=== PATIENT | female | born 1985 | race Two or more races ===

== ENCOUNTER 2024-04-18 19:08 | Inpatient (IN) | payer MEDICAID ==
[~2024-04-18] VITALS: Ht 175.3 cm; Wt 120.7 kg
[~2024-04-18 19:08] MED LIST: PRED5PAK2
[2024-04-18 20:00] LABS: Basophils # (auto) 0 10 ^3/uL (0-0.2); Basophils % (auto) 0.6 % (0.0-2.0); Eosinophils # (auto) 0.1 10 ^3/uL (0-0.8); Eosinophils % (auto) 2.1 % (0.0-7.0); Hematocrit 34.6 % (36.0-46.0); Hemoglobin 11.4 g/dL (12.2-16.2); Lymphocytes # (auto) 1.8 10 ^3/uL (0.4-5.4); Lymphocytes % (auto) 25.5 % (10.0-50.0); Mean Corpuscular Hemoglobin 30.2 pg (28.0-32.0); Mean Corpuscular Hgb Conc. 32.8 g/dL (32.0-36.0); Monocytes # (auto) 0.8 10 ^3/uL (0-1.3); Monocytes % (auto) 11.6 % (0.0-12.0); Neutrophils # (auto) 4.3 10 ^3/uL (1.6-8.6); Neutrophils % (auto) 60.2 % (37.0-80.0); Platelet Count (auto) 265 10^3/uL (140-450); Red Blood Cells 3.76 10^6/uL (4.0-5.20); Red Cell Distribution Width 13.8 % (11.8-14.3); White Blood Cell 7.1 10^3/uL (4.4-10.8)
[2024-04-18 20:09] LABS: Potassium 3.6 mmol/L (3.5-5.1); Sodium 142 mmol/L (136-145)
[2024-04-18 20:10] LABS: Anion Gap 7 (5-15); Carbon Dioxide 27 mmol/L (20-31)
[2024-04-18 20:11] LABS: Calcium 10.1 mg/dL (8.7-10.4)
[2024-04-18 20:14] LABS: Chloride 108 mmol/L (98-107)
[2024-04-18 20:15] LABS: BUN/Creatinine Ratio 16.5 (10.0-20.0); Blood Urea Nitrogen 15 mg/dL (9-23); Glucose 78 mg/dL (74-106)
[2024-04-18 20:19] LABS: INR 1.03 (0.9-1.15); Prothrombin Time 10.9 sec (9.3-11.8)
--- NOTE | 2024-04-18 20:28 | DVH ---
EXAM: CT LOWER EXTREMITY NON JOINT RIGH INDICATION: PAIN EXAM DATE: 04/18/2024 07:54 PM COMPARISON: None TECHNIQUE: Multiple axial CT images of the right distal lower extremity were obtained using bone [employer] rithm. Axial and coronal reformatting was done. Bone and soft tissue windows were reviewed. Radiation Dose Information: CT Dose: CTDI volume is 7.75 mGy. Dose-length product is 411.29 mGy*cm Findings: There is no evidence of an acute fracture, dislocation, blastic, or lytic lesions. No radiopaque foreign bodies. No joint effusion. Superficial soft tissue ulceration along the distal malin. No evidence of osseous o r muscular involvement. Impression: 1. No acute osseous abnormality. 2. Superficial soft tissue ulceration along the distal malin. 3. No evidence of osseous or muscular involvement.
--- NOTE | 2024-04-18 21:25 | ED.PDOC ---
Musculoskeletal HPI Comments This patient is a pleasant but morbidly obese 38-year-old female who arrives to the ED today via EMS due to a right lower extremity bleeding concern that occurred approximately 1 hour prior to arrival. Patient states she has had a right lower extremity leg wound for the past six years that has never healed. Patient states she has had fluid management in the past, but is currently on her own. Patient states that she saw something on her leg and rubbed it which caused significant bleeding. Patient contacted EMS and they brought her to our facility. Patient arrives with continued mild bleeding and a blood saturated leg dressing. Chief Complaint: Lower Extremity Time Seen by MD: 19:14 Primary Care Provider: ALEXA King Notes: Nurses Notes, Dump Motor Operator Notes Allergies: Coded Allergies: NO KNOWN ALLERGIES (Unverified , 09/30/10) Home Meds Reported Medications Prednisone (Sterapred 12 Day) 5 Mg Matheus 09/30/10 Information Source: Patient, Emergency Med Personnel Mode of Arrival: EMS Location: Right Extremity Location: Leg Timing: Minutes Prehospital treatment: None Severity: Moderate Able to Move Extremity: Yes Bear Weight: Fully Pain: Mild Hand Dominance: Right Mechanism: Spontaneous Circumstances: Spontaneous Onset of Symptoms: Spontaneous DVT Risk Factors: NONE Past Medical History PAST MEDICAL HISTORY: Denies Past Medical History (Other): Patient has a multiyear history of right lower extremity nonhealing wound. Surgical History: Denies all surgeries SURG TECH History: No Pertinent SURG TECH History Family History Family History: Reviewed,noncontributory to illness, No family hx of Cancer, No family hx of DM, No family hx of Heart liza, No family hx of HTN, No family hx ofKidney liza, No family hx of Liver liza, No family hx of Lung liza, No family hx of Stroke Social History Smoker: Non-Smoker Alcohol: Denies ETOH Use Drugs: Denies Drug Use Lives In: Home Constitutional: denies: chills, diaphoresis, fatigue, fever, malaise, sweats, weakness, others EENTM: denies: blurred vision, double vision, ear bleeding, ear discharge, ear drainage, ear pain, ear ringing, eye pain, eye redness, hearing loss, mouth pain, mouth swelling, nasal discharge, nose bleeding, nose congestion, nose pain, photophobia, tearing, throat pain, throat swelling, voice changes, others Respiratory: denies: cough, hemoptysis, orthopnea, SOB at rest, shortness of breath, SOB with excertion, stridor, wheezing, others Cardiovascular: denies: chest pain, dizzy spells, diaphoresis, Dyspnea on exertion, edema, irregular heart beat, left arm pain, lightheadedness, palpitations, PND, syncope, others Gastrointestinal: denies: abdomen distended, abdominal pain, blood streaked bowels, constipated, diarrhea, dysphagia, difficulty swallowing, hematemesis, melena, nausea, poor appetite, poor fluid intake, rectal bleeding, rectal pain, vomiting, others Genitourinary: denies: abnormal vagina bleeding, burning, dyspareunia, dysuria, flank pain, frequency, hematuria, incontinence, pain, , vagina discharge, urgency, others Neurological: denies: dizziness, fainting, headache, left sided numbness, left sided weakness, numbness, paresthesia, pre-existing deficit, right sided numbness, right sided weakness, seizure, speech problems, tingling, tremors, weakness, others Musculoskeletal: denies: back pain, gout, joint pain, joint swelling, muscle pain, muscle stiffness, neck pain, others Integumetry: reports: wounds (Bleeding right lower extremity wound); denies: bruises, change in color, change in hair/nails, dryness, laceration, lesions, lumps, rash, others Allergic/Immunocompromised: denies: Difficulty Healing, Frequent Infections, Hives, Itching, others Hematologic/Lymphatic: denies: anemia, blood clots, easy bleeding, easy bruising, swollen glands, others Psychiatric: denies: anxiety, bipolar disorder, depression, hopeless, panic disorder, schizophrenia, sleepless, suicidal, others Physical Exam General Appearance: Mild Distress (Moderate distress due to anxiety related to the patient's bleeding wound.), Obese HEENT: Normal ENT Inspection, Pharynx Normal, TMs Normal Neck: Full Range of Motion, Non-Tender, Normal, Normal Inspection Respiratory: Chest Non-Tender, Lungs Clear, No Accessory Muscle Use, No Respiratory Distress, Normal Breath Sounds Cardiovascular: No Edema, No JVD, No Murmur, No Gallop, Normal Peripheral Pulses, Regular Rate/Rhythm Breast Exam: Deferred Gastrointestinal: No Organomegaly, Non Tender, No Pulsatile Mass, Normal Bowel Sounds, Soft Genitalia: Deferred Pelvic: Deferred Rectal: Deferred Extremities: No calf tenderness, Normal capillary refill, Normal range of motion, No pedal edema Neurologic: Alert, results engineer II-XII nml as Tested, No Motor Deficits, Normal Affect, Normal Mood, No Sensory Deficits Cerebellar Function: Normal Reflexes: Normal Skin: Wounds (Patient has a large polyp sized eschar and blood weeping wound to the right lower malin. Localized erythema without edema. No lymphangitis.) Lymphatic: No Adenopathy Was a procedure done? Was a procedure done?: No Differential Diagnosis EXT Differential Diagnosis: Other (Sepsis, osteomyelitis, nonhealing wound) X-Ray, Labs, Meds, VS Vital Signs Date Time Temp Pulse Resp B/P (MAP) Pulse Ox O2 Delivery O2 Flow Rate FiO2 04/18/24 19:18 98.3 77 18 146/86 (106) 99 Lab Test 04/18/24 19:47 Range/Units White Blood Count 7.1 4.4-10.8 10^3/uL Red Blood Count 3.76 L 4.0-5.20 10^6/uL Hemoglobin 11.4 L 12.2-16.2 g/dL Hematocrit 34.6 L 36.0-46.0 % Mean Corpuscular Volume 92.0 80.0-100.0 fL Mean Corpuscular Hemoglobin 30.2 28.0-32.0 pg Mean Corpuscular Hemoglobin Concent 32.8 32.0-36.0 g/dL Red Cell Distribution Width 13.8 11.8-14.3 % Platelet Count 265 140-450 10^3/uL Mean Platelet Volume 8.3 6.9-10.8 fL Neutrophils (%) (Auto) 60.2 37.0-80.0 % Lymphocytes (%) (Auto) 25.5 10.0-50.0 % Monocytes (%) (Auto) 11.6 0.0-12.0 % Eosinophils (%) (Auto) 2.1 0.0-7.0 % Basophils (%) (Auto) 0.6 0.0-2.0 % Neutrophils # (Auto) 4.3 1.6-8.6 10 ^3/uL Lymphocytes # (Auto) 1.8 0.4-5.4 10 ^3/uL Monocytes # (Auto) 0.8 0-1.3 10 ^3/uL Eosinophils # (Auto) 0.1 0-0.8 10 ^3/uL Basophils # (Auto) 0 0-0.2 10 ^3/uL Nucleated Red Blood Cells 0.0 % Prothrombin Time 10.9 9.3-11.8 sec Prothrombin Time INR 1.03 0.9-1.15 Sodium Level 142 136-145 mmol/L Potassium Level 3.6 3.5-5.1 mmol/L Chloride Level 108 H 98-107 mmol/L Carbon Dioxide Level 27 20-31 mmol/L Anion Gap 7 5-15 Blood Urea Nitrogen 15 9-23 mg/dL Creatinine 0.91 0.550-1.02 mg/dL Glomerular Filtration Rate Calc 84 >90 mL/min BUN/Creatinine Ratio 16.5 10.0-20.0 Serum Glucose 78 74-106 mg/dL Lactic Acid Level 0.9 0.4-2.0 mmol/L Calcium Level 10.1 8.7-10.4 mg/dL X-Ray, Labs, Meds, VS Comment All studies performed in the ED today were evaluated by me personally. Serum laboratories were unremarkable for any acute systemic process. CT of the right lower extremity was unremarkable for any osteomyelitis formation. This wound is not healing and now has bleeding concerns. Patient will be admitted for possible surgical evaluation and wound care assessment. Time of 1ST Reevaluation: 21:24 Reevaluation 1ST: Improved Consultation: PCP Patient Education/Counseling: Diagnosis, Treatment Family Education/Counseling: Diagnosis, Treatment Departure 1 Departure Time of Disposition: 21:25 Impression: Primary Impression: Open leg wound Disposition: ADMITTED INPATIENT Condition: Stable Discharged With: Self Critical Care Note Critical Care Time?: No Stability Stability form required: No Heart Score Heart Score: Heart Score Response (Comments) Value History N/A 0 EKG N/A 0 Age N/A 0 Risk Factors N/A 0 Troponin N/A 0 Total 0 JOSEFINA WASHINGTON PAC Apr 18, 2024 21:25
[2024-04-18] MEDS ORDERED: VANCOMYCIN PER PHARMACY 0 MG IV SCH (22:15)
[2024-04-18] MEDS ORDERED: MORPHINE SULFATE INJ 2 MG/ml SYRG IV PRN (23:15)
[2024-04-18] MEDS ORDERED: NITROGLYCERIN 0.4 MG SL TAB SL PRN (23:15)
--- NOTE | 2024-04-18 23:23 | DVHHP2 ---
History of Present Illness Reason for Visit: Open leg wound History of Present Illness The patient is a 38-year-old female with past medical history of lupus and chronic nonhealing wound presented to [facility] ED for evaluation of right lower extremity open wound. Patient reports she has had a right lower extremity leg wound for the past 5 years that has never healed, has home health nurse following treatment. Patient was seen and evaluated in the ED, laboratory data shows WBC 7.1, hemoglobin 11.4, hematocrit 34.6, platelets 265, sodium 142, potassium 3.6, BUN 15, creatinine 0.91, GFR 84, glucose 78, calcium 10.1, blood pressure 146/86, heart rate 77, temperature 98.3 F, O2 saturation 99% on room air. CT of the right lower extremity revealing superficial soft tissue ulceration along the distal malin, no acute osseous abnormality. Patient was started on IV antibiotic regimen vancomycin, please see medication orders section in the computer. On my assessment, patient denies chest pain, no headache, no dizziness, no diaphoresis, no shortness of breath, no nausea, no vomiting, no fever, no chills. Patient was admitted for further evaluation and medical management. Past Medical History Lupus, Chronic wound, Past Surgical History Denies all surgeries Family History Reviewed, noncontributory to the management of this case. Past Social History The patient lives at home, denies smoking, alcohol or illicit drugs abuse. Review of Systems Constitutional: Yes: Weakness; No: Fever, Chills, Sweats, Malaise, Other Eyes: No: Pain, Vision change, Conjunctivae inflammation, Eyelid inflammation, Other, Redness ENT: No: Ear pain, Ear discharge, Nose pain, Nose discharge, Nose congestion, Mouth pain, Mouth swelling, Throat pain, Throat swelling, Other Respiratory: No: Cough, Dry, Shortness of breath, SOB with excertion, Wheezing, Hemoptysis, Pleuritic Pain, Sputum, Wheezing, Other Cardiovascular: No: Chest Pain, Palpitations, Orthopnea, Paroxysmal Noc. Dyspnea, Edema, Lt Headedness, Other Gastrointestinal: No: Nausea, Vomiting, Abdominal Pain, Diarrhea, Constipation, Melena, Hematochezia, Other Genitourinary: No Dysuria, No Frequency, No Incontinence, No Hematuria, No Retention, No Other Musculoskeletal: other (Wound right lower extremity wound.); No: neck pain, shoulder pain, arm pain, back pain, hand pain, leg pain, foot pain Skin: No: Rash, Lesions, Jaundice, Bruising, Other Neurological: No: Weakness, Numbness, Incoordination, Change in speech, Confusion, Seizures, Other Allergies: Coded Allergies: NO KNOWN ALLERGIES (Unverified , 09/30/10) Medications Current Medications Medications Dose Ordered Sig/Jose Route Start Time Stop Time Status Last Admin Dose Admin Vancomycin HCl 0 ml @ 0 mls/hr UD IV 04/18/24 22:15 UNV Vancomycin HCl 250 ml @ 250 mls/hr Q1H IV 04/18/24 22:30 04/19/24 00:29 Exam Vital Signs Vital Signs Date Time Temp Pulse Resp B/P (MAP) Pulse Ox O2 Delivery O2 Flow Rate FiO2 04/18/24 21:52 97.9 70 16 122/65 (84) 100 97.9 General Appearance: Alert, Oriented X3, Cooperative, No acute distress HEENT: Atraumatic, PERRLA, EOMI, Mucous membr. moist/pink Respiratory: Clear to auscultation, Normal air movement Cardiovascular: Regular rate, Normal S1, Normal S2, No murmurs Abdominal: Normal bowel sounds, Soft, No tenderness, No hepatospenomegaly, No masses Extremities: No clubbing, No cyanosis, No edema, Normal pulses, Other (Right lower extremity stent dizziness) Skin: No rashes, No breakdown, No significant lesion Neuro: Normal speech, Normal tone, Sensation intact, Cranial nerves 3-12 NL, Reflexes 2+, Other (Generalized weakness) Psych/Mental Status: Mental status NL, Mood NL Labs/Xrays Labs Test 04/18/24 19:47 Range/Units White Blood Count 7.1 4.4-10.8 10^3/uL Red Blood Count 3.76 L 4.0-5.20 10^6/uL Hemoglobin 11.4 L 12.2-16.2 g/dL Hematocrit 34.6 L 36.0-46.0 % Mean Corpuscular Volume 92.0 80.0-100.0 fL Mean Corpuscular Hemoglobin 30.2 28.0-32.0 pg Mean Corpuscular Hemoglobin Concent 32.8 32.0-36.0 g/dL Red Cell Distribution Width 13.8 11.8-14.3 % Platelet Count 265 140-450 10^3/uL Mean Platelet Volume 8.3 6.9-10.8 fL Neutrophils (%) (Auto) 60.2 37.0-80.0 % Lymphocytes (%) (Auto) 25.5 10.0-50.0 % Monocytes (%) (Auto) 11.6 0.0-12.0 % Eosinophils (%) (Auto) 2.1 0.0-7.0 % Basophils (%) (Auto) 0.6 0.0-2.0 % Neutrophils # (Auto) 4.3 1.6-8.6 10 ^3/uL Lymphocytes # (Auto) 1.8 0.4-5.4 10 ^3/uL Monocytes # (Auto) 0.8 0-1.3 10 ^3/uL Eosinophils # (Auto) 0.1 0-0.8 10 ^3/uL Basophils # (Auto) 0 0-0.2 10 ^3/uL Nucleated Red Blood Cells 0.0 % Prothrombin Time 10.9 9.3-11.8 sec Prothrombin Time INR 1.03 0.9-1.15 Sodium Level 142 136-145 mmol/L Potassium Level 3.6 3.5-5.1 mmol/L Chloride Level 108 H 98-107 mmol/L Carbon Dioxide Level 27 20-31 mmol/L Anion Gap 7 5-15 Blood Urea Nitrogen 15 9-23 mg/dL Creatinine 0.91 0.550-1.02 mg/dL Glomerular Filtration Rate Calc 84 >90 mL/min BUN/Creatinine Ratio 16.5 10.0-20.0 Serum Glucose 78 74-106 mg/dL Lactic Acid Level 0.9 0.4-2.0 mmol/L Calcium Level 10.1 8.7-10.4 mg/dL PATIENT: YESI ARNOLDNUSRATCCT: [id number] UNIT: [id number] : 1985 LOC: ER ROOM / BED: / AGE / SEX: 38 / F ADM STATUS: REG ER SERVICE 24 ORDERING PHYSICIAN: JOSEFINA WASHINGTON PAC PROCEDURE(s): RLEX - LOWER EXTREMITY NON JOINT RIGH REASON: PAIN ORDER NUMBER(s): [id number], ACCESSION NUMBER(s): [id number] EXAM: CT LOWER EXTREMITY NON JOINT RIGH INDICATION: PAIN EXAM DATE: 04/18/2024 07:54 PM COMPARISON: None TECHNIQUE: Multiple axial CT images of the right distal lower extremity were obtained using bone algorithm. Axial and coronal reformatting was done. Bone and soft tissue windows were reviewed. Radiation Dose Information: CT Dose: CTDI volume is 7.75 mGy. Dose-length product is 411.29 mGy*cm Findings: There is no evidence of an acute fracture, dislocation, blastic, or lytic lesions. No radiopaque foreign bodies. No joint effusion. Superficial soft tissue ulceration along the distal malin. No evidence of osseous or muscular involvement. Impression: 1. No acute osseous abnormality. 2. Superficial soft tissue ulceration along the distal malin. 3. No evidence of osseous or muscular involvement. Assessment/Plan Assessment/Plan Open leg wound Generalized weakness History of systemic lupus erythematosus Plan 1. Admit to [facility] 2. Breathing treatment 3. Pain control management 4. IV antibiotic management 5. Management of fluids and electrolytes 6. Consultation for hospitalist/wound care 7. Diagnostic test right lower extremity CT 8. DVT prophylaxis-on Lovenox 9. Repeat labs CBC, CMP in a.m. 10. Continue with current medical management 11. Treatment plan discussed with patient and RN. Patient verbalized understanding. Plan discussed with: Patient, Other (RN) Problem List: (1) Open leg wound (2) Generalized weakness (3) History of systemic lupus erythematosus Date of Service: Apr 18, 2024 Billing Provider: BC SEGUNDO DNP Common Visit Codes: [id number] INP/OBS CARE (HIGH) BC SEGUNDO DNP Apr 18, 2024 23:23
[2024-04-19] VITALS (7 sets, daily range): BP systolic 116–160; BP diastolic 6–90; PULSE 18–112; RESP 18–20; TEMP 97.6–98.4; O2SAT 90–100
[2024-04-19] MEDS: VANCOMYCIN 1GM/250ML KIT 250 ML IV ONE (00:16)
[2024-04-19] MEDS: VANCOMYCIN 1GM/250ML KIT 250 ML IV SCH (00:51)
[2024-04-19] MEDS: ONDANSETRON HCL 4 MG/2 ML VIAL IV PRN (01:08)
[2024-04-19] MEDS: MORPHINE SULFATE INJ 2 MG/ml SYRG IV PRN (01:09)
[2024-04-19] MEDS: HYDROcodone-ACET 5/325MG TAB PO PRN (04:35)
[2024-04-19] MEDS: SODIUM CHLOR 0.9% PF (SALINE LOCK) 10ML VIAL/SYR IV SCH (06:00)
[2024-04-19] MEDS: MULTIPLE VITAMIN TAB PO SCH (08:39)
[2024-04-19] MEDS: ZINC SULFATE 220mg CAP or TAB PO SCH (08:39)
[2024-04-19] MEDS: ASCORBIC ACID 500 MG TAB PO SCH (08:40)
[2024-04-19] MEDS: ENOXAPARIN SOD 40 MG/0.4 ML SYRINGE SC SCH (08:41)
[2024-04-19] MEDS ORDERED: CLOPIDOGREL BISULFATE 75 MG TAB PO SCH (10:00)
[2024-04-19 10:40] LABS: Basophils # (auto) 0 10 ^3/uL (0-0.2); Basophils % (auto) 0.2 % (0.0-2.0); Eosinophils # (auto) 0.2 10 ^3/uL (0-0.8); Eosinophils % (auto) 2.8 % (0.0-7.0); Hematocrit 32.3 % (36.0-46.0); Hemoglobin 10.6 g/dL (12.2-16.2); Lymphocytes # (auto) 1.6 10 ^3/uL (0.4-5.4); Lymphocytes % (auto) 27.4 % (10.0-50.0); Mean Corpuscular Hgb Conc. 32.7 g/dL (32.0-36.0); Mean Corpuscular Volume 91.8 fL (80.0-100.0); Monocytes # (auto) 0.7 10 ^3/uL (0-1.3); Monocytes % (auto) 12.5 % (0.0-12.0); Neutrophils # (auto) 3.2 10 ^3/uL (1.6-8.6); Neutrophils % (auto) 57.1 % (37.0-80.0); Nucleated Red Blood Cells % 0.4 %; Platelet Count (auto) 225 10^3/uL (140-450); Red Blood Cells 3.51 10^6/uL (4.0-5.20); Red Cell Distribution Width 13.7 % (11.8-14.3); White Blood Cell 5.7 10^3/uL (4.4-10.8)
[2024-04-19 11:14] LABS: Alanine Aminotransferase 14 U/L (7-40); Albumin 3.6 g/dL (3.2-4.8); Alkaline Phosphatase 73 U/L (46-116); Anion Gap 6 (5-15); Aspartate Aminotransferase 16 U/L (13-40); BUN/Creatinine Ratio 15.7 (10.0-20.0); Bilirubin, Total 0.2 mg/dL (0.2-1.0); Blood Urea Nitrogen 14 mg/dL (9-23); Calcium 9.7 mg/dL (8.7-10.4); Carbon Dioxide 27 mmol/L (20-31); Chloride 110 mmol/L (98-107); Glucose 92 mg/dL (74-106); Potassium 3.8 mmol/L (3.5-5.1); Sodium 143 mmol/L (136-145); Total Protein 6.9 g/dL (5.7-8.2)
[2024-04-19 12:41] LABS: Erythrocyte Sedimentation Rate 54 mm/hr (0-20)
--- NOTE | 2024-04-19 13:11 | DVHPN2 ---
Subjective 38-year-old lady with chronic right leg ulcerations. She was under the care of Wound Care team at [facility] but apparently she stopped three years ago. She has lupus. She said she saw a reproductive surgeon three months ago. Reviewed: Care Plan, H&P, Labs, Medications, Previous Orders, Radiology Changes from previous H/P or p: No Changes Objective Vitals Vital Signs Date Time Temp Pulse Resp B/P (MAP) Pulse Ox O2 Delivery O2 Flow Rate FiO2 04/19/24 10:16 61 18 116/68 04/19/24 09:00 97.6 96 97.6 04/19/24 08:05 Room Air* 0 21 Intake/Output Intake and Output 04/19/24 07:00 Intake Total 490 ml Balance 490 ml Intake Oral 240 ml IV Total 250 ml General Appearance: Alert, Oriented X3, Cooperative, No acute distress HEENT: Atraumatic Lungs: Clear to auscultation Cardiovascular: Regular rate Extremities: Other (Right mid lower pretibial area large ulcerations very sensitive to touch/tender with surrounding erythema and warmth) Medications Current Medications Medications Dose Ordered Sig/Jose Route Start Time Stop Time Status Last Admin Dose Admin Vancomycin HCl 0 ml @ 0 mls/hr UD IV 04/18/24 22:15 Sodium Chloride 10 ml Q8HR IV 04/19/24 06:00 04/19/24 06:00 10 ML Acetaminophen/ Hydrocodone Bitart 1 tab Q4HP PRN PO 04/18/24 23:15 04/19/24 04:35 1 TAB Ondansetron HCl 4 mg Q4HP PRN IV 04/18/24 23:15 04/19/24 01:08 4 MG Docusate Sodium 100 mg BIDPRN PRN PO 04/18/24 23:15 Enoxaparin Sodium 40 mg DAILY SC 04/19/24 10:00 Acetaminophen 650 mg Q6HP PRN PO 04/18/24 23:15 Morphine Sulfate 2 mg Q4HPRN PRN IV 04/18/24 23:15 04/19/24 10:16 2 MG Nitroglycerin 0.4 mg Q5MINP PRN SL 04/18/24 23:15 Morphine Sulfate 2 mg Q30M PRN IV 04/18/24 23:15 Zinc Sulfate 220 mg DAILY PO 04/19/24 10:00 04/19/24 08:39 220 MG Ascorbic Acid 500 mg BID PO 04/19/24 10:00 04/19/24 08:40 500 MG Multivitamins 1 tab DAILY PO 04/19/24 10:00 04/19/24 08:39 1 TAB Vancomycin HCl 250 ml @ 200 mls/hr Q12H IV 04/19/24 17:00 Laboratory Results Laboratory Tests 04/19/24 10:08 Chemistry Test 04/18/24 19:47 04/19/24 10:08 Calcium Level 10.1 mg/dL (8.7-10.4) 9.7 mg/dL (8.7-10.4) Albumin 3.6 g/dL (3.2-4.8) Total Protein 6.9 g/dL (5.7-8.2) Coagulation Test 04/18/24 19:47 Prothrombin Time 10.9 sec (9.3-11.8) Prothrombin Time INR 1.03 (0.9-1.15) LFT Test 04/19/24 10:08 Alanine Aminotransferase (ALT) 14 U/L (7-40) Alkaline Phosphatase 73 U/L (46-116) Aspartate Amino Transferase (AST) 16 U/L (13-40) Total Bilirubin 0.2 mg/dL (0.2-1.0) Assessment/Plan Assessment/Plan Right lower extremity/mid lower pretibial large ulcer with surrounding cellulitis Lupus Morbid obesity Anemia Medical noncompliance or poor compliance Plan: Check sed rate and CRP. Wound consult. Podiatry consult. Further plan per orders Plan discussed with: Patient My Orders Orders - ERYN JEAN-BAPTISTE MD Procedure Category Date Status Time Urinalysis LAB 04/19/24 Logged 11:48 Complete Blood Count LAB 04/20/24 Verified 06:00 Wound Culture W/ Gs BESS 04/19/24 Logged 12:39 Cleanse Wound With RIO 04/19/24 In Process Wound Clean 12:39 * Dietary Consult CONS 04/19/24 Transmitted 12:39 *Podiatry Consult CONS 04/19/24 Transmitted Musson(Dvmg) 13:04 Rt Low Ext Art Duplex US 04/19/24 Logged 13:05 * Wound Consult CONS 04/19/24 Transmitted Date of Service: Apr 19, 2024 Billing Provider: ERYN JEAN-BAPTISTE MD Common Visit Codes: [id number] INP/OBS CARE(HIGH) ERYN JEAN-BAPTISTE MD Apr 19, 2024 13:11
--- NOTE | 2024-04-19 14:54 | DVH ---
Right Lower Extremity Arterial Duplex Clinical History: arterial Comparison: None Technique: Duplex Doppler evaluation including color Doppler and spectral/pulsed waveform analysis of the lower extremity arteries was performed. Findings: RIGHT: Peak systolic velocities are as follows: BUSINESS ENGLISH INSTRUCTOR 171 cm/s Deep femoral 115 cm/s SFA proximal 180 cm/s SFA mid-portion 181 cm/s SFA distal 136 cm/s Popliteal 54 cm/s Posterior tibial 58 cm/s Dorsalis pedis 58 cm/s The waveforms are triphasic with diastolic flow. IMPRESSION: 1. No hemodynamically significant stenosis based on peak systolic velocity criteria. REFERENCE VALUES, [facility] ([facility]) vascular Imaging Lab Criteria: Peak systolic velocity ranges (in cm/sec) are as follows: <150 cm/s - <20 % stenosis 150-200 cm/s - 20-49% stenosis 200-300 cm/s - 50-75% stenosis >300 cm/s -> 75% stenosis
[2024-04-19] MEDS: VANCOMYCIN 1.25GM/250ML 250 ML IV SCH (17:49)
[2024-04-19] MEDS: DOCUSATE SOD 100 MG CAP PO PRN (21:42)
[2024-04-20 01:00] VITALS: BP 112/51; PULSE 82; RESP 18; TEMP 98.1; O2SAT 97
[2024-04-20 05:00] VITALS: BP 105/52; PULSE 66; RESP 18; TEMP 98.2; O2SAT 96
[2024-04-20 07:49] LABS: Basophils # (auto) 0 10 ^3/uL (0-0.2); Basophils % (auto) 0.3 % (0.0-2.0); Eosinophils # (auto) 0.2 10 ^3/uL (0-0.8); Eosinophils % (auto) 3.5 % (0.0-7.0); Hematocrit 31.6 % (36.0-46.0); Hemoglobin 10.5 g/dL (12.2-16.2); Lymphocytes % (auto) 35.3 % (10.0-50.0); Mean Corpuscular Hemoglobin 30.5 pg (28.0-32.0); Mean Corpuscular Hgb Conc. 33.1 g/dL (32.0-36.0); Mean Corpuscular Volume 92.1 fL (80.0-100.0); Monocytes # (auto) 0.7 10 ^3/uL (0-1.3); Monocytes % (auto) 11.7 % (0.0-12.0); Neutrophils # (auto) 2.8 10 ^3/uL (1.6-8.6); Neutrophils % (auto) 49.2 % (37.0-80.0); Platelet Count (auto) 227 10^3/uL (140-450); Red Blood Cells 3.43 10^6/uL (4.0-5.20); Red Cell Distribution Width 13.6 % (11.8-14.3); White Blood Cell 5.7 10^3/uL (4.4-10.8)
[2024-04-20 09:00] VITALS: BP 120/66; PULSE 68; RESP 16; TEMP 97.8; O2SAT 99
--- NOTE | 2024-04-20 12:13 | DVHPN2 ---
Reviewed: Care Plan, H&P, Labs, Medications, Previous Orders, Radiology Changes from previous H/P or p: No Changes Objective Vitals Vital Signs Date Time Temp Pulse Resp B/P (MAP) Pulse Ox O2 Delivery O2 Flow Rate FiO2 04/20/24 09:00 97.8 68 16 120/66 (84) 99 97.8 04/19/24 20:00 Room Air* 0 21 Intake/Output Intake and Output 04/20/24 07:00 Intake Total 815 ml Balance 815 ml Intake Oral 815 ml General Appearance: Alert, Oriented X3, Cooperative, No acute distress HEENT: Atraumatic Lungs: Clear to auscultation Cardiovascular: Regular rate Extremities: Other (Right mid lower pretibial area large ulcerations very sensitive to touch/tender with surrounding erythema and warmth) Medications Current Medications Medications Dose Ordered Sig/Jose Route Start Time Stop Time Status Last Admin Dose Admin Vancomycin HCl 0 ml @ 0 mls/hr UD IV 04/18/24 22:15 Sodium Chloride 10 ml Q8HR IV 04/19/24 06:00 04/20/24 05:20 10 ML Acetaminophen/ Hydrocodone Bitart 1 tab Q4HP PRN PO 04/18/24 23:15 04/20/24 09:44 1 TAB Ondansetron HCl 4 mg Q4HP PRN IV 04/18/24 23:15 04/19/24 01:08 4 MG Docusate Sodium 100 mg BIDPRN PRN PO 04/18/24 23:15 04/20/24 09:44 100 MG Enoxaparin Sodium 40 mg DAILY SC 04/19/24 10:00 Acetaminophen 650 mg Q6HP PRN PO 04/18/24 23:15 Morphine Sulfate 2 mg Q4HPRN PRN IV 04/18/24 23:15 04/20/24 01:12 2 MG Nitroglycerin 0.4 mg Q5MINP PRN SL 04/18/24 23:15 Morphine Sulfate 2 mg Q30M PRN IV 04/18/24 23:15 Zinc Sulfate 220 mg DAILY PO 04/19/24 10:00 04/20/24 09:43 220 MG Ascorbic Acid 500 mg BID PO 04/19/24 10:00 04/20/24 09:43 500 MG Multivitamins 1 tab DAILY PO 04/19/24 10:00 04/20/24 09:43 1 TAB Vancomycin HCl 250 ml @ 200 mls/hr Q12H IV 04/19/24 17:00 04/20/24 05:09 200 MLS/HR Laboratory Results Laboratory Tests 04/19/24 10:08 04/20/24 06:09 Labs and/or images reviewed: Labs reviewed by me, Image(s) reviewed by me Assessment/Plan Assessment/Plan Right lower extremity/mid lower pretibial large ulcer with surrounding cellulitis: CT negative for any osteomyelitis., wound cultures pending, continue vanco Peripheral arterial disease ruled out Lupus Morbid obesity Anemia Medical noncompliance or poor compliance Plan discussed with: Patient Date of Service: Apr 20, 2024 Billing Provider: SERGIO PICHARDO MD Common Visit Codes: [id number] INP/OBS CARE(HIGH) SERGIO PICHARDO MD Apr 20, 2024 12:13
--- NOTE | 2024-04-20 12:25 | DVHINCON2 ---
Date Seen: Apr 20, 2024 Reason for Consultation Right leg wound History of Present Illness The patient is a 38-year-old female with past medical history of lupus and chronic nonhealing wound presented to [facility] ED for evaluation of right lower extremity open wound. Patient reports she has had a right lower extremity leg wound for the past 5 years that has never healed, has home health nurse following treatment. Patient was seen and evaluated in the ED, laboratory data shows WBC 7.1, hemoglobin 11.4, hematocrit 34.6, platelets 265, sodium 142, potassium 3.6, BUN 15, creatinine 0.91, GFR 84, glucose 78, calcium 10.1, blood pressure 146/86, heart rate 77, temperature 98.3 F, O2 saturation 99% on room air. CT of the right lower extremity revealing superficial soft tissue ulceration along the distal malin, no acute osseous abnormality. Patient was started on IV antibiotic regimen vancomycin, please see medication orders s ection in the computer. On my assessment, patient denies chest pain, no headache, no dizziness, no diaphoresis, no shortness of breath, no nausea, no vomiting, no fever, no chills. Patient was admitted for further evaluation and medical management. Past Medical History See H&P Past Surgical History See H&P Family History: Diabetes mellitus G8 MOTHER Allergies: Coded Allergies: NO KNOWN ALLERGIES (Unverified , 09/30/10) Home Meds Reported Medications Prednisone (Sterapred 12 Day) 5 Mg Matheus 09/30/10 Current Medications Current Medications Medications (Trade) Dose Ordered Sig/Jose Route PRN Reason Start Time Stop Time Status Last Admin Vancomycin HCl 250 ml @ 200 mls/hr Q12H IV 04/19/24 17:00 04/20/24 05:09 Vital Signs Vital Signs Date Time Temp Pulse Resp B/P (MAP) Pulse Ox O2 Delivery O2 Flow Rate FiO2 04/20/24 09:00 97.8 68 16 120/66 (84) 99 97.8 04/19/24 20:00 Room Air* 0 21 Physical Exam DERMATOLOGIC EXAM: - Skin is dry and cool to the touch dry bilaterally. - Nails 1-5 of the bilateral foot are thickened, discolored, dystrophic, and tender to palpate with subungual debris - Hair loss noted to bilateral feet Wound #1: Location: Right anterior leg Measurements: Length 5 cm x width 4 cm x depth 1 cm. Wound margins: Hyperkeratotic. Wound base: Full thickness. General Appearance: Fibrotic Probes to Bone: No Purulent drainage: No Serous drainage: No Erythema: Periwound VASCULAR EXAM: - DP and PT pulses are palpable bilaterally. 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 - Feet are cool to touch compared to lower legs bilaterally. NEUROLOGIC EXAM: - Normal light touch sensation to the superficial peroneal, deep peroneal, blum ral, saphenous, and tibial nerve branches. - Protective sensation is diminished as tested with a 5.07 10g [place]ien bilaterally. MUSCULOSKELETAL EXAM: - No gross deformities - Muscle strength is 5/5 and active motion is pain-free and symmetrical bi laterally - No pain or crepitation with passive range of motion bilaterally to all major pedal joints Labs/Diagnostic Data Labs Test 04/20/24 06:09 04/19/24 10:08 04/18/24 19:47 Range/Units White Blood Count 5.7 4.4-10.8 10^3/uL Red Blood Count 3.43 L 4.0-5.20 10^6/uL Hemoglobin 10.5 L 12.2-16.2 g/dL Hematocrit 31.6 L 36.0-46.0 % Mean Corpuscular Volume 92.1 80.0-100.0 fL Mean Corpuscular Hemoglobin 30.5 28.0-32.0 pg Mean Corpuscular Hemoglobin Concent 33.1 32.0-36.0 g/dL Red Cell Distribution Width 13.6 11.8-14.3 % Platelet Count 227 140-450 10^3/uL Mean Platelet Volume 8.6 6.9-10.8 fL Neutrophils (%) (Auto) 49.2 37.0-80.0 % Lymphocytes (%) (Auto) 35.3 10.0-50.0 % Monocytes (%) (Auto) 11.7 0.0-12.0 % Eosinophils (%) (Auto) 3.5 0.0-7.0 % Basophils (%) (Auto) 0.3 0.0-2.0 % Neutrophils # (Auto) 2.8 1.6-8.6 10 ^3/uL Lymphocytes # (Auto) 2.0 0.4-5.4 10 ^3/uL Monocytes # (Auto) 0.7 0-1.3 10 ^3/uL Eosinophils # (Auto) 0.2 0-0.8 10 ^3/uL Basophils # (Auto) 0 0-0.2 10 ^3/uL Nucleated Red Blood Cells 0.0 % Erythrocyte Sedimentation Rate 54 H 0-20 mm/hr Sodium Level 143 136-145 mmol/L Potassium Level 3.8 3.5-5.1 mmol/L Chloride Level 110 H 98-107 mmol/L Carbon Dioxide Level 27 20-31 mmol/L Anion Gap 6 5-15 Blood Urea Nitrogen 14 9-23 mg/dL Creatinine 0.89 0.550-1.02 mg/dL Glomerular Filtration Rate Calc 86 >90 mL/min BUN/Creatinine Ratio 15.7 10.0-20.0 Serum Glucose 92 74-106 mg/dL Calcium Level 9.7 8.7-10.4 mg/dL Total Bilirubin 0.2 0.2-1.0 mg/dL Aspartate Amino Transferase (AST) 16 13-40 U/L Alanine Aminotransferase (ALT) 14 7-40 U/L Alkaline Phosphatase 73 46-116 U/L C-Reactive Protein High Sensitivity 2.58 H <1.0 mg/dL Total Protein 6.9 5.7-8.2 g/dL Albumin 3.6 3.2-4.8 g/dL Prothrombin Time 10.9 9.3-11.8 sec Prothrombin Time INR 1.03 0.9-1.15 Lactic Acid Level 0.9 0.4-2.0 mmol/L Problems(with codes): (1) Open leg wound (2) Generalized weakness (3) History of systemic lupus erythematosus Plan/Recommendation ASSESSMENT: Patient is a 38 year old who was seen in clinic for DM ulcer care PLAN: - The patients chart was reviewed, clinical findings were discussed with the patient, the etiologies of the conditions were discussed in detail, and a treatment plan was agreed to at this time, with both oral and written instructions provided. - reviewed CT which had no osteomyelitis or deeper infection - recommend that we take her to the OR for debridement - we will plan for surgical debridement tomorrow at noon - patient to be NPO at midnight - we will obtain deep cultures in the OR All questions were answered and concerns addressed to the patient's satisfaction. The patient was given the phone number to the clinic and was told how to make contact with the clinic should any concerns or questions arise. Patient understands that if any questions or concerns arise prior to the next appointment, we should be contacted immediately. FOLLOW-UP: Continue to follow while inpatient Plan discussed with: Patient Date of Service: Apr 20, 2024 Billing Provider: ELBA ESTRADA DPM Common Visit Codes: [id number] INP/OBS CARE (HIGH) ELBA ESTRADA DPM Apr 20, 2024 12:25
[2024-04-20 13:00] VITALS: BP 128/74; PULSE 17; PULSE 72; RESP 17; RESP 72; TEMP 97.9; O2SAT 99
[2024-04-20 17:00] VITALS: BP 128/71; PULSE 74; RESP 16; TEMP 98.5; O2SAT 99
[2024-04-20 21:00] VITALS: BP 114/54; PULSE 70; RESP 16; TEMP 98.1; O2SAT 98
[2024-04-21] VITALS (8 sets, daily range): BP systolic 108–132; BP diastolic 62–72; PULSE 71–92; RESP 16–20; TEMP 97.9–98.5; O2SAT 94–100
[2024-04-21 00:05] LABS: Urine Bacteria None Seen /hpf (None Seen)
[2024-04-21 00:11] LABS: Urine Blood Negative /uL (Negative); Urine Clarity Clear (Clear); Urine Color Light-Yellow (Yellow); Urine Protein, UAD Negative (Negative); Urine Squamous Epithelial Cell FEW /hpf (<5); Urine Urobilinogen Normal (Negative); Urine WBC <1 /hpf (0 - 5); Urine pH 5.5 (5.0-9.0)
[2024-04-21] MEDS: VANCOMYCIN 1GM/250ML KIT 250 ML IV SCH (05:46)
[2024-04-21 07:45] LABS: Basophils # (auto) 0 10 ^3/uL (0-0.2); Basophils % (auto) 0.3 % (0.0-2.0); Eosinophils # (auto) 0.2 10 ^3/uL (0-0.8); Eosinophils % (auto) 3.8 % (0.0-7.0); Hematocrit 34.5 % (36.0-46.0); Hemoglobin 11.4 g/dL (12.2-16.2); Lymphocytes # (auto) 1.5 10 ^3/uL (0.4-5.4); Lymphocytes % (auto) 32.6 % (10.0-50.0); Mean Corpuscular Hemoglobin 30.1 pg (28.0-32.0); Mean Corpuscular Hgb Conc. 33.1 g/dL (32.0-36.0); Mean Corpuscular Volume 91.1 fL (80.0-100.0); Monocytes # (auto) 0.4 10 ^3/uL (0-1.3); Neutrophils # (auto) 2.5 10 ^3/uL (1.6-8.6); Neutrophils % (auto) 54.3 % (37.0-80.0); Nucleated Red Blood Cells % 0.1 %; Platelet Count (auto) 247 10^3/uL (140-450); Red Blood Cells 3.79 10^6/uL (4.0-5.20); Red Cell Distribution Width 13.7 % (11.8-14.3); White Blood Cell 4.6 10^3/uL (4.4-10.8)
--- NOTE | 2024-04-21 09:52 | DVHPN2 ---
Reviewed: Care Plan, H&P, Labs, Medications, Previous Orders, Radiology Changes from previous H/P or p: No Changes Objective Vitals Vital Signs Date Time Temp Pulse Resp B/P (MAP) Pulse Ox O2 Delivery O2 Flow Rate FiO2 04/21/24 08:42 98.0 75 18 123/67 (85) 97 98.0 04/20/24 20:00 Room Air* 0 21 Intake/Output Intake and Output 04/21/24 07:00 Intake Total 1450 ml Output Total 300 ml Balance 1150 ml Intake Oral 1200 ml IV Total 250 ml Output Urine Total 300 ml # Voids 2 General Appearance: Alert, Oriented X3, Cooperative, No acute distress HEENT: Atraumatic Lungs: Clear to auscultation Cardiovascular: Regular rate Extremities: Other (Right mid lower pretibial area large ulcerations very sensitive to touch/tender with surrounding erythema and warmth) Medications Current Medications Medications Dose Ordered Sig/Jose Route Start Time Stop Time Status Last Admin Dose Admin Vancomycin HCl 0 ml @ 0 mls/hr UD IV 04/18/24 22:15 Sodium Chloride 10 ml Q8HR IV 04/19/24 06:00 04/21/24 05:47 10 ML Acetaminophen/ Hydrocodone Bitart 1 tab Q4HP PRN PO 04/18/24 23:15 04/20/24 15:05 1 TAB Ondansetron HCl 4 mg Q4HP PRN IV 04/18/24 23:15 04/19/24 01:08 4 MG Docusate Sodium 100 mg BIDPRN PRN PO 04/18/24 23:15 04/20/24 09:44 100 MG Enoxaparin Sodium 40 mg DAILY SC 04/19/24 10:00 Acetaminophen 650 mg Q6HP PRN PO 04/18/24 23:15 Morphine Sulfate 2 mg Q4HPRN PRN IV 04/18/24 23:15 04/21/24 05:51 2 MG Nitroglycerin 0.4 mg Q5MINP PRN SL 04/18/24 23:15 Morphine Sulfate 2 mg Q30M PRN IV 04/18/24 23:15 Zinc Sulfate 220 mg DAILY PO 04/19/24 10:00 04/20/24 09:43 220 MG Ascorbic Acid 500 mg BID PO 04/19/24 10:00 04/20/24 22:52 500 MG Multivitamins 1 tab DAILY PO 04/19/24 10:00 04/20/24 09:43 1 TAB Vancomycin HCl 250 ml @ 250 mls/hr Q12H IV 04/21/24 05:00 04/21/24 05:46 250 MLS/HR Laboratory Results Laboratory Tests 04/19/24 10:08 04/21/24 06:33 Urinalysis Test 04/20/24 23:55 Urine Color Light-yellow (Yellow) Urine Clarity Clear (Clear) Urine pH 5.5 (5.0-9.0) Urine Specific [place] 1.020 (1.001-1.035) Urine Protein Negative (Negative) Urine Ketones Negative (Negative) Urine Blood Negative /uL (Negative) Urine Nitrite Negative (Negative) Urine Bilirubin Negative (Negative) Urine Urobilinogen Normal mg/dL (Negative) Urine Leukocyte Esterase Negative /uL (Negative) Urine RBC None seen /hpf (0 - 4) Urine WBC <1 /hpf (0 - 5) Urine Squamous Epithelial Cells Few /hpf (<5) Urine Bacteria None seen /hpf (None Seen) Urine Glucose Normal mg/dL (Normal) Microbiology Microbiology Date/Time Source Procedure Growth Status 04/19/24 13:00 Leg Right Gram Stain - Final Resulted 04/19/24 13:00 Wound Culture - Preliminary Streptococcus Group B Resulted Labs and/or images reviewed: Labs reviewed by me, Image(s) reviewed by me Assessment/Plan Assessment/Plan Right lower extremity/mid lower pretibial large ulcer with surrounding cellulitis: CT negative for any osteomyelitis., wound cultures growing group B strep: DC vancomycin start Ancef 2 g IV q.8h; industrial manufacturing technician Dr. Avery is doing debridement today. Peripheral arterial disease ruled out Lupus Morbid obesity Anemia Medical noncompliance or poor compliance Plan discussed with: Patient Date of Service: Apr 21, 2024 Billing Provider: SERGIO PICHARDO MD Common Visit Codes: [id number] INP/OBS CARE(HIGH) SERGIO PICHARDO MD Apr 21, 2024 09:52
[2024-04-21] MEDS ORDERED: LIDOCAINE W/ EPINEPHRINE 2% INJ 20ML VIAL ONE (12:26)
[2024-04-21] MEDS ORDERED: ROPIVACAINE 0.5% (5MG/ML) 20ML AMPULE IJ ONE (12:26)
[2024-04-21] MEDS ORDERED: ceFAZolin 2 GM/D5W100ml 100 ML IV ONE (12:29)
[2024-04-21] MEDS ORDERED: DexAMETHasone SOD PHOS 10MG/1ML VIAL INJ ONE (12:36)
[2024-04-21] MEDS ORDERED: fentaNYL CITRATE 100 MCG/2 ML VL ONE (12:36)
[2024-04-21] MEDS ORDERED: MEPERIDINE HCL (25 MG/ML) 1ML VIAL ONE (12:36)
[2024-04-21] MEDS ORDERED: PROPOFOL 10 MG/ML 20 ML IV ONE (12:36)
[2024-04-21] MEDS ORDERED: MIDAZOLAM HCL 2MG/2ML 2ml VIAL (1mg/ml) ONE (12:36)
[2024-04-21] MEDS: BUPIVACAINE HCL 50 ML ONE (12:56)
[2024-04-21] MEDS: VANCOMYCIN HCL 1000 MG VL ONE (13:08)
--- NOTE | 2024-04-21 13:17 | DVHPN2 ---
Subjective The patient is a 38-year-old female with past medical history of lupus and chronic nonhealing wound presented to [facility] ED for evaluation of right lower extremity open wound. Patient reports she has had a right lower extremity leg wound for the past 5 years that has never healed, has home health nurse following treatment. Patient was seen and evaluated in the ED, laboratory data shows WBC 7.1, hemoglobin 11.4, hematocrit 34.6, platelets 265, sodium 142, potassium 3.6, BUN 15, creatinine 0.91, GFR 84, glucose 78, calcium 10.1, blood pressure 146/86, heart rate 77, temperature 98.3 F, O2 saturation 99% on room air. CT of the right lower extremity revealing superficial soft tissue ulceration along the distal malin, no acute osseous abnormality. Patient was started on IV antibiotic regimen vancomycin, please see medication orders section in the computer. On my assessment, patient denies chest pain, no headache, no dizziness, no diaphoresis, no shortness of breath, no nausea, no vomiting, no fever, no chills. Patient was admitted for further evaluation and medical management. Reviewed: Care Plan, H&P, Labs, Medications, Previous Orders, Radiology Changes from previous H/P or p: No Changes Objective Vitals Vital Signs Date Time Temp Pulse Resp B/P (MAP) Pulse Ox O2 Delivery O2 Flow Rate FiO2 04/21/24 12:36 98.4 78 18 132/62 (85) 100 98.4 04/20/24 20:00 Room Air* 0 21 Intake/Output Intake and Output 04/21/24 07:00 Intake Total 1450 ml Output Total 300 ml Balance 1150 ml Intake Oral 1200 ml IV Total 250 ml Output Urine Total 300 ml # Voids 2 Exam DERMATOLOGIC EXAM: - Skin is dry and cool to the touch dry bilaterally. - Nails 1-5 of the bilateral foot are thickened, discolored, dystrophic, and tender to palpate with subungual debris - Hair loss noted to bilateral feet Wound #1: Location: Right anterior leg Measurements: Length 5 cm x width 4 cm x depth 1 cm. Wound margins: Hyperkeratotic. Wound base: Full thickness. General Appearance: Fibrotic Probes to Bone: No Purulent drainage: No Serous drainage: No Erythema: Periwound VASCULAR EXAM: - DP and PT pulses are palpable bilaterally. 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 - Feet are cool to touch compared to lower legs bilaterally. NEUROLOGIC EXAM: - Normal light touch sensation to the superficial peroneal, deep peroneal, sural, saphenous, and tibial nerve branches. - Protective sensation is diminished as tested with a 5.07 10g [place]ien bilaterally. MUSCULOSKELETAL EXAM: - No gross deformities - Muscle strength is 5/5 and active motion is pain-free and symmetrical bilaterally - No pain or crepitation with passive range of motion bilaterally to all major pedal joints General Appearance: Alert, Oriented X3, Cooperative, No acute distress HEENT: Atraumatic Lungs: Clear to auscultation Cardiovascular: Regular rate Extremities: Other (Right mid lower pretibial area large ulcerations very sensitive to touch/tender with surrounding erythema and warmth) Medications Current Medications Medications Dose Ordered Sig/Jose Route Start Time Stop Time Status Last Admin Dose Admin Sodium Chloride 10 ml Q8HR IV 04/19/24 06:00 04/21/24 05:47 10 ML Acetaminophen/ Hydrocodone Bitart 1 tab Q4HP PRN PO 04/18/24 23:15 04/20/24 15:05 1 TAB Ondansetron HCl 4 mg Q4HP PRN IV 04/18/24 23:15 04/19/24 01:08 4 MG Docusate Sodium 100 mg BIDPRN PRN PO 04/18/24 23:15 04/20/24 09:44 100 MG Enoxaparin Sodium 40 mg DAILY SC 04/19/24 10:00 Acetaminophen 650 mg Q6HP PRN PO 04/18/24 23:15 Morphine Sulfate 2 mg Q4HPRN PRN IV 04/18/24 23:15 04/21/24 05:51 2 MG Nitroglycerin 0.4 mg Q5MINP PRN SL 04/18/24 23:15 Morphine Sulfate 2 mg Q30M PRN IV 04/18/24 23:15 Zinc Sulfate 220 mg DAILY PO 04/19/24 10:00 04/20/24 09:43 220 MG Ascorbic Acid 500 mg BID PO 04/19/24 10:00 04/20/24 22:52 500 MG Multivitamins 1 tab DAILY PO 04/19/24 10:00 04/20/24 09:43 1 TAB Cefazolin Sodium/ Dextrose 50 ml @ 50 mls/hr Q8HR IV 04/21/24 14:00 Laboratory Results Laboratory Tests 04/19/24 10:08 04/21/24 06:33 Urinalysis Test 04/20/24 23:55 Urine Color Light-yellow (Yellow) Urine Clarity Clear (Clear) Urine pH 5.5 (5.0-9.0) Urine Specific [place] 1.020 (1.001-1.035) Urine Protein Negative (Negative) Urine Ketones Negative (Negative) Urine Blood Negative /uL (Negative) Urine Nitrite Negative (Negative) Urine Bilirubin Negative (Negative) Urine Urobilinogen Normal mg/dL (Negative) Urine Leukocyte Esterase Negative /uL (Negative) Urine RBC None seen /hpf (0 - 4) Urine WBC <1 /hpf (0 - 5) Urine Squamous Epithelial Cells Few /hpf (<5) Urine Bacteria None seen /hpf (None Seen) Urine Glucose Normal mg/dL (Normal) Microbiology Microbiology Date/Time Source Procedure Growth Status 04/19/24 13:00 Leg Right Gram Stain - Final Resulted 04/19/24 13:00 Wound Culture - Preliminary Streptococcus Group B Resulted Assessment/Plan Assessment/Plan ASSESSMENT: Patient is a 38 year old who was seen in clinic for right leg ulcer PLAN: - The patients chart was reviewed, clinical findings were discussed with the patient, the etiologies of the conditions were discussed in detail, and a treatment plan was agreed to at this time, with both oral and written instructions provided. - reviewed CT which had no osteomyelitis or deeper infection - recommend that we take her to the OR for debridement - we will plan for surgical debridement today at noon - patient to be NPO since midnight - we will obtain deep cultures in the OR All questions were answered and concerns addressed to the patient's satisfaction. The patient was given the phone number to the clinic and was told how to make contact with the clinic should any concerns or questions arise. Patient understands that if any questions or concerns arise prior to the next appointment, we should be contacted immediately. FOLLOW-UP: Continue to follow while inpatient Plan discussed with: Patient My Orders Orders - ELBA ESTRADA DPM Procedure Category Date Status Time Anaerobic Culture BESS 04/21/24 Logged 13:03 Routine Bacterial BESS 04/21/24 Logged Culture 13:03 Gram Stain BESS 04/21/24 Logged 13:03 Problem List: (1) Open leg wound (2) Generalized weakness (3) History of systemic lupus erythematosus Date of Service: Apr 21, 2024 Billing Provider: ELBA ESTRADA DPM Common Visit Codes: [id number] INP/OBS CARE(MOD) ELBA ESTRADA DPM Apr 21, 2024 13:17
--- NOTE | 2024-04-21 13:24 | DVHOP2 ---
Operative Report - 2 Report Details Date: 04/21/24 Preop Diagnosis: 1. Right leg chronic ulceration 2. Right leg cellulitis 3. Right leg open wound Postop Diagnosis: Same as preop Surgeon: Elba Estrada MD Anesthesiologist: See anesthesia Anesthesia: General Consent: The patient was informed of the risks and benefits of the procedure. These include but are not limited to complications of anesthesia, postoperative infection, incomplete relief of symptoms, recurrence of symptoms, damage to blood vessels, nerves and tendons, deep venous thrombosis, pulmonary embolism a nd possible need for repeat surgery in the future. Complications: None Estimated Blood Loss: Minimal Fluids: See anesthesia Findings: Consistent with the diagnosis Indications for Surgery: Worsening right leg wound Name of Procedure Performed 1. Right leg I&D (78895) Procedure Details Procedure Details: PRE-PROCEDURE INFORMATION: In the pre-op holding area, the extremity to be operated on was clearly marked and the patient verified correct laterality of the marking. The patient was transferred to the OR table and placed in a supine position. A timeout was performed in which identification of the correct patient, procedure, location, and materials was done. The right foot and leg were prepped and draped in normal sterile fashion. DESCRIPTION OF PROCEDURE: Attention was directed to the right leg where area of chronic ulceration. An incision was made over this area and was deepened through blunt dissection. The incision was deepened to the level of abscess fascia and bone. Care was taken to the dissection to avoid any neurovascular and tendinous structures. The incision was deepened to the bone, and the abscess appeared to be purulent fluid consistent with pus. Using a curette, all fibrotic material was then removed After the abscess was drained, the area was irrigated with 3 L normal saline using cysto tubing. Deep cultures were then obtained from the wound. T the wound was then dressed with vancomycin powder and Xeroform. A dry sterile dressing was placed on the surgical extremity. POSTOPERATIVE INFORMATION: The patient tolerated the above noted procedure and anesthesia well and was transferred to the PACU with vital signs stable, and vascular status intact with capillary refill intact to all digits. Patient will return to the floor for continued antibiotics. Cultures were taken. Recommend that we take the patient back on for placement of wound graft. Recommend that she has 6 weeks of IV antibiotics we will graft is taking. Condition Good Disposition Still a Patient ELBA ESTRADA DPM Apr 21, 2024 13:24
[2024-04-21] MEDS: HYDROmorphone HCL 2 MG/ML VL/or syr ONE (13:38)
[2024-04-21] MEDS: KETOROLAC TROMETH 30 MG/ML 1ML VIAL ONE (13:38)
[2024-04-21] MEDS ORDERED: hydrALAZINE HCL 20 MG/ML VL IV PRN (13:45)
[2024-04-21] MEDS ORDERED: ONDANSETRON HCL 4 MG/2 ML VIAL IV ONE (13:45)
[2024-04-21] MEDS ORDERED: KETOROLAC TROMETH 30 MG/ML 1ML VIAL IV ONE (13:45)
[2024-04-21] MEDS ORDERED: MIDAZOLAM HCL 2MG/2ML 2ml VIAL (1mg/ml) IV PRN (13:45)
[2024-04-21] MEDS ORDERED: MORPHINE SULFATE 4 MG/ML SYR/VIAL IV PRN (13:45)
[2024-04-21] MEDS ORDERED: ePHEDrine SULFATE 50 MG/ML AMP IV PRN (13:45)
[2024-04-21] MEDS: HYDROmorphone HCL 2 MG/ML VL/or syr IV ONE ×2 (13:48→14:08)
[2024-04-21] MEDS: ceFAZolin 2 GM/D5W50ml 50 ML IV SCH (13:52)
[2024-04-21] MEDS: HYDROmorphone HCL 2 MG/ML VL/or syr IV PRN (13:58)
[2024-04-21] MEDS: MORPHINE SULFATE INJ 2 MG/ml SYRG IV ONE (14:30)
[2024-04-22 01:00] VITALS: BP 142/73; PULSE 89; RESP 18; TEMP 97.8; O2SAT 98
[2024-04-22 05:00] VITALS: BP 127/64; PULSE 68; RESP 20; TEMP 97.4; O2SAT 97
[2024-04-22 09:00] VITALS: BP 118/69; PULSE 73; RESP 17; TEMP 97.7; O2SAT 97
[2024-04-22] MEDS ORDERED: HYDR-4072 PO (10:01)
[2024-04-22] MEDS ORDERED: AMPI500C9 PO (10:01)
--- NOTE | 2024-04-22 10:04 | DVHPN2 ---
Reviewed: Care Plan, H&P, Labs, Medications, Previous Orders, Radiology Changes from previous H/P or p: No Changes Objective Vitals Vital Signs Date Time Temp Pulse Resp B/P (MAP) Pulse Ox O2 Delivery O2 Flow Rate FiO2 04/22/24 09:00 97.7 73 17 118/69 (85) 97 97.7 04/21/24 20:00 Room Air* 0 21 Intake/Output Intake and Output 04/22/24 07:00 Intake Total 1790 ml Output Total 1200 ml Balance 590 ml Intake Oral 720 ml IV Total 1070 ml Output Urine Total 1200 ml # Voids 2 General Appearance: Alert, Oriented X3, Cooperative, No acute distress HEENT: Atraumatic Lungs: Clear to auscultation Cardiovascular: Regular rate Extremities: Other (Right mid lower pretibial area large ulcerations very sensitive to touch/tender with surrounding erythema and warmth) Medications Current Medications Medications Dose Ordered Sig/Jose Route Start Time Stop Time Status Last Admin Dose Admin Sodium Chloride 10 ml Q8HR IV 04/19/24 06:00 04/22/24 05:47 10 ML Acetaminophen/ Hydrocodone Bitart 1 tab Q4HP PRN PO 04/18/24 23:15 04/20/24 15:05 1 TAB Ondansetron HCl 4 mg Q4HP PRN IV 04/18/24 23:15 04/19/24 01:08 4 MG Docusate Sodium 100 mg BIDPRN PRN PO 04/18/24 23:15 04/20/24 09:44 100 MG Enoxaparin Sodium 40 mg DAILY SC 04/19/24 10:00 Acetaminophen 650 mg Q6HP PRN PO 04/18/24 23:15 Morphine Sulfate 2 mg Q4HPRN PRN IV 04/18/24 23:15 04/22/24 06:44 2 MG Nitroglycerin 0.4 mg Q5MINP PRN SL 04/18/24 23:15 Morphine Sulfate 2 mg Q30M PRN IV 04/18/24 23:15 Zinc Sulfate 220 mg DAILY PO 04/19/24 10:00 04/22/24 09:35 220 MG Ascorbic Acid 500 mg BID PO 04/19/24 10:00 04/22/24 09:35 500 MG Multivitamins 1 tab DAILY PO 04/19/24 10:00 04/22/24 09:36 1 TAB Cefazolin Sodium/ Dextrose 50 ml @ 50 mls/hr Q8HR IV 04/21/24 14:00 04/22/24 05:46 50 MLS/HR Laboratory Results Laboratory Tests 04/19/24 10:08 04/21/24 06:33 Urinalysis Test 04/20/24 23:55 Urine Color Light-yellow (Yellow) Urine Clarity Clear (Clear) Urine pH 5.5 (5.0-9.0) Urine Specific [place] 1.020 (1.001-1.035) Urine Protein Negative (Negative) Urine Ketones Negative (Negative) Urine Blood Negative /uL (Negative) Urine Nitrite Negative (Negative) Urine Bilirubin Negative (Negative) Urine Urobilinogen Normal mg/dL (Negative) Urine Leukocyte Esterase Negative /uL (Negative) Urine RBC None seen /hpf (0 - 4) Urine WBC <1 /hpf (0 - 5) Urine Squamous Epithelial Cells Few /hpf (<5) Urine Bacteria None seen /hpf (None Seen) Urine Glucose Normal mg/dL (Normal) Microbiology Microbiology Date/Time Source Procedure Growth Status 04/19/24 13:00 Leg Right Gram Stain - Final Resulted 04/19/24 13:00 Wound Culture - Preliminary Streptococcus Group B Resulted Labs and/or images reviewed: Labs reviewed by me, Image(s) reviewed by me Assessment/Plan Assessment/Plan Right lower extremity/mid lower pretibial large ulcer with surrounding cellulitis: CT negative for any osteomyelitis., wound cultures growing group B strep: Started on Ancef we will transition to ampicillin status post incision and drainage by Dr. Avery Peripheral arterial disease ruled out Lupus Morbid obesity Anemia Medical noncompliance or poor compliance Plan discussed with: Patient Date of Service: Apr 22, 2024 Billing Provider: SERGIO PICHARDO MD Common Visit Codes: [id number] INP/OBS CARE(HIGH) SERGIO PICHARDO MD Apr 22, 2024 10:04
--- NOTE | 2024-04-22 10:09 | DVHDS2 ---
Discharge Summary Date of Admission Apr 18, 2024 at 23:03 Date of Discharge: Apr 22, 2024 Admitting Diagnosis Chronic Nonhealing right leg wound Wounds: Chronic nonhealing right leg wound Labs/Diagnostic Data: Laboratory Results Test 04/21/24 06:33 04/20/24 23:55 04/20/24 16:06 04/19/24 10:08 White Blood Count 4.6 10^3/uL (4.4-10.8) Red Blood Count 3.79 10^6/uL (4.0-5.20) Hemoglobin 11.4 g/dL (12.2-16.2) Hematocrit 34.5 % (36.0-46.0) Mean Corpuscular Volume 91.1 fL (80.0-100.0) Mean Corpuscular Hemoglobin 30.1 pg (28.0-32.0) Mean Corpuscular Hemoglobin Concent 33.1 g/dL (32.0-36.0) Red Cell Distribution Width 13.7 % (11.8-14.3) Platelet Count 247 10^3/uL (140-450) Mean Platelet Volume 8.3 fL (6.9-10.8) Neutrophils (%) (Auto) 54.3 % (37.0-80.0) Lymphocytes (%) (Auto) 32.6 % (10.0-50.0) Monocytes (%) (Auto) 9.0 % (0.0-12.0) Eosinophils (%) (Auto) 3.8 % (0.0-7.0) Basophils (%) (Auto) 0.3 % (0.0-2.0) Neutrophils # (Auto) 2.5 10 ^3/uL (1.6-8.6) Lymphocytes # (Auto) 1.5 10 ^3/uL (0.4-5.4) Monocytes # (Auto) 0.4 10 ^3/uL (0-1.3) Eosinophils # (Auto) 0.2 10 ^3/uL (0-0.8) Basophils # (Auto) 0 10 ^3/uL (0-0.2) Nucleated Red Blood Cells 0.1 % Creatinine 0.80 mg/dL (0.550-1.02) Glomerular Filtration Rate Calc 98 mL/min (>90) Beta HCG, Quantitative 2.5 mIU/mL (1.5-4.2) Urine Color Light-yellow (Yellow) Urine Clarity Clear (Clear) Urine pH 5.5 (5.0-9.0) Urine Specific [place] 1.020 (1.001-1.035) Urine Protein Negative (Negative) Urine Ketones Negative (Negative) Urine Blood Negative /uL (Negative) Urine Nitrite Negative (Negative) Urine Bilirubin Negative (Negative) Urine Urobilinogen Normal mg/dL (Negative) Urine Leukocyte Esterase Negative /uL (Negative) Urine RBC None seen /hpf (0 - 4) Urine WBC <1 /hpf (0 - 5) Urine Squamous Epithelial Cells Few /hpf (<5) Urine Bacteria None seen /hpf (None Seen) Urine Glucose Normal mg/dL (Normal) Vancomycin Level Trough 16.7 ug/mL (5-10) Erythrocyte Sedimentation Rate 54 mm/hr (0-20) Sodium Level 143 mmol/L (136-145) Potassium Level 3.8 mmol/L (3.5-5.1) Chloride Level 110 mmol/L (98-107) Carbon Dioxide Level 27 mmol/L (20-31) Anion Gap 6 (5-15) Blood Urea Nitrogen 14 mg/dL (9-23) BUN/Creatinine Ratio 15.7 (10.0-20.0) Serum Glucose 92 mg/dL (74-106) Calcium Level 9.7 mg/dL (8.7-10.4) Total Bilirubin 0.2 mg/dL (0.2-1.0) Aspartate Amino Transferase (AST) 16 U/L (13-40) Alanine Aminotransferase (ALT) 14 U/L (7-40) Alkaline Phosphatase 73 U/L (46-116) C-Reactive Protein High Sensitivity 2.58 mg/dL (<1.0) Total Protein 6.9 g/dL (5.7-8.2) Albumin 3.6 g/dL (3.2-4.8) Test 04/18/24 19:47 Prothrombin Time 10.9 sec (9.3-11.8) Prothrombin Time INR 1.03 (0.9-1.15) Lactic Acid Level 0.9 mmol/L (0.4-2.0) Other Laboratory Tests 04/21/24 06:33 04/19/24 10:08 Brief Hx & Hospital Course: 38-year-old female medically noncompliant came in for nonhealing wound right lower extremity. Osteomyelitis ruled out patient had cellulitis treated with the antibiotics wound cultures grew group B started on Ancef transition to ampicillin underwent incision and drainage by podiatric Dr. Avery. Being discharged home on ampicillin and Davy she will follow up with the director of enrollment in 10 days. Home health arranged for wound care Consults/Reason for consult Manager Office Services Dr. Avery Operations or Procedures I and D Condition at Discharge: Fair Final Diagnosis/Problems List Right lower extremity/mid lower pretibial large ulcer with surrounding cellulitis: CT negative for any osteomyelitis., wound cultures growing group B strep: Started on Ancef we will transition to ampicillin status post incision and drainage by Dr. Avery Peripheral arterial disease ruled out Lupus Morbid obesity Anemia Medical noncompliance or poor compliance Discharge Disposition: Home with Health Services Discharge Instruct/Medications Diet: Regular Activity: See Comment Activity comment: Off work for 10 days Follow Up/Referral: Follow up with the primary Dr in one week Follow up with the director of enrollment Dr Avery in 10 days Medications: Ampicillin 500 mg p.o. q.6 hours number 56 Davy Transmitted to the pharmacy 35 (Time taken for discharge summary 35 minutes) Discharge Statement: "Patient was advised to return to the ER or call 911 if any headaches, dizziness, shortness of breath, chest pain, abdominal pain, bleeding, fevers, or worsening of medical condition. Patient was counseled about treatment plan, medications, possible side effects, patientverbalized understanding. All questions were answered to the best of my ability. This discharge took greater then 30 minutes in planning, reviewing documentation, counseling the patient, and discussing with other team members." ASSESSMENT ASSESSMENT Hospital Course Improved Assessment Right lower extremity/mid lower pretibial large ulcer with surrounding cellulitis: CT negative for any osteomyelitis., wound cultures growing group B strep: Started on Ancef we will transition to ampicillin status post incision and drainage by Dr. Avery Peripheral arterial disease ruled out Lupus Morbid obesity Anemia Medical noncompliance or poor compliance Date of Service: Apr 22, 2024 Billing Provider: SERGIO PICHARDO MD Common Visit Codes: 59140-IKH/OBS DISCH DAY >30min SERGIO PICHARDO MD Apr 22, 2024 10:09
[2024-04-22] MEDS: ACETAMINOPHEN 325 MG TAB PO PRN (10:29)
[2024-04-22 13:00] VITALS: BP 124/71; PULSE 78; RESP 18; TEMP 97.7; O2SAT 97
--- NOTE | 2024-04-22 13:29 | DVHPN2 ---
Subjective The patient is a 38-year-old female with past medical history of lupus and chronic nonhealing wound presented to [facility] ED for evaluation of right lower extremity open wound. Patient reports she has had a right lower extremity leg wound for the past 5 years that has never healed, has home health nurse following treatment. Patient was seen and evaluated in the ED, laboratory data shows WBC 7.1, hemoglobin 11.4, hematocrit 34.6, platelets 265, sodium 142, potassium 3.6, BUN 15, creatinine 0.91, GFR 84, glucose 78, calcium 10.1, blood pressure 146/86, heart rate 77, temperature 98.3 F, O2 saturation 99% on room air. CT of the right lower extremity revealing superficial soft tissue ulceration along the distal malin, no acute osseous abnormality. Patient was started on IV antibiotic regimen vancomycin, please see medication orders section in the computer. On my assessment, patient denies chest pain, no headache, no dizziness, no diaphoresis, no shortness of breath, no nausea, no vomiting, no fever, no chills. Patient was admitted for further evaluation and medical management. Reviewed: Care Plan, H&P, Labs, Medications, Previous Orders, Radiology Changes from previous H/P or p: No Changes Objective Vitals Vital Signs Date Time Temp Pulse Resp B/P (MAP) Pulse Ox O2 Delivery O2 Flow Rate FiO2 04/22/24 09:00 97.7 73 17 118/69 (85) 97 97.7 04/21/24 20:00 Room Air* 0 21 Intake/Output Intake and Output 04/22/24 07:00 Intake Total 1790 ml Output Total 1200 ml Balance 590 ml Intake Oral 720 ml IV Total 1070 ml Output Urine Total 1200 ml # Voids 2 Exam DERMATOLOGIC EXAM: - Skin is dry and cool to the touch dry bilaterally. - Nails 1-5 of the bilateral foot are thickened, discolored, dystrophic, and tender to palpate with subungual debris - Hair loss noted to bilateral feet Wound #1: Location: Right anterior leg Measurements: Length 5 cm x width 4 cm x depth 1 cm. Wound margins: Hyperkeratotic. Wound base: Full thickness. General Appearance: Fibrotic Probes to Bone: No Purulent drainage: No Serous drainage: No Erythema: Periwound VASCULAR EXAM: - DP and PT pulses are palpable bilaterally. - CHURN DRILLER is brisk to all digits. - Feet are cool to touch compared to lower legs bilaterally. NEUROLOGIC EXAM: - Normal light touch sensation to the superficial peroneal, deep peroneal, sural, saphenous, and tibial nerve branches. - Protective sensation is diminished as tested with a 5.07 10g Bayard-Tien bilaterally. MUSCULOSKELETAL EXAM: - No gross deformities - Muscle strength is 5/5 and active motion is pain-free and symmetrical bilaterally - No pain or crepitation with passive range of motion bilaterally to all major pedal joints General Appearance: Alert, Oriented X3, Cooperative, No acute distress HEENT: Atraumatic Lungs: Clear to auscultation Cardiovascular: Regular rate Extremities: Other (Right mid lower pretibial area large ulcerations very sensitive to touch/tender with surrounding erythema and warmth) Medications Current Medications Medications Dose Ordered Sig/Jose Route Start Time Stop Time Status Last Admin Dose Admin Sodium Chloride 10 ml Q8HR IV 04/19/24 06:00 04/22/24 05:47 10 ML Acetaminophen/ Hydrocodone Bitart 1 tab Q4HP PRN PO 04/18/24 23:15 04/20/24 15:05 1 TAB Ondansetron HCl 4 mg Q4HP PRN IV 04/18/24 23:15 04/19/24 01:08 4 MG Docusate Sodium 100 mg BIDPRN PRN PO 04/18/24 23:15 04/20/24 09:44 100 MG Enoxaparin Sodium 40 mg DAILY SC 04/19/24 10:00 Acetaminophen 650 mg Q6HP PRN PO 04/18/24 23:15 04/22/24 10:29 650 MG Morphine Sulfate 2 mg Q4HPRN PRN IV 04/18/24 23:15 04/22/24 06:44 2 MG Nitroglycerin 0.4 mg Q5MINP PRN SL 04/18/24 23:15 Morphine Sulfate 2 mg Q30M PRN IV 04/18/24 23:15 Zinc Sulfate 220 mg DAILY PO 04/19/24 10:00 04/22/24 09:35 220 MG Ascorbic Acid 500 mg BID PO 04/19/24 10:00 04/22/24 09:35 500 MG Multivitamins 1 tab DAILY PO 04/19/24 10:00 04/22/24 09:36 1 TAB Cefazolin Sodium/ Dextrose 50 ml @ 50 mls/hr Q8HR IV 04/21/24 14:00 04/22/24 05:46 50 MLS/HR Laboratory Results Laboratory Tests 04/19/24 10:08 04/21/24 06:33 Urinalysis Test 04/20/24 23:55 Urine Color Light-yellow (Yellow) Urine Clarity Clear (Clear) Urine pH 5.5 (5.0-9.0) Urine Specific [place] 1.020 (1.001-1.035) Urine Protein Negative (Negative) Urine Ketones Negative (Negative) Urine Blood Negative /uL (Negative) Urine Nitrite Negative (Negative) Urine Bilirubin Negative (Negative) Urine Urobilinogen Normal mg/dL (Negative) Urine Leukocyte Esterase Negative /uL (Negative) Urine RBC None seen /hpf (0 - 4) Urine WBC <1 /hpf (0 - 5) Urine Squamous Epithelial Cells Few /hpf (<5) Urine Bacteria None seen /hpf (None Seen) Urine Glucose Normal mg/dL (Normal) Microbiology Microbiology Date/Time Source Procedure Growth Status 04/21/24 14:37 Leg Right Gram Stain - Final Resulted 04/21/24 14:37 Leg Right Anaerobic Culture - Preliminary Resulted 04/21/24 14:37 Leg Right Aerobic Culture Pending Resulted Assessment/Plan Assessment/Plan ASSESSMENT: Patient is a 38 year old who was seen in clinic for right leg ulcer, 1 day s/p right leg I&D PLAN: - The patients chart was reviewed, clinical findings were discussed with the patient, the etiologies of the conditions were discussed in detail, and a treatment plan was agreed to at this time, with both oral and written instructions provided. - discussed with the patient that surgery went well - recommend using dermal grafting in the future - patient will be discharged home on antibiotics - patient will follow up with me after discharge All questions were answered and concerns addressed to the patient's satisfaction. The patient was given the phone number to the clinic and was told how to make contact with the clinic should any concerns or questions arise. Patient understands that if any questions or concerns arise prior to the next appointment, we should be contacted immediately. FOLLOW-UP: Continue to follow while inpatient Plan discussed with: Patient My Orders Orders - ELBA ESTRADA DPM Procedure Category Date Status Time Cardiac DIET 04/21/24 Transmitted Diet-2gna,Lofat,Lochol Dinner Problem List: (1) Open leg wound (2) Generalized weakness (3) History of systemic lupus erythematosus Date of Service: Apr 22, 2024 Billing Provider: ELBA ESTRADA DPM Common Visit Codes: 70391-[id number] INP/OBS CARE(MOD) ELBA ESTRADA DPM Apr 22, 2024 13:29
[2024-04-22 14:58] VITALS: TEMP 36.5
[2024-04-22 17:00] VITALS: BP 115/62; PULSE 74; RESP 18; TEMP 97.9; O2SAT 98
== END 2024-04-22 16:47 | disposition home health service (06) | DRG 383 ==
LOC: EDBD 19:08 → ER 19:08 → EDUNIT# 19:08 → OVERFLOW 23:03 → CENTRAL 04-19 01:35
PROVIDERS: ADMIT Family Medicine; ATTEND Family Medicine
PROC: 0Y990ZZ Drainage of Right Lower Extremity, Open Approach (ICD-10-PCS; principal; 2024-04-21 12:40)
DX: L03.115 Cellulitis of right lower limb (principal); E11.622 Type 2 diabetes mellitus with other skin ulcer; L97.919 Non-pressure chronic ulcer of unspecified part of right lower leg with unspecified severity; M32.9 Systemic lupus erythematosus, unspecified; D64.9 Anemia, unspecified; B95.1 Streptococcus, group B, as the cause of diseases classified elsewhere; E66.01 Morbid (severe) obesity due to excess calories; Z91.199 Patient's noncompliance with other medical treatment and regimen due to unspecified reason; Z83.3 Family history of diabetes mellitus; Z68.38 Body mass index [BMI] 38.0-38.9, adult
CPT/HCPCS: 36415; 73700; 80048; 80053; 80202; 81001; 82565; 83605; 84702; 85025; 85610; 85652; 86141; 87070; 87075; 87205; 93926; G0378; J1100; J1885; J2250; J2405; J2704; J3490

== ENCOUNTER 2024-06-21 21:14 | Inpatient (IN) | payer MEDICAID ==
[~2024-06-21] VITALS: Ht 175.3 cm; Wt 115.2 kg
[~2024-06-21 21:14] MED LIST changes: +AMPI500C9 PO; +HYDR-4072 PO
[2024-06-21 22:03] LABS: Basophils # (auto) 0 10 ^3/uL (0-0.2); Basophils % (auto) 0.4 % (0.0-2.0); Eosinophils # (auto) 0.2 10 ^3/uL (0-0.8); Eosinophils % (auto) 2.4 % (0.0-7.0); Hematocrit 36.4 % (36.0-46.0); Hemoglobin 12.4 g/dL (12.2-16.2); Lymphocytes # (auto) 2.1 10 ^3/uL (0.4-5.4); Lymphocytes % (auto) 23.9 % (10.0-50.0); Mean Corpuscular Hemoglobin 29.5 pg (28.0-32.0); Mean Corpuscular Volume 86.7 fL (80.0-100.0); Monocytes # (auto) 0.8 10 ^3/uL (0-1.3); Monocytes % (auto) 9.5 % (0.0-12.0); Neutrophils # (auto) 5.7 10 ^3/uL (1.6-8.6); Neutrophils % (auto) 63.8 % (37.0-80.0); Nucleated Red Blood Cells % 0.1 %; Platelet Count (auto) 234 10^3/uL (140-450); Red Cell Distribution Width 14.6 % (11.8-14.3); White Blood Cell 8.9 10^3/uL (4.4-10.8)
[2024-06-21 22:15] LABS: Alanine Aminotransferase 14 U/L (7-40); Albumin 4.3 g/dL (3.2-4.8); Alkaline Phosphatase 92 U/L (46-116); Anion Gap 6 (5-15); Aspartate Aminotransferase 19 U/L (13-40); BUN/Creatinine Ratio 18.8 (10.0-20.0); Blood Urea Nitrogen 16 mg/dL (9-23); Calcium 9.9 mg/dL (8.7-10.4); Carbon Dioxide 23 mmol/L (20-31); Glucose 106 mg/dL (74-106); Potassium 3.9 mmol/L (3.5-5.1); Sodium 139 mmol/L (136-145)
[2024-06-21 22:16] LABS: Bilirubin, Total 0.3 mg/dL (0.2-1.0); Chloride 110 mmol/L (98-107); Total Protein 8.5 g/dL (5.7-8.2)
--- NOTE | 2024-06-21 22:51 | DVH ---
INDICATION: Right lower extremity CT COMPARISON: CT LOWER EXTREMITY NON JOINT RIGH on DOS: 04/18/24 TECHNIQUE: CT of the right was performed without contrast. Volume transverse images were obtained and reconstructed in multiple planes using bone and soft tissue algorithms. CONTRAST: None Radiation Dose Information: CT Dose: CTDI volume is 7.94 mGy. Dose-length product is 569.1 mGy*cm FINDINGS: The alignment is normal. The joint spaces are normal. There is no fracture, dislocation, or focal osseous lesions. Loss of soft tissues from 9-3 o'clock anteriorly to the right tibia. There is no epidermis or subcut aneous fat. All all soft tissues radiographically have been removed to the muscle layer. IMPRESSION: 1. Loss of epidermis and subcutaneous fat to the muscle mass in the area of wound in the mid tibia an d fibula on the right. 2. No acute fractures 3. If osteomyelitis is of clinical concern recommend MRI. 4. 5. All CT scans at this medical facility are performed using dose modulation techniques as appropriat e to a performed exam including the following: Automated exposure control was utilized; adjustment of the MA and/or KV according to patient size; and use of iterative reconstruction technique.
[2024-06-21 23:22] VITALS: PULSE 109; RESP 20; O2SAT 94
[2024-06-21] MEDS: MORPHINE SULFATE INJ 2 MG/ml SYRG IV ONE (23:50)
[2024-06-21] MEDS: VANCOMYCIN 1GM/250ML KIT 250 ML IV ONE (23:53)
--- NOTE | 2024-06-22 00:25 | ED.PDOC ---
History of Present Illness HPI Comments 38 y/o F presents with c/o right, lower leg wound and pain, today. 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 She reports on managing symptoms through outpatient care and [place] pain medications, with endorsement on running out of the latter, recently, a week ago and being unable to obtain a refill through her pain management office. She also states on being unable to take any medications she was prescribed for an upcoming skin graft procedure, due to being unable to manage and tolerate pain. She denies having any fever, chills, nausea, vomiting, wound discharge, or other associated symptoms or modifiers at this time. Chief Complaint: Wound Check Time Seen by MD: 21:30 Primary Care Provider: ALEXA King Notes: Nurses Notes, Medications, Allergies Allergies: Coded Allergies: NO KNOWN ALLERGIES (Unverified , 09/30/10) Home Meds Active Scripts Hydrocodone-Acetaminophen (Hydrocodone/Acetaminophen 10-325 mg) 1 Tab Tab, 1 TAB PO QID PRN, #30 TAB Prov:SERGIO PICHARDO MD 04/22/24 Ampicillin (Ampicillin) 500 Mg Cap, 1 CAP PO QID, #56 CAP Prov:SERGIO PICHARDO MD 04/22/24 Reported Medications Prednisone (Sterapred 12 Day) 5 Mg Matheus 09/30/10 Information Source: Patient Mode of Arrival: Ambulatory Severity: Moderate Timing: Days Duration: Since onset Prehospital treatment: None Review of Systems: REVIEW OF SYSTEMS: No fever, no chills, HEENT: No neck pain, no blurred vision Cardiac: No chest pain. No palpitations. Lungs: No shortness of breath, GI: No abdominal pain, no vomiting Musculoskeletal: Right leg pain. no joint pain , no back pain Skin: Right lower leg wound. No rash Neuro: No headache, no dizziness, no syncope Vital Signs Vital Signs Date Time Temp Pulse Resp B/P (MAP) Pulse Ox O2 Delivery O2 Flow Rate FiO2 06/22/24 00:20 102 22 122/68 06/21/24 23:22 94 Room Air* 0 21 06/21/24 23:20 99.5 99.5 Physical Exam General: Awake, alert and oriented. No acute distress. Skin: Skin in warm, dry and intact without rashes or lesions. HEENT: The head is normocephalic and atraumatic. Conjunctivae are clear without exudates or hemorrhage. Sclera is non-icteric. Neck: Normal range of motion. No JVD. Cardiac: Regular rate Respiratory: No signs of respiratory distress. No Stridor. Extremities: Extensive ulceration of her right anterior calf, with surround erythema, warmth, and edema. Upper and lower extremities are otherwise atraumatic in appearance without tenderness or deformity. Neurological: The patient is awake, alert and oriented to person, place, and time with normal speech. Speech is clear. There is no facial asymmetry. Psychiatric: Appropriate mood and affect. Good judgement and insight. No visual or auditory hallucinations. No suicidal or homicidal ideation. Past Medical History PAST MEDICAL HISTORY: DM Past Medical History (Other): Lupus, stage IV chronic wound to right lower extremity Surgical History: Denies all surgeries DIRECTOR OF ENROLLMENT History: No Pertinent DIRECTOR OF ENROLLMENT History Family History Family History: Reviewed,noncontributory to illness, No family hx of Cancer, No family hx of DM, No family hx of Heart liza, No family hx of HTN, No family hx ofKidney liza, No family hx of Liver liza, No family hx of Lung liza, No family hx of Stroke Social History Smoker: Non-Smoker Alcohol: Denies ETOH Use Drugs: Denies Drug Use Lives In: Home Was a procedure done? Was a procedure done?: No Differential Dx Considerations may include: Cellulitis, dermatitis, chronic wound, diabetic wound X-Ray, Labs, Meds, VS Vital Signs Date Time Temp Pulse Resp B/P (MAP) Pulse Ox O2 Delivery O2 Flow Rate FiO2 06/22/24 00:20 102 22 122/68 06/21/24 23:50 104 20 122/80 06/21/24 23:22 109 20 94 Room Air* 0 21 06/21/24 23:20 99.5 110 20 122/80 (94) 95 99.5 06/21/24 21:25 99.4 119 18 123/79 (94) 100 Lab Test 06/21/24 21:45 Range/Units White Blood Count 8.9 4.4-10.8 10^3/uL Red Blood Count 4.20 4.0-5.20 10^6/uL Hemoglobin 12.4 12.2-16.2 g/dL Hematocrit 36.4 36.0-46.0 % Mean Corpuscular Volume 86.7 80.0-100.0 fL Mean Corpuscular Hemoglobin 29.5 28.0-32.0 pg Mean Corpuscular Hemoglobin Concent 34.0 32.0-36.0 g/dL Red Cell Distribution Width 14.6 H 11.8-14.3 % Platelet Count 234 140-450 10^3/uL Mean Platelet Volume 8.8 6.9-10.8 fL Neutrophils (%) (Auto) 63.8 37.0-80.0 % Lymphocytes (%) (Auto) 23.9 10.0-50.0 % Monocytes (%) (Auto) 9.5 0.0-12.0 % Eosinophils (%) (Auto) 2.4 0.0-7.0 % Basophils (%) (Auto) 0.4 0.0-2.0 % Neutrophils # (Auto) 5.7 1.6-8.6 10 ^3/uL Lymphocytes # (Auto) 2.1 0.4-5.4 10 ^3/uL Monocytes # (Auto) 0.8 0-1.3 10 ^3/uL Eosinophils # (Auto) 0.2 0-0.8 10 ^3/uL Basophils # (Auto) 0 0-0.2 10 ^3/uL Nucleated Red Blood Cells 0.1 % Sodium Level 139 136-145 mmol/L Potassium Level 3.9 3.5-5.1 mmol/L Chloride Level 110 H 98-107 mmol/L Carbon Dioxide Level 23 20-31 mmol/L Anion Gap 6 5-15 Blood Urea Nitrogen 16 9-23 mg/dL Creatinine 0.85 0.550-1.02 mg/dL Glomerular Filtration Rate Calc 91 >90 mL/min BUN/Creatinine Ratio 18.8 10.0-20.0 Serum Glucose 106 74-106 mg/dL Lactic Acid Level 0.7 0.4-2.0 mmol/L Calcium Level 9.9 8.7-10.4 mg/dL Total Bilirubin 0.3 0.2-1.0 mg/dL Aspartate Amino Transferase (AST) 19 13-40 U/L Alanine Aminotransferase (ALT) 14 7-40 U/L Alkaline Phosphatase 92 46-116 U/L Total Protein 8.5 H 5.7-8.2 g/dL Albumin 4.3 3.2-4.8 g/dL Current Medications Medications (Trade) Dose Ordered Sig/Jose Route Start Time Stop Time Status Last Admin Vancomycin HCl 250 ml @ 250 mls/hr ONCE ONCE IV 06/21/24 23:15 06/22/24 00:14 DC 06/21/24 23:53 Piperacillin Sod/ Tazobactam Sod 100 ml @ 100 mls/hr ONCE ONCE IV 06/21/24 23:15 06/22/24 00:14 DC 06/22/24 01:10 Morphine Sulfate 4 mg ONCE ONCE IV 06/21/24 23:15 06/21/24 23:16 DC 06/21/24 23:50 Time of 1ST Reevaluation: 21:30 Reevaluation 1ST: Unchanged Patient Education/Counseling: Diagnosis, Treatment, Other (Need for admission) Family Education/Counseling: No Family Present Departure 1 Departure Time of Disposition: 00:26 Impression: Primary Impression: Chronic wound Additional Impressions: Cellulitis Intractable pain Disposition: ADMITTED INPATIENT Condition: Stable Comments 38-year-old female with chronic right lower extremity, nonhealing wound for the past 6 years. Patient presents to the emergency department today with uncontrollable pain, she also has run out of her pain medication at home. Patient evaluated and found to have acute cellulitis. Patient has upcoming skin graft procedure for treatment of chronic nonhealing wound scheduled. Antibiotics and pain control initiated in the emergency department. Patient admitted for further treatment, evaluation, monitoring. Extensive evaluation was performed in attempt to identify or rule out: (See differential diagnosis section) The following tests were ordered, and results were reviewed by me: (See diagnostic results section) The following test were independently interpreted by me: N/A I reviewed and agreed with the following test results read by other providers: N/A I reviewed the following notes from the pt's past medical encounters: May 07 encounter for open leg wound Additional information was gathered from interviewing the following independent historians: N/A Discussion of management or test interpretation with external physician/other qualified health care giver: N/A Addressed one or more chronic illnesses with severe exacerbation, progression, or side effects of treatment: Cellulitis, chronic open wound Decision regarding hospitalization or escalation of hospital level of care: Risk and benefits of admission for further treatment of patient's condition was considered. Due to patient's current clinical condition, high risk of decline and poor outcome if discharged and need for further inpatient management and monitoring, patient will be admitted to the hospital. Drug therapy requiring intensive monitoring for toxicity: N/A Parenteral controlled substances: IV morphine Decision regarding elective major surgery with identified patient or procedure risk factors: N/A Decision regarding emergency major surgery: N/A Decision not to resuscitate or to de-escalate care because of poor prognosis: N/A Diagnosis or treatment significantly limited by social determinants of health: N/A Critical Care Note Critical Care Time?: No Stability Stability form required: No Heart Score Heart Score: Heart Score Response (Comments) Value History N/A 0 EKG N/A 0 Age N/A 0 Risk Factors N/A 0 Troponin N/A 0 Total 0 I personally scribed for CARLOS BARNETT MD ([email or web address]) on 06/22/24 at 00:25. Electronically submitted by Akin Sharpe ([email or web address]). CARLOS BARNETT MD Jun 22, 2024 00:25
[2024-06-22] MEDS: PIPERACILLIN-TAZOB 3.375GM 100 ML IV ONE (01:10)
[2024-06-22 08:10] VITALS: PULSE 96; RESP 20; O2SAT 94
[2024-06-22] MEDS ORDERED: ACETAMINOPHEN 325 MG TAB PO PRN (08:45)
[2024-06-22] MEDS ORDERED: ONDANSETRON HCL 4 MG/2 ML VIAL IV PRN (08:45)
[2024-06-22] MEDS ORDERED: VANCOMYCIN PER PHARMACY 0 MG IV SCH (08:45)
[2024-06-22] MEDS ORDERED: DOCUSATE SOD 100 MG CAP PO PRN (08:45)
--- NOTE | 2024-06-22 08:49 | DVHHP2 ---
History of Present Illness Reason for Visit: right leg wound History of Present Illness Precious Mejía is a 48-isqm-uvil-old female with past medical history of Lupus who is taking chronic steroids, comes in with complaints of pain to non- healing wound to her right lower extremity. Patient states the wound began about 6 years ago from a dog bite, it started out small and has increased over the years. She has home health that comes and cleans the wound and changes the dressing. There is yellow sluff covering the entire wound, and she states it is yellow due to the cream home health placed on it. She also states that she is scheduled for a skin graft on the , but she ran out of her pain medicine a few days ago and came in because she can not stand the pain. Rheumatologic: Other (Lupus) Past Surgical History: Other (Wound debridement) Smoke: No ALCOHOL: none Drugs: None Lives: with Family Domestic Violence: Neg Review of Systems Constitutional: No: Fever, Chills, Sweats, Weakness, Malaise, Other Eyes: No: Pain, Vision change, Conjunctivae inflammation, Eyelid inflammation, Other, Redness ENT: No: Ear pain, Ear discharge, Nose pain, Nose discharge, Nose congestion, Mouth pain, Mouth swelling, Throat pain, Throat swelling, Other Respiratory: No: Cough, Dry, Shortness of breath, SOB with excertion, Wheezing, Hemoptysis, Pleuritic Pain, Sputum, Wheezing, Other Cardiovascular: No: Chest Pain, Palpitations, Orthopnea, Paroxysmal Noc. D yspnea, Edema, Lt Headedness, Other Gastrointestinal: No: Nausea, Vomiting, Abdominal Pain, Diarrhea, Constipation, Melena, Hematochezia, Other Genitourinary: No Dysuria, No Frequency, No Incontinence, No Hematuria, No Retention, No Other Musculoskeletal: leg pain (right lower extremity pain); No: other, neck pain, s houlder pain, arm pain, back pain, hand pain, foot pain Skin: Other (right leg wound, pain); No: Rash, Lesions, Jaundice, Bruising Neurological: No: Weakness, Numbness, Incoordination, Change in speech, Confusion, Seizures, Other Allergies: Coded Allergies: NO KNOWN ALLERGIES (Unverified , 09/30/10) Exam Vital Signs Vital Signs Date Time Temp Pulse Resp B/P (MAP) Pulse Ox O2 Delivery O2 Flow Rate FiO2 06/22/24 00:20 102 22 122/68 06/21/24 23:22 94 Room Air* 0 21 06/21/24 23:20 99.5 99.5 General Appearance: Alert, Oriented X3 HEENT: Atraumatic, PERRLA Respiratory: Clear to auscultation, Normal air movement Cardiovascular: Regular rate, Normal S1, Normal S2 Abdominal: Normal bowel sounds, Soft, No tenderness, No hepatospenomegaly Extremities: No clubbing, No cyanosis, No edema, Normal pulses, No tenderness/swelling (Pain and redness to open right lower ectremity wound) Skin: No rashes, No significant lesion (right lower extremity wound) Neuro: Normal gait, Normal speech, Strength at 5/5 X4 ext, Normal tone Psych/Mental Status: Mental status NL, Mood NL Labs/Xrays Labs Test 06/21/24 21:45 Range/Units White Blood Count 8.9 4.4-10.8 10^3/uL Red Blood Count 4.20 4.0-5.20 10^6/uL Hemoglobin 12.4 12.2-16.2 g/dL Hematocrit 36.4 36.0-46.0 % Mean Corpuscular Volume 86.7 80.0-100.0 fL Mean Corpuscular Hemoglobin 29.5 28.0-32.0 pg Mean Corpuscular Hemoglobin Concent 34.0 32.0-36.0 g/dL Red Cell Distribution Width 14.6 H 11.8-14.3 % Platelet Count 234 140-450 10^3/uL Mean Platelet Volume 8.8 6.9-10.8 fL Neutrophils (%) (Auto) 63.8 37.0-80.0 % Lymphocytes (%) (Auto) 23.9 10.0-50.0 % Monocytes (%) (Auto) 9.5 0.0-12.0 % Eosinophils (%) (Auto) 2.4 0.0-7.0 % Basophils (%) (Auto) 0.4 0.0-2.0 % Neutrophils # (Auto) 5.7 1.6-8.6 10 ^3/uL Lymphocytes # (Auto) 2.1 0.4-5.4 10 ^3/uL Monocytes # (Auto) 0.8 0-1.3 10 ^3/uL Eosinophils # (Auto) 0.2 0-0.8 10 ^3/uL Basophils # (Auto) 0 0-0.2 10 ^3/uL Nucleated Red Blood Cells 0.1 % Sodium Level 139 136-145 mmol/L Potassium Level 3.9 3.5-5.1 mmol/L Chloride Level 110 H 98-107 mmol/L Carbon Dioxide Level 23 20-31 mmol/L Anion Gap 6 5-15 Blood Urea Nitrogen 16 9-23 mg/dL Creatinine 0.85 0.550-1.02 mg/dL Glomerular Filtration Rate Calc 91 >90 mL/min BUN/Creatinine Ratio 18.8 10.0-20.0 Serum Glucose 106 74-106 mg/dL Lactic Acid Level 0.7 0.4-2.0 mmol/L Calcium Level 9.9 8.7-10.4 mg/dL Total Bilirubin 0.3 0.2-1.0 mg/dL Aspartate Amino Transferase (AST) 19 13-40 U/L Alanine Aminotransferase (ALT) 14 7-40 U/L Alkaline Phosphatase 92 46-116 U/L Total Protein 8.5 H 5.7-8.2 g/dL Albumin 4.3 3.2-4.8 g/dL INDICATION: Right lower extremity CT FINDINGS: The alignment is normal. The joint spaces are normal. There is no fracture, dislocation, or focal osseous lesions. Loss of soft tissues from 9-3 o'clock anteriorly to the right tibia. There is no epidermis or subcutaneous fat. All all soft tissues radiographically have been removed to the muscle layer. IMPRESSION: 1. Loss of epidermis and subcutaneous fat to the muscle mass in the area of wound in the mid tibia and fibula on the right. 2. No acute fractures 3. If osteomyelitis is of clinical concern recommend MRI. Assessment/Plan Assessment/Plan Assessment: Non-healing ulcer of lower leg, Lupus, Plan: Admit to Med-Surg, Podiatry consult, Wound care consult, Wound culture, IV antibiotic, IV hydration, NPO until seen by surgery, Consider an Infectious disease consult, Consider MRI of wound, Home medications reconciled, Plan discussed with: Patient My Orders Orders - ED TAN DIRECTOR OF BUSINESS SERVICES Procedure Category Date Status Time * Surgical Consult CONS 06/22/24 Transmitted * Wound Consult CONS 06/22/24 Transmitted Wound Culture W/ Gs BESS 06/22/24 Transmitted 08:35 Admit ADMIT 06/22/24 Transmitted 08:35 Code Status CODE 06/22/24 Transmitted 08:35 0.9% Ns 1000 Ml PHA 06/22/24 Transmitted 08:45 Hydrocodone-Acet PHA 06/22/24 Transmitted 5/325mg Tab (Rye 08:45 Ondansetron Hcl PHA 06/22/24 Transmitted (Zofran) 08:45 Docusate Sodium PHA 06/22/24 Transmitted Capsule (Colace 08:45 Complete Blood Count LAB 06/23/24 Verified 04:00 Comprehensive LAB 06/23/24 Verified Metabolic Panel 04:00 Npo (Nothing By DIET 06/22/24 Transmitted Mouth) Diet Breakfast Condition: Serious RIO 06/22/24 Transmitted 08:35 Acetaminophen Tablet PHA 06/22/24 Transmitted (Tylenol Tablet) 08:45 Date of Service: Jun 22, 2024 Billing Provider: ED TAN Common Visit Codes: [id number] INP/OBS CARE (MOD) ED TAN Jun 22, 2024 08:49
[2024-06-22] MEDS: SODIUM CHLORIDE 0.9% 1,000 ML IV ONE (09:50)
[2024-06-22] MEDS: MORPHINE SULFATE INJ 2 MG/ml SYRG IV ONE (09:51)
[2024-06-22] MEDS ORDERED: MYCO500T3 PO (10:12)
[2024-06-22] MEDS ORDERED: PRED10TA PO (10:12)
[2024-06-22 10:41] LABS: Basophils # (auto) 0 10 ^3/uL (0-0.2); Basophils % (auto) 0.3 % (0.0-2.0); Eosinophils # (auto) 0.1 10 ^3/uL (0-0.8); Eosinophils % (auto) 1.2 % (0.0-7.0); Hematocrit 36.1 % (36.0-46.0); Hemoglobin 11.8 g/dL (12.2-16.2); Lymphocytes # (auto) 1.1 10 ^3/uL (0.4-5.4); Lymphocytes % (auto) 14.9 % (10.0-50.0); Mean Corpuscular Hemoglobin 28.6 pg (28.0-32.0); Mean Corpuscular Hgb Conc. 32.6 g/dL (32.0-36.0); Mean Corpuscular Volume 87.9 fL (80.0-100.0); Monocytes # (auto) 0.5 10 ^3/uL (0-1.3); Monocytes % (auto) 6.8 % (0.0-12.0); Neutrophils # (auto) 5.6 10 ^3/uL (1.6-8.6); Neutrophils % (auto) 76.8 % (37.0-80.0); Platelet Count (auto) 211 10^3/uL (140-450); Red Blood Cells 4.11 10^6/uL (4.0-5.20); Red Cell Distribution Width 14.6 % (11.8-14.3); White Blood Cell 7.3 10^3/uL (4.4-10.8)
[2024-06-22] MEDS: HYDROcodone-ACET 5/325MG TAB PO PRN (11:06)
[2024-06-22] MEDS ORDERED: IBUP-1455 PO (11:12)
[2024-06-22] MEDS: VANCOMYCIN 1GM/250ML KIT 250 ML IV SCH (12:14)
[2024-06-22] MEDS: SODIUM CHLORIDE 0.9% 1,000 ML IV SCH (12:29)
--- NOTE | 2024-06-22 13:44 | DVHINCON2 ---
Date Seen: Jun 22, 2024 Reason for Consultation Left leg wound History of Present Illness Precious Mejía is a 85-xnvn-xuiu-old female with past medical history of Lupus who is taking chronic steroids, comes in with complaints of pain to non- healing wound to her right lower extremity. Patient states the wound began about 6 years ago from a dog bite, it started out small and has increased over the years. She has home health that comes and cleans the wound and changes the dressing. There is yellow sluff covering the entire wound, and she states it is yellow due to the cream home health placed on it. She also states that she is scheduled for a skin graft on the , but she ran out of her pain medicine a few days ago and came in because she can not stand the pain. Past Medical History See H&P Past Surgical History See H&P Family History: Diabetes mellitus G8 MOTHER Allergies: Coded Allergies: NO KNOWN ALLERGIES (Unverified , 09/30/10) Home Meds Active Scripts Hydrocodone-Acetaminophen (Hydrocodone/Acetaminophen 10-325 mg) 1 Tab Tab, 1 TAB PO QID PRN, #30 TAB Prov:SERGIO PICHARDO MD 04/22/24 Reported Medications Ibuprofen Micronized (Ibuprofen) 800 Mg Tab, 800 MG PO, TAB 06/22/24 Mycophenolate Mofetil (Mycophenolate Mofetil) 500 Mg Tab, 500 MG PO BID, TAB 06/22/24 Prednisone (Prednisone) 10 Mg Tab, 10 MG PO DAILY, MG 06/22/24 Discontinued Reported Medications Mycophenolate Mofetil (Mycophenolate Mofetil) 500 Mg Tab, 500 MG PO BID, TAB 06/22/24 Prednisone (Sterapred 12 Day) 5 Mg Matheus 09/30/10 Discontinued Scripts Ampicillin (Ampicillin) 500 Mg Cap, 1 CAP PO QID, #56 CAP Prov:SERGIO PICHARDO MD 04/22/24 Current Medications Current Medications Medications (Trade) Dose Ordered Sig/Jose Route PRN Reason Start Time Stop Time Status Last Admin Sodium Chloride 1,000 ml @ 100 mls/hr Q10H IV 06/22/24 08:45 06/22/24 12:29 Acetaminophen/ Hydrocodone Bitart (Century 5/325MG Tab) 1 tab Q4HP PRN PO MODERATE PAIN (4-6 PAIN SCALE) 06/22/24 08:45 06/22/24 11:06 Ondansetron HCl (Zofran) 4 mg Q4HP PRN IV NAUSEA / VOMITING 06/22/24 08:45 Docusate Sodium (Colace Capsule) 100 mg BIDPRN PRN PO FOR CONSTIPATION 06/22/24 08:45 Acetaminophen (Tylenol Tablet) 650 mg Q6HP PRN PO PAIN SCALE 1-3 OR TEMP>100.4 06/22/24 08:45 Vancomycin HCl 0 ml @ 0 mls/hr UD IV 06/22/24 08:45 Piperacillin Sod/ Tazobactam Sod 100 ml @ 25 mls/hr Q8HR IV 06/22/24 14:00 Vancomycin HCl 250 ml @ 200 mls/hr Q8H IV 06/22/24 12:00 06/22/24 12:14 Mycophenolate Mofetil (Cellcept) 1,000 mg BID PO 06/22/24 10:00 UNV Patient Own Medication 10 mg DAILY PO 06/22/24 10:00 UNV Vital Signs Vital Signs Date Time Temp Pulse Resp B/P (MAP) Pulse Ox O2 Delivery O2 Flow Rate FiO2 06/22/24 12:00 98 06/22/24 10:21 20 123/63 06/22/24 10:00 100 06/22/24 08:10 Room Air* 0 21 06/22/24 07:30 99.2 99.2 Physical Exam DERMATOLOGIC EXAM: - Skin is dry and cool to the touch dry bilaterally. - Nails 1-5 of the bilateral foot are thickened, discolored, dystrophic, and tender to palpate with subungual debris - Hair loss noted to bilateral feet Wound #1: Location: Left leg Measurements: Length 6 cm x width 5 cm x depth 1 cm. Wound margins: Hyperkeratotic. Wound base: Full thickness. General Appearance: Healthy and bleeding. Probes to Bone: No Purulent drainage: No Serous drainage: No Erythema: Absent VASCULAR EXAM: - DP and PT pulses are palpable bilaterally. - JOB COACH is brisk to all digits. - Feet are cool to touch compared to lower legs bilaterally. NEUROLOGIC EXAM: - Normal light touch sensation to the superficial peroneal, deep peroneal, sural, saphenous, and tibial nerve branches. - Protective sensation is diminished as tested with a 5.07 10g [place]-Tien bilaterally. MUSCULOSKELETAL EXAM: - No gross deformities - Muscle strength is 5/5 and active motion is pain-free and symmetrical bilaterally - No pain or crepitation with passive range of motion bilaterally to all major pedal joints Labs/Diagnostic Data Labs Test 06/22/24 10:28 06/21/24 21:45 Range/Units White Blood Count 7.3 4.4-10.8 10^3/uL Red Blood Count 4.11 4.0-5.20 10^6/uL Hemoglobin 11.8 L 12.2-16.2 g/dL Hematocrit 36.1 36.0-46.0 % Mean Corpuscular Volume 87.9 80.0-100.0 fL Mean Corpuscular Hemoglobin 28.6 28.0-32.0 pg Mean Corpuscular Hemoglobin Concent 32.6 32.0-36.0 g/dL Red Cell Distribution Width 14.6 H 11.8-14.3 % Platelet Count 211 140-450 10^3/uL Mean Platelet Volume 8.2 6.9-10.8 fL Neutrophils (%) (Auto) 76.8 37.0-80.0 % Lymphocytes (%) (Auto) 14.9 10.0-50.0 % Monocytes (%) (Auto) 6.8 0.0-12.0 % Eosinophils (%) (Auto) 1.2 0.0-7.0 % Basophils (%) (Auto) 0.3 0.0-2.0 % Neutrophils # (Auto) 5.6 1.6-8.6 10 ^3/uL Lymphocytes # (Auto) 1.1 0.4-5.4 10 ^3/uL Monocytes # (Auto) 0.5 0-1.3 10 ^3/uL Eosinophils # (Auto) 0.1 0-0.8 10 ^3/uL Basophils # (Auto) 0 0-0.2 10 ^3/uL Nucleated Red Blood Cells 0.0 % Creatinine 0.85 0.550-1.02 mg/dL Glomerular Filtration Rate Calc 91 >90 mL/min Sodium Level 139 136-145 mmol/L Potassium Level 3.9 3.5-5.1 mmol/L Chloride Level 110 H 98-107 mmol/L Carbon Dioxide Level 23 20-31 mmol/L Anion Gap 6 5-15 Blood Urea Nitrogen 16 9-23 mg/dL BUN/Creatinine Ratio 18.8 10.0-20.0 Serum Glucose 106 74-106 mg/dL Lactic Acid Level 0.7 0.4-2.0 mmol/L Calcium Level 9.9 8.7-10.4 mg/dL Total Bilirubin 0.3 0.2-1.0 mg/dL Aspartate Amino Transferase (AST) 19 13-40 U/L Alanine Aminotransferase (ALT) 14 7-40 U/L Alkaline Phosphatase 92 46-116 U/L Total Protein 8.5 H 5.7-8.2 g/dL Albumin 4.3 3.2-4.8 g/dL Problems(with codes): (1) Open leg wound (2) Generalized weakness (3) History of systemic lupus erythematosus (4) Cellulitis (5) Intractable pain (6) Chronic wound (7) Non-healing ulcer of lower leg Plan/Recommendation ASSESSMENT: Patient is a 38 year old seen on the floor for a worsening ulcer PLAN: - The patients chart was reviewed, clinical findings were discussed with the patient, the etiologies of the conditions were discussed in detail, and a treatment plan was agreed to at this time, with both oral and written instructions provided. - reviewed advanced imaging - discussed plan is to perform an incision and drainage with placement of graft - patient will be NPO at midnight - take him to the OR tomorrow - we will get cultures in the OR - can weightbear as tolerated in postoperative shoe All questions were answered and concerns addressed to the patient's satisfaction. The patient was given the phone number to the clinic and was told how to make contact with the clinic should any concerns or questions arise. Patient understands that if any questions or concerns arise prior to the next appointment, we should be contacted immediately. FOLLOW-UP: Continue to follow while inpatient Plan discussed with: Patient Date of Service: Jun 22, 2024 Billing Provider: ELBA ESTRADA DPM Common Visit Codes: CONSULT ONLY Consultation Codes: [id number] CONSULT <80MIN ELBA ESTRADA DPM Jun 22, 2024 13:44
[2024-06-22] MEDS: PIPERACILLIN-TAZOB 3.375GM 100 ML IV SCH (18:00)
[2024-06-22 21:52] LABS: Urine Bacteria FEW /hpf (None Seen); Urine Blood Negative /uL (Negative); Urine Clarity Clear (Clear); Urine Color Light-Yellow (Yellow); Urine Protein, UAD 2+ (Negative); Urine Squamous Epithelial Cell FEW /hpf (<5); Urine Urobilinogen Normal (Negative); Urine WBC 5 /HPF (0-5)
[2024-06-22] MEDS: MYCOPHENOLATE 500 MG TAB PO SCH (22:00)
[2024-06-23] VITALS (7 sets, daily range): BP systolic 113–136; BP diastolic 60–82; PULSE 73–111; RESP 15–20; TEMP 97.1–98.6; O2SAT 93–99
[2024-06-23 06:45] LABS: Basophils # (auto) 0 10 ^3/uL (0-0.2); Basophils % (auto) 0.2 % (0.0-2.0); Eosinophils # (auto) 0.2 10 ^3/uL (0-0.8); Eosinophils % (auto) 3.7 % (0.0-7.0); Hematocrit 34.3 % (36.0-46.0); Hemoglobin 11.2 g/dL (12.2-16.2); Lymphocytes # (auto) 1.2 10 ^3/uL (0.4-5.4); Lymphocytes % (auto) 24.1 % (10.0-50.0); Mean Corpuscular Hemoglobin 28.5 pg (28.0-32.0); Mean Corpuscular Hgb Conc. 32.6 g/dL (32.0-36.0); Mean Corpuscular Volume 87.5 fL (80.0-100.0); Monocytes # (auto) 0.4 10 ^3/uL (0-1.3); Monocytes % (auto) 7.7 % (0.0-12.0); Neutrophils # (auto) 3.2 10 ^3/uL (1.6-8.6); Neutrophils % (auto) 64.3 % (37.0-80.0); Nucleated Red Blood Cells % 0.2 %; Platelet Count (auto) 193 10^3/uL (140-450); Red Blood Cells 3.92 10^6/uL (4.0-5.20); Red Cell Distribution Width 14.7 % (11.8-14.3)
[2024-06-23 06:51] LABS: Alanine Aminotransferase 15 U/L (7-40); Albumin 3.7 g/dL (3.2-4.8); Alkaline Phosphatase 73 U/L (46-116); Anion Gap 9 (5-15); Aspartate Aminotransferase 19 U/L (13-40); BUN/Creatinine Ratio 18.4 (10.0-20.0); Blood Urea Nitrogen 14 mg/dL (9-23); Calcium 9.6 mg/dL (8.7-10.4); Carbon Dioxide 22 mmol/L (20-31); Potassium 3.8 mmol/L (3.5-5.1); Sodium 139 mmol/L (136-145); Total Protein 7.5 g/dL (5.7-8.2)
[2024-06-23 06:52] LABS: Bilirubin, Total 0.5 mg/dL (0.2-1.0); Chloride 108 mmol/L (98-107); Glucose 110 mg/dL (74-106)
[2024-06-23] MEDS: predniSONE 5 MG TAB PO SCH (10:00)
[2024-06-23] MEDS: BUPIVACAINE HCL 50 ML ONE (10:24)
[2024-06-23] MEDS ORDERED: PROPOFOL 10 MG/ML 20 ML IV ONE (11:02)
[2024-06-23] MEDS ORDERED: fentaNYL CITRATE 100 MCG/2 ML VL ONE ×2 (11:02→11:45)
[2024-06-23] MEDS: ROPIVACAINE 0.5% (5MG/ML) 20ML AMPULE IJ ONE (11:17)
[2024-06-23] MEDS ORDERED: DexAMETHasone SOD PHOS 10MG/1ML VIAL INJ ONE (12:04)
[2024-06-23] MEDS ORDERED: ONDANSETRON HCL 4 MG/2 ML VIAL ONE (12:04)
[2024-06-23] MEDS ORDERED: MEPERIDINE HCL (50 MG/ML) 1 ML VIAL ONE (12:16)
--- NOTE | 2024-06-23 12:28 | DVHPN2 ---
Precious Shelton is a 21-ram[age]gn[age]-old female with past medical history of Lupus who is taking chronic steroids, comes in with complaints of pain to non- healing wound to her right lower extremity. Patient states the wound began about 6 years ago from a dog bite, it started out small and has increased over the years. She has home health that comes and cleans the wound and changes the dressing. There is yellow sluff covering the entire wound, and she states it is yellow due to the cream home health placed on it. She also states that she is scheduled for a skin graft on the , but she ran out of her pain medicine a few days ago and came in because she can not stand the pain. Changes from previous H/P or p: No Changes Eyes: No Pain, No Vision change, No Conjunctivae inflammation, No Eyelid inflammation, No Other, No Redness ENT: No Ear pain, No Ear discharge, No Nose pain, No Nose discharge, No Nose congestion, No Mouth pain, No Mouth swelling, No Throat pain, No Throat swelling, No Other Cardiovascular: No Chest Pain, No Palpitations, No Orthopnea, No Paroxysmal Noc. Dyspnea, No Edema, No Lt Headedness, No Other Respiratory: No Cough, No Dry, No Shortness of breath, No SOB with excertion, No Wheezing, No Hemoptysis, No Pleuritic Pain, No Sputum, No Other Gastrointestinal: No Nausea, No Vomiting, No Abdominal Pain, No Diarrhea, No Constipation, No Melena, No Hematochezia, No Other Genitourinary: No Dysuria, No Frequency, No Incontinence, No Hematuria, No Retention, No Other Musculoskeletal: No other, No neck pain, No shoulder pain, No arm pain, No back pain, No hand pain; leg pain (right lower extremity pain); No foot pain Skin: No Rash, No Lesions, No Jaundice, No Bruising; Other (right leg wound, pain) Objective Vitals Vital Signs Date Time Temp Pulse Resp B/P (MAP) Pulse Ox O2 Delivery O2 Flow Rate FiO2 06/23/24 09:00 97.1 87 18 131/67 (88) 96 97.1 06/22/24 23:51 Room Air* 0 21 Intake/Output Intake and Output 06/23/24 07:00 Intake Total 2175 ml Balance 2175 ml Intake Oral 100 ml IV Total 2075 ml # Voids 2 # Bowel Movements 1 Exam DERMATOLOGIC EXAM: - Skin is dry and cool to the touch dry bilaterally. - Nails 1-5 of the bilateral foot are thickened, discolored, dystrophic, and tender to palpate with subungual debris - Hair loss noted to bilateral feet Wound #1: Location: Left leg Measurements: Length 6 cm x width 5 cm x depth 1 cm. Wound margins: Hyperkeratotic. Wound base: Full thickness. General Appearance: Healthy and bleeding. Probes to Bone: No Purulent drainage: No Serous drainage: No Erythema: Absent VASCULAR EXAM: - DP and PT pulses are palpable bilaterally. - COLLAR CUTTER is brisk to all digits. - Feet are cool to touch compared to lower legs bilaterally. NEUROLOGIC EXAM: - Normal light touch sensation to the superficial peroneal, deep peroneal, sural, saphenous, and tibial nerve branches. - Protective sensation is diminished as tested with a 5.07 10g Normal-Tien bilaterally. MUSCULOSKELETAL EXAM: - No gross deformities - Muscle strength is 5/5 and active motion is pain-free and symmetrical bilaterally - No pain or crepitation with passive range of motion bilaterally to all major pedal joints Medications Current Medications Medications Dose Ordered Sig/Jose Route Start Time Stop Time Status Last Admin Dose Admin Sodium Chloride 1,000 ml @ 100 mls/hr Q10H IV 06/22/24 08:45 06/22/24 12:29 100 MLS/HR Acetaminophen/ Hydrocodone Bitart 1 tab Q4HP PRN PO 06/22/24 08:45 06/23/24 10:06 1 TAB Ondansetron HCl 4 mg Q4HP PRN IV 06/22/24 08:45 Docusate Sodium 100 mg BIDPRN PRN PO 06/22/24 08:45 Acetaminophen 650 mg Q6HP PRN PO 06/22/24 08:45 Vancomycin HCl 0 ml @ 0 mls/hr UD IV 06/22/24 08:45 Piperacillin Sod/ Tazobactam Sod 100 ml @ 25 mls/hr Q8HR IV 06/22/24 14:00 06/23/24 06:41 25 MLS/HR Vancomycin HCl 250 ml @ 200 mls/hr Q8H IV 06/22/24 12:00 06/23/24 04:30 200 MLS/HR Mycophenolate Mofetil 1,000 mg BID PO 06/22/24 22:00 Prednisone 10 mg DAILY PO 06/23/24 10:00 Laboratory Results Laboratory Tests 06/23/24 05:56 Chemistry Test 06/23/24 05:56 Albumin 3.7 g/dL (3.2-4.8) Calcium Level 9.6 mg/dL (8.7-10.4) Total Protein 7.5 g/dL (5.7-8.2) LFT Test 06/23/24 05:56 Alanine Aminotransferase (ALT) 15 U/L (7-40) Alkaline Phosphatase 73 U/L (46-116) Aspartate Amino Transferase (AST) 19 U/L (13-40) Total Bilirubin 0.5 mg/dL (0.2-1.0) Urinalysis Test 06/22/24 21:29 Urine Color Light-yellow (Yellow) Urine Clarity Clear (Clear) Urine pH 8.0 (5.0-9.0) Urine Specific [place] 1.010 (1.001-1.035) Urine Protein 2+ (Negative) H Urine Ketones Negative (Negative) Urine Blood Negative /uL (Negative) Urine Nitrite Negative (Negative) Urine Bilirubin Negative (Negative) Urine Urobilinogen Normal mg/dL (Negative) Urine Leukocyte Esterase Negative /uL (Negative) Urine RBC 3 /hpf (0 - 4) Urine Microscopic WBC 5 /HPF (0-5) Urine Squamous Epithelial Cells Few /hpf (<5) Urine Bacteria Few /hpf (None Seen) H Urine Glucose 1+ mg/dL (Normal) H Microbiology Microbiology Date/Time Source Procedure Growth Status 06/22/24 09:09 Leg Gram Stain - Final Resulted 06/22/24 09:09 Leg Wound Culture - Preliminary Resulted 06/21/24 21:45 Blood Blood Culture - Preliminary NO GROWTH AFTER 24 HOURS OF INCUBATION. Resulted Assessment/Plan Assessment/Plan ASSESSMENT: Patient is a 38 year old seen on the floor for a worsening ulcer PLAN: - The patients chart was reviewed, clinical findings were discussed with the patient, the etiologies of the conditions were discussed in detail, and a treatment plan was agreed to at this time, with both oral and written instructions provided. - reviewed advanced imaging - discussed plan is to perform an incision and drainage with placement of graft - patient NPO since midnight - take him to the OR today - we will get cultures in the OR - can weightbear as tolerated in postoperative shoe - we will keep patient for pain control and dressing changes All questions were answered and concerns addressed to the patient's satisfaction. The patient was given the phone number to the clinic and was told how to make contact with the clinic should any concerns or questions arise. Patient understands that if any questions or concerns arise prior to the next appointment, we should be contacted immediately. FOLLOW-UP: Continue to follow while inpatient Plan discussed with: Patient My Orders Orders - ELBA ESTRADA DPM Procedure Category Date Status Time Obtain Consent For: ORDERS 06/22/24 Transmitted 14:14 Problem List: (1) Cellulitis (2) Intractable pain (3) Chronic wound (4) Generalized weakness (5) Non-healing ulcer of lower leg (6) History of systemic lupus erythematosus (7) Open leg wound Date of Service: Jun 23, 2024 Billing Provider: ELBA ESTRADA DPM Common Visit Codes: [id number] INP/OBS CARE(HIGH) ELBA ESTRADA DPM Jun 23, 2024 12:28
--- NOTE | 2024-06-23 13:07 | DVHOP2 ---
Operative Report - 2 Report Details Date: 06/23/24 Preop Diagnosis: 1. Right leg nonhealing ulcer 2. Right leg cellulitis 3. Right leg open wound Postop Diagnosis: Same as preop Surgeon: Elba Estrada MD Anesthesiologist: See anesthesia Anesthesia: General Consent: The patient was informed of the risks and benefits of the procedure. These include but are not limited to complications of anesthesia, postoperative infection, incomplete relief of symptoms, recurrence of symptoms, damage to blood vessels, nerves and tendons, deep venous thrombosis, pulmonary embolism an d possible need for repeat surgery in the future. Complications: None Estimated Blood Loss: Minimal Fluids: See anesthesia Findings: Consistent with diagnosis Indications for Surgery: Worsening right leg wound Name of Procedure Performed 1. Right leg wound bed preparation for graft (05970) 2. Right leg application of graft (33697) Procedure Details Procedure Details: PRE-PROCEDURE INFORMATION: In the pre-op holding area, the extremity to be operated on was clearly marked and the patient verified correct laterality of the marking. The patient was transferred to the OR table and placed in a supine position. A timeout was performed in which identification of the correct patient, procedure, location, and materials was done. The right foot and leg were prepped and draped in normal sterile fashion. DESCRIPTION OF PROCEDURE: Attention was directed to the right anterior leg where the wound was noted.. An incision was made over this area and was deepened through blunt dissection. Using a rongeur and curette, the wound bed was then prepped for application of graft. All of the fibrotic and necrotic material was removed at that point. Cultures were taken of the wound. After the wound was prepped for graft, the area was irrigated with 3 L normal saline using cysto tubing. The dermal graft 10 x 12 cm Integra graft was then applied to the right leg. The graft was then adhered to the wound with a staple gun. The wound was then dressed with Xeroform, 4x4s, ABD, Webril, Pako bandage. POSTOPERATIVE INFORMATION: The patient tolerated the above noted procedure and anesthesia well and was transferred to the PACU with vital signs stable, and vascular status intact with capillary refill intact to all digits. Patient will return to the floor and continue IV antibiotics. Patient will need dressing changes every other day to evaluate the graft. Patient will need IV antibiotics to help with the cellulitis around the wound. We will perform dressing changes on to evaluate the graft. Condition Good Disposition Still a Patient ELBA ESTRADA DPM Jun 23, 2024 13:07
[2024-06-23] MEDS ORDERED: MEPERIDINE HCL (25 MG/ML) 1ML VIAL IV PRN (13:15)
[2024-06-23] MEDS ORDERED: ACETAMINOPHEN IV 1000 MG/100ML (10MG/ML) IV PRN (13:15)
[2024-06-23] MEDS: ONDANSETRON HCL 4 MG/2 ML VIAL IV ONE (13:15)
[2024-06-23] MEDS: HYDROmorphone HCL 2 MG/ML VL/or syr IV PRN (13:31)
--- NOTE | 2024-06-23 16:20 | DVHPNRES ---
Progress Note Date Seen: Jun 23, 2024 Resident Creating Document: JOSE EDUARDO AGUSTIN RESIDENT Has the PT tested + for MRSA If YES, has PT been informed?: No Medical Necessity Reason Pt with a Central, PICC or Fol: No Subjective Review of Systems 38-year-old female patient with past medical history of systemic lupus erythematosus who came to the emergency department with a chief complaint of pain in the right lower leg due to nonhealing wound for the past 6 years. Patient reports the wound started after a dog bite, she was scheduled for a skin graft on the but she ran out of her pain medications a few days ago reason why she came to the ER because pain was unbearable. Podiatry was consulted, they evaluated the wound that was 6 cm x 5 cm x 1 cm, today the patient was taken to the OR are the perform an incision and drainage with placement of graft. Patient will need to continue IV antibiotics to help with the cellulitis around the wound, and also she will need a re-evaluation of the graft this by Dr. Avery. ros: Constitutional: No: Fever, Chills, Sweats, Weakness, Malaise, Other Eyes: No: Pain, Vision change, Conjunctivae inflammation, Eyelid inflammation, Other, Redness ENT: No: Ear pain, Ear discharge, Nose pain, Nose discharge, Nose congestion, Mouth pain, Mouth swelling, Throat pain, Throat swelling, Other Respiratory: Cough present, Shortness of breath, improving No Wheezing, Hemoptysis, Pleuritic Pain, Sputum, Wheezing, Other Cardiovascular: No: Chest Pain, Palpitations, Orthopnea, Paroxysmal Noc. Dyspnea, Edema, Lt Headedness, Other Gastrointestinal: No: Nausea, Vomiting, Abdominal Pain, Diarrhea, Constipation, Melena, Hematochezia, Other Musculoskeletal: Wound located in the right lower leg that causes some discomfort No: other, neck pain, shoulder pain, arm pain, back pain, hand pain, leg pain, foot pain Neurological:; No: Weakness, Numbness, Incoordination, Change in speech, Confusion, Seizures Patient reports: No new complaints Changes from previous H/P or p: No Changes Objective vital signs Vital Sign Date Time Temp Pulse Resp B/P (MAP) Pulse Ox O2 Delivery O2 Flow Rate FiO2 06/23/24 14:00 77 14 111/69 (83) 99 06/23/24 13:03 6.0 3/11/25 13:03 97.2 97.2 06/23/24 13:03 Mask 97 Total Intake and Output 06/22/24 06/22/24 06/23/24 15:00 23:00 07:00 Intake Total 1100 ml 975 ml 100 ml Balance 1100 ml 975 ml 100 ml medications Current Medications Medications Dose Ordered Sig/Jose Route Start Time Stop Time Status Last Admin Dose Admin Sodium Chloride 1,000 ml @ 100 mls/hr Q10H IV 06/22/24 08:45 06/23/24 15:08 100 MLS/HR Acetaminophen/ Hydrocodone Bitart 1 tab Q4HP PRN PO 06/22/24 08:45 06/23/24 10:06 1 TAB Ondansetron HCl 4 mg Q4HP PRN IV 06/22/24 08:45 Docusate Sodium 100 mg BIDPRN PRN PO 06/22/24 08:45 Acetaminophen 650 mg Q6HP PRN PO 06/22/24 08:45 Vancomycin HCl 0 ml @ 0 mls/hr UD IV 06/22/24 08:45 Piperacillin Sod/ Tazobactam Sod 100 ml @ 25 mls/hr Q8HR IV 06/22/24 14:00 06/23/24 15:08 25 MLS/HR Mycophenolate Mofetil 1,000 mg BID PO 06/22/24 22:00 Prednisone 10 mg DAILY PO 06/23/24 10:00 Vancomycin HCl 150 ml @ 150 mls/hr Q8H IV 06/23/24 19:00 Examination Examination General Appearance: Alert, Oriented X3, Cooperative, No acute distress Respiratory: Clear to auscultation, Normal air movement Cardiovascular: Regular rate, Normal S1, Normal S2 Abdominal: Normal bowel sounds Extremities: Non healed right anterior wound 6 cm x 5 cm, with a inflammatory changes around the wound. ng Neuro: Normal speech, Strength at 5/5 X4 ext, Normal tone, Sensation intact, Cranial nerves 3-12 NL, Reflexes 2+ Psych/Mental Status: Mental status NL, Mood NL laboratory and microbiology Laboratory Tests 06/23/24 05:56 Test 06/23/24 05:56 Range/Units Serum Glucose 110 H 74-106 mg/dL Microbiology Date/Time Source Procedure Growth Status 06/22/24 09:09 Leg Gram Stain - Final Resulted 06/22/24 09:09 Leg Wound Culture - Preliminary Resulted 06/21/24 21:45 Blood Blood Culture - Preliminary NO GROWTH AFTER 24 HOURS OF INCUBATION. Resulted Labs and/or images reviewed: Labs reviewed by me, Image(s) reviewed by me Problem List/Assessment/Plan Problem List/Assessment/Plan Sepsis due to cellulitis - IV antibiotics -wound care -podiatry consult chronic nonhealing ulcer in the right lower leg status post incision and drainage and skin graft placement - pot annealer consult - continue IV antibiotics - wound care History of systemic lupus erythematosus -continue steroids - Continue home medications Normocytic normochromic anemia -Monitor Type 2 obesity, BMI 38.7 Lifestyle modification counseling and dietary habits counseling Case discussed with Dr. Veliz Goals of care discussed with the patient for 33 minutes Code status: Full code Plan discussed with: Patient Date of Service: Jun 23, 2024 Billing Provider: CARSON VELIZ MD Common Visit Codes: [id number] INP/OBS CARE(HIGH) JOSE EDUARDO AGUSTIN RESIDENT Jun 23, 2024 16:20 CARSON VELIZ MD Jun 29, 2024 14:56
[2024-06-23] MEDS: VANCOMYCIN 750mg/150ml 150 ML IV SCH (18:18)
[2024-06-23] MEDS: PIPERACILLIN-TAZOB 3.375GM 100 ML IV SCH (22:17)
[2024-06-23] MEDS: MORPHINE SULFATE INJ 2 MG/ml SYRG IV ONE (22:45)
[2024-06-24] VITALS (7 sets, daily range): BP systolic 114–132; BP diastolic 63–81; PULSE 60–72; RESP 18–20; TEMP 97.7–98.2; O2SAT 97–99
[2024-06-24 06:58] LABS: Chloride 107 mmol/L (98-107); Potassium 4.3 mmol/L (3.5-5.1); Sodium 139 mmol/L (136-145)
[2024-06-24 06:59] LABS: Anion Gap 8 (5-15); Calcium 9.7 mg/dL (8.7-10.4); Carbon Dioxide 24 mmol/L (20-31)
[2024-06-24 07:04] LABS: BUN/Creatinine Ratio 16.7 (10.0-20.0); Blood Urea Nitrogen 14 mg/dL (9-23)
[2024-06-24 07:05] LABS: Glucose 138 mg/dL (74-106)
[2024-06-24 07:25] LABS: Basophils # (auto) 0 10 ^3/uL (0-0.2); Basophils % (auto) 0.2 % (0.0-2.0); Eosinophils # (auto) 0 10 ^3/uL (0-0.8); Hematocrit 34.9 % (36.0-46.0); Hemoglobin 11.3 g/dL (12.2-16.2); Lymphocytes # (auto) 1.2 10 ^3/uL (0.4-5.4); Mean Corpuscular Hemoglobin 28.4 pg (28.0-32.0); Mean Corpuscular Hgb Conc. 32.3 g/dL (32.0-36.0); Mean Corpuscular Volume 87.9 fL (80.0-100.0); Monocytes # (auto) 0.2 10 ^3/uL (0-1.3); Monocytes % (auto) 3.4 % (0.0-12.0); Neutrophils # (auto) 4.6 10 ^3/uL (1.6-8.6); Neutrophils % (auto) 76.4 % (37.0-80.0); Nucleated Red Blood Cells % 0.2 %; Platelet Count (auto) 212 10^3/uL (140-450); Red Blood Cells 3.97 10^6/uL (4.0-5.20); Red Cell Distribution Width 14.6 % (11.8-14.3)
--- NOTE | 2024-06-24 15:40 | DVHPNRES ---
Progress Note Date Seen: Jun 24, 2024 Resident Creating Document: JOSE EDUARDO AGUSTIN RESIDENT Has the PT tested + for MRSA If YES, has PT been informed?: No Medical Necessity Reason Pt with a Central, PICC or Fol: No Subjective Review of Systems Patient was examined at bedside, she denies any acute symptoms, she denies pain or shortness of breaths fever or headaches. Incision drainage procedure was performed yesterday by telecom analyst who will re- evaluate the skin graft tomorrow. Patient will need to continue on IV antibiotics and medication for pain control. ROS Constitutional: No: Fever, Chills, Sweats, Weakness, Malaise, Other Eyes: No: Pain, Vision change, Conjunctivae inflammation, Eyelid inflammation, Other, Redness ENT: No: Ear pain, Ear discharge, Nose pain, Nose discharge, Nose congestion, Mouth pain, Mouth swelling, Throat pain, Throat swelling, Other Respiratory: No Wheezing, Hemoptysis, Pleuritic Pain, Sputum, Wheezing, Other Cardiovascular: No: Chest Pain, Palpitations, Orthopnea, Paroxysmal Noc. Dyspnea, Edema, Lt Headedness, Other Gastrointestinal: No: Nausea, Vomiting, Abdominal Pain, Diarrhea, Constipation, Melena, Hematochezia, Other Musculoskeletal: No: other, neck pain, shoulder pain, arm pain, back pain, hand pain, leg pain, foot pain Neurological:; No: Weakness, Numbness, Incoordination, Change in speech, Confusion, Seizures Patient reports: No new complaints Changes from previous H/P or p: No Changes Objective vital signs Vital Sign Date Time Temp Pulse Resp B/P (MAP) Pulse Ox O2 Delivery O2 Flow Rate FiO2 06/24/24 13:00 97.8 61 20 132/69 (90) 98 97.8 06/24/24 08:00 Room Air* 0 21 Total Intake and Output 06/23/24 06/23/24 06/24/24 15:00 23:00 07:00 Intake Total 200 ml 150 ml 1000 ml Balance 200 ml 150 ml 1000 ml medications Current Medications Medications Dose Ordered Sig/Jose Route Start Time Stop Time Status Last Admin Dose Admin Sodium Chloride 1,000 ml @ 100 mls/hr Q10H IV 06/22/24 08:45 06/23/24 15:08 100 MLS/HR Acetaminophen/ Hydrocodone Bitart 1 tab Q4HP PRN PO 06/22/24 08:45 06/24/24 15:08 1 TAB Ondansetron HCl 4 mg Q4HP PRN IV 06/22/24 08:45 Docusate Sodium 100 mg BIDPRN PRN PO 06/22/24 08:45 Acetaminophen 650 mg Q6HP PRN PO 06/22/24 08:45 Vancomycin HCl 0 ml @ 0 mls/hr UD IV 06/22/24 08:45 Mycophenolate Mofetil 1,000 mg BID PO 06/22/24 22:00 Prednisone 10 mg DAILY PO 06/23/24 10:00 Vancomycin HCl 150 ml @ 150 mls/hr Q8H IV 06/23/24 19:00 06/24/24 10:50 150 MLS/HR Piperacillin Sod/ Tazobactam Sod 100 ml @ 25 mls/hr Q6H IV 06/23/24 21:00 06/24/24 15:07 25 MLS/HR Examination Examination General Appearance: Alert, Oriented X3, Cooperative, No acute distress HEENT: EOMI Respiratory: Clear to auscultation, Normal air movement Cardiovascular: Regular rate, Normal S1, Normal S2 Abdominal: Normal bowel sounds Extremities: Skin graft placed in the right anterior lower leg Skin: No rashes, No breakdown Neuro: Normal gait, Normal speech, Strength at 5/5 X4 ext, Normal tone, Sensation intact, Cranial nerves 3-12 NL, Reflexes 2+ Psych/Mental Status: Mental status NL, Mood NL laboratory and microbiology Laboratory Tests 06/24/24 05:45 Test 06/24/24 05:45 Range/Units Serum Glucose 138 H 74-106 mg/dL Microbiology Date/Time Source Procedure Growth Status 06/23/24 12:45 Leg Right Gram Stain - Final Resulted 06/23/24 12:45 Leg Right Anaerobic Culture - Preliminary Resulted 06/23/24 12:45 Leg Right Aerobic Culture - Preliminary Resulted 06/21/24 21:45 Blood Blood Culture - Preliminary NO GROWTH AFTER 48 HOURS OF INCUBATION. Resulted Labs and/or images reviewed: Labs reviewed by me, Image(s) reviewed by me Problem List/Assessment/Plan Problem List/Assessment/Plan Sepsis due to cellulitis -admit to [facility] -currently on room air - IV antibiotics -wound care -skin graft procedure and was done yesterday -podiatry consult -dressing changes -re-evaluation by telecom analyst tomorrow chronic nonhealing ulcer in the right lower leg status post incision and drainage and skin graft placement - telecom analyst consult - continue IV antibiotics - wound care History of systemic lupus erythematosus -continue steroids - Continue home medications Normocytic normochromic anemia -Monitor Type 2 obesity, BMI 38.7 Lifestyle modification counseling and dietary habits counseling Case discussed with Dr. Veliz Goals of care discussed with the patient for 33 minutes Code status: Full code Plan discussed with: Patient Date of Service: Jun 24, 2024 Billing Provider: CARSON VELIZ MD Common Visit Codes: [id number] INP/OBS CARE(HIGH) JOSE EDUARDO AGUSTIN RESIDENT Jun 24, 2024 15:40 CARSON VELIZ MD Jun 29, 2024 15:26
[2024-06-25] VITALS (8 sets, daily range): BP systolic 126–137; BP diastolic 71–82; PULSE 57–73; RESP 18–20; TEMP 97.5–98.4; O2SAT 95–99
[2024-06-25] MEDS: PIPERACILLIN-TAZOB 3.375GM 100 ML IV SCH (05:37)
[2024-06-25 05:54] LABS: Basophils # (auto) 0 10 ^3/uL (0-0.2); Basophils % (auto) 0.4 % (0.0-2.0); Eosinophils # (auto) 0.2 10 ^3/uL (0-0.8); Eosinophils % (auto) 2.3 % (0.0-7.0); Hematocrit 32.6 % (36.0-46.0); Hemoglobin 10.5 g/dL (12.2-16.2); Lymphocytes # (auto) 3.1 10 ^3/uL (0.4-5.4); Lymphocytes % (auto) 47.8 % (10.0-50.0); Mean Corpuscular Hemoglobin 28.3 pg (28.0-32.0); Mean Corpuscular Hgb Conc. 32.1 g/dL (32.0-36.0); Monocytes # (auto) 0.7 10 ^3/uL (0-1.3); Monocytes % (auto) 10.5 % (0.0-12.0); Neutrophils # (auto) 2.5 10 ^3/uL (1.6-8.6); Nucleated Red Blood Cells % 0.1 %; Platelet Count (auto) 200 10^3/uL (140-450); Red Cell Distribution Width 14.5 % (11.8-14.3); White Blood Cell 6.4 10^3/uL (4.4-10.8)
[2024-06-25 06:08] LABS: Anion Gap 8 (5-15); Carbon Dioxide 24 mmol/L (20-31); Potassium 3.8 mmol/L (3.5-5.1); Sodium 140 mmol/L (136-145)
[2024-06-25 06:09] LABS: Calcium 9.1 mg/dL (8.7-10.4)
[2024-06-25 06:14] LABS: BUN/Creatinine Ratio 18.9 (10.0-20.0); Blood Urea Nitrogen 14 mg/dL (9-23); Glucose 96 mg/dL (74-106)
[2024-06-25 06:24] LABS: Chloride 108 mmol/L (98-107)
--- NOTE | 2024-06-25 09:19 | MEDREC ---
[facility] ASP Intervention Section I [facility] ASP Intervention: Dose optimization(PK/PD) (PLEASE CONSIDER CHANGING DOSE OF CEFTRIAXONE FROM 2 GRAMS TO 1 GRAM DAILY IF CELLULITIS IS THE ONLY CONCERN FOR INFECTION ) LINDA ALVAREZ Jun 25, 2024 09:19
[2024-06-25] MEDS: cefTRIAXone 2GM/50ML D5W 50 ML IV SCH (10:14)
[2024-06-25] MEDS: cefTRIAXone 1GM/50ML D5W 50 ML IV ONE (11:45)
--- NOTE | 2024-06-25 13:01 | DVHPN2 ---
Precious Shelton is a 8-[id number]-old female with past medical history of Lupus who is taking chronic steroids, comes in with complaints of pain to non- healing wound to her right lower extremity. Patient states the wound began about 6 years ago from a dog bite, it started out small and has increased over the years. She has home health that comes and cleans the wound and changes the dressing. There is yellow sluff covering the entire wound, and she states it is yellow due to the cream home health placed on it. She also states that she is scheduled for a skin graft on the , but she ran out of her pain medicine a few days ago and came in because she can not stand the pain. Changes from previous H/P or p: No Changes Eyes: No Pain, No Vision change, No Conjunctivae inflammation, No Eyelid inflammation, No Other, No Redness ENT: No Ear pain, No Ear discharge, No Nose pain, No Nose discharge, No Nose congestion, No Mouth pain, No Mouth swelling, No Throat pain, No Throat swelling, No Other Cardiovascular: No Chest Pain, No Palpitations, No Orthopnea, No Paroxysmal Noc. Dyspnea, No Edema, No Lt Headedness, No Other Respiratory: No Cough, No Dry, No Shortness of breath, No SOB with excertion, No Wheezing, No Hemoptysis, No Pleuritic Pain, No Sputum, No Other Gastrointestinal: No Nausea, No Vomiting, No Abdominal Pain, No Diarrhea, No Constipation, No Melena, No Hematochezia, No Other Genitourinary: No Dysuria, No Frequency, No Incontinence, No Hematuria, No Retention, No Other Musculoskeletal: No other, No neck pain, No shoulder pain, No arm pain, No back pain, No hand pain; leg pain (right lower extremity pain); No foot pain Skin: No Rash, No Lesions, No Jaundice, No Bruising; Other (right leg wound, pain) Objective Vitals Vital Signs Date Time Temp Pulse Resp B/P (MAP) Pulse Ox O2 Delivery O2 Flow Rate FiO2 06/25/24 08:51 98.1 73 18 129/71 (90) 98 98.1 06/25/24 08:00 Room Air* 0 21 Intake/Output Intake and Output 06/25/24 07:00 Intake Total 2250 ml Output Total 2750 ml Balance -500 ml Intake Oral 1850 ml IV Total 400 ml Output Urine Total 2750 ml Exam DERMATOLOGIC EXAM: - Skin is dry and cool to the touch dry bilaterally. - Nails 1-5 of the bilateral foot are thickened, discolored, dystrophic, and tender to palpate with subungual debris - Hair loss noted to bilateral feet Wound #1: Location: Left leg Measurements: Length 6 cm x width 5 cm x depth 1 cm. Wound margins: Hyperkeratotic. Wound base: Full thickness. General Appearance: Healthy and bleeding. Probes to Bone: No Purulent drainage: No Serous drainage: No Erythema: Absent VASCULAR EXAM: - DP and PT pulses are palpable bilaterally. - [employer]NER is brisk to all digits. - Feet are cool to touch compared to lower legs bilaterally. NEUROLOGIC EXAM: - Normal light touch sensation to the superficial peroneal, deep peroneal, sural, saphenous, and tibial nerve branches. - Protective sensation is diminished as tested with a 5.07 10g [place] bilaterally. MUSCULOSKELETAL EXAM: - No gross deformities - Muscle strength is 5/5 and active motion is pain-free and symmetrical bilaterally - No pain or crepitation with passive range of motion bilaterally to all major pedal joints Medications Current Medications Medications Dose Ordered Sig/Jose Route Start Time Stop Time Status Last Admin Dose Admin Sodium Chloride 1,000 ml @ 100 mls/hr Q10H IV 06/22/24 08:45 06/25/24 06:51 100 MLS/HR Acetaminophen/ Hydrocodone Bitart 1 tab Q4HP PRN PO 06/22/24 08:45 06/25/24 09:25 1 TAB Ondansetron HCl 4 mg Q4HP PRN IV 06/22/24 08:45 Docusate Sodium 100 mg BIDPRN PRN PO 06/22/24 08:45 Acetaminophen 650 mg Q6HP PRN PO 06/22/24 08:45 Mycophenolate Mofetil 1,000 mg BID PO 06/22/24 22:00 Prednisone 10 mg DAILY PO 06/23/24 10:00 Acetaminophen/ Hydrocodone Bitart 1 tab Q4HP PRN PO 06/25/24 11:45 Ceftriaxone Sodium 50 ml @ 100 mls/hr DAILY@09 IV 06/26/24 09:00 Laboratory Results Laboratory Tests 06/25/24 05:34 Chemistry Test 06/25/24 05:34 Calcium Level 9.1 mg/dL (8.7-10.4) Urinalysis Test 06/22/24 21:29 Urine Color Light-yellow (Yellow) Urine Clarity Clear (Clear) Urine pH 8.0 (5.0-9.0) Urine Specific [place] 1.010 (1.001-1.035) Urine Protein 2+ (Negative) H Urine Ketones Negative (Negative) Urine Blood Negative /uL (Negative) Urine Nitrite Negative (Negative) Urine Bilirubin Negative (Negative) Urine Urobilinogen Normal mg/dL (Negative) Urine Leukocyte Esterase Negative /uL (Negative) Urine RBC 3 /hpf (0 - 4) Urine Microscopic WBC 5 /HPF (0-5) Urine Squamous Epithelial Cells Few /hpf (<5) Urine Bacteria Few /hpf (None Seen) H Urine Glucose 1+ mg/dL (Normal) H Microbiology Microbiology Date/Time Source Procedure Growth Status 06/23/24 12:45 Leg Right Gram Stain - Final Resulted 06/23/24 12:45 Leg Right Anaerobic Culture - Preliminary Resulted 06/23/24 12:45 Leg Right Aerobic Culture - Preliminary Resulted 06/21/24 21:45 Blood Blood Culture - Preliminary NO GROWTH AFTER 72 HOURS OF INCUBATION. Resulted Assessment/Plan Assessment/Plan ASSESSMENT: Patient is a 38 year old seen on the floor for a worsening ulcer PLAN: - The patients chart was reviewed, clinical findings were discussed with the patient, the etiologies of the conditions were discussed in detail, and a treatment plan was agreed to at this time, with both oral and written instructions provided. - postop from a graft placement - recommend patient gets discharged home with 6 weeks of IV antibiotics - high risk for graft failure if no antibiotics given - leave dressings in place until she follows up next week - dressings include Xeroform gauze Kerlix Pako All questions were answered and concerns addressed to the patient's satisfaction. The patient was given the phone number to the clinic and was told how to make contact with the clinic should any concerns or questions arise. Patient understands that if any questions or concerns arise prior to the next appointment, we should be contacted immediately. FOLLOW-UP: Continue to follow while inpatient Plan discussed with: Patient Problem List: (1) Cellulitis (2) Intractable pain (3) Chronic wound (4) Generalized weakness (5) Non-healing ulcer of lower leg (6) History of systemic lupus erythematosus (7) Open leg wound Date of Service: Jun 25, 2024 Billing Provider: ELBA ESTRADA DPM Common Visit Codes: [id number] INP/OBS CARE(HIGH) ELBA ESTRADA DPM Jun 25, 2024 13:01
[2024-06-25] MEDS: HYDROcodone-ACET 10/325MG TAB PO ONE (16:24)
--- NOTE | 2024-06-25 17:56 | DVHPNRES ---
Progress Note Date Seen: Jun 25, 2024 Resident Creating Document: JOSE EDUARDO AGUSTIN RESIDENT Has the PT tested + for MRSA If YES, has PT been informed?: No Medical Necessity Reason Pt with a Central, PICC or Fol: No Subjective Review of Systems Patient was examined at bedside, she denies any acute symptoms, she denies pain, shortness of breaths, fever or headaches. Incision drainage procedure was by cream maker who have re-evaluated the graft today, patient will need 6 weeks of IV antibiotics and follow-up with the him in the outpatient. Patient will need to continue on IV antibiotics and medication for pain control. ROS Constitutional: No: Fever, Chills, Sweats, Weakness, Malaise, Other Eyes: No: Pain, Vision change, Conjunctivae inflammation, Eyelid inflammation, Other, Redness ENT: No: Ear pain, Ear discharge, Nose pain, Nose discharge, Nose congestion, Mouth pain, Mouth swelling, Throat pain, Throat swelling, Other Respiratory: No Wheezing, Hemoptysis, Pleuritic Pain, Sputum, Wheezing, Other Cardiovascular: No: Chest Pain, Palpitations, Orthopnea, Paroxysmal Noc. Dyspnea, Edema, Lt Headedness, Other Gastrointestinal: No: Nausea, Vomiting, Abdominal Pain, Diarrhea, Constipation, Melena, Hematochezia, Other Musculoskeletal: No: other, neck pain, shoulder pain, arm pain, back pain, hand pain, leg pain, foot pain Neurological:; No: Weakness, Numbness, Incoordination, Change in speech, Confusion, Seizures Patient reports: Feels better Changes from previous H/P or p: Changes Objective vital signs Vital Sign Date Time Temp Pulse Resp B/P (MAP) Pulse Ox O2 Delivery O2 Flow Rate FiO2 06/25/24 13:00 97.7 57 20 128/82 (97) 97 97.7 06/25/24 08:00 Room Air* 0 21 Total Intake and Output 06/24/24 06/24/24 06/25/24 15:00 23:00 07:00 Intake Total 1300 ml 950 ml Output Total 1500 ml 1250 ml Balance -200 ml -300 ml medications Current Medications Medications Dose Ordered Sig/Jose Route Start Time Stop Time Status Last Admin Dose Admin Sodium Chloride 1,000 ml @ 100 mls/hr Q10H IV 06/22/24 08:45 06/25/24 06:51 100 MLS/HR Acetaminophen/ Hydrocodone Bitart 1 tab Q4HP PRN PO 06/22/24 08:45 06/25/24 09:25 1 TAB Ondansetron HCl 4 mg Q4HP PRN IV 06/22/24 08:45 Docusate Sodium 100 mg BIDPRN PRN PO 06/22/24 08:45 Acetaminophen 650 mg Q6HP PRN PO 06/22/24 08:45 Mycophenolate Mofetil 1,000 mg BID PO 06/22/24 22:00 Prednisone 10 mg DAILY PO 06/23/24 10:00 Acetaminophen/ Hydrocodone Bitart 1 tab Q4HP PRN PO 06/25/24 11:45 Ceftriaxone Sodium 50 ml @ 100 mls/hr DAILY@09 IV 06/26/24 09:00 Examination Examination General Appearance: Alert, Oriented X3, Cooperative, No acute distress Respiratory: Clear to auscultation, Normal air movement Cardiovascular: Regular rate, Normal S1, Normal S2 Abdominal: Normal bowel sounds Extremities: No cyanosis, No edema, Normal pulses, No tenderness/swelling Skin: Skin is dry and cold to the touch Dr. Bilaterally, and has lost was noted to bilateral feet, on wound examination the wound appears healthy and bleeding probe to bone test was negative. Neuro: Normal gait, Normal speech, Strength at 5/5 X4 ext, Normal tone, Sensation intact, Cranial nerves 3-12 NL, Reflexes 2+ Psych/Mental Status: Mental status NL, Mood NL laboratory and microbiology Laboratory Tests 06/25/24 05:34 Test 06/25/24 05:34 Range/Units Serum Glucose 96 74-106 mg/dL Microbiology Date/Time Source Procedure Growth Status 06/23/24 12:45 Leg Right Gram Stain - Final Resulted 06/23/24 12:45 Leg Right Anaerobic Culture - Preliminary Resulted 06/23/24 12:45 Aerobic Culture - Final Proteus mirabilis Streptococcus Group A Resulted 06/21/24 21:45 Blood Blood Culture - Preliminary NO GROWTH AFTER 72 HOURS OF INCUBATION. Resulted Labs and/or images reviewed: Labs reviewed by me, Image(s) reviewed by me Problem List/Assessment/Plan Problem List/Assessment/Plan Sepsis due to cellulitis -admit to [facility] -currently on room air - IV antibiotics -wound care -skin graft procedure was the cream maker. -podiatry consult -dressing changes -patient will need IV antibiotics for 6 weeks. -patient will need to continue IV ceftriaxone after discharge chronic nonhealing ulcer in the right lower leg status post incision and drainage and skin graft placement - cream maker consult - continue IV antibiotics - wound care History of systemic lupus erythematosus - continue steroids - Continue home medications Normocytic normochromic anemia -Monitor Chronic back pain -[place] 10 p.o. Type 2 obesity, BMI 38.7 Lifestyle modification counseling and dietary habits counseling Case discussed with Dr. Veliz Goals of care discussed with the patient for 33 minutes Code status: Full code Plan discussed with: Patient My Orders My Orders Orders - JOSE EDUARDO AGUSTIN Procedure Category Date Status Time Hydrocodone-Acet PHA 06/25/24 In Process 10/325mg Tab ([place] 11:45 Ceftriaxone 1gm/50ml PHA 06/26/24 In Process D5w (Rocephin) 09:00 Dietary NOTICE 06/25/24 Transmitted Recommendations 14:31 Dietary Evaluation Review Comments: 1) [place] 1 pk BID 2) Continue current plan of care Expected Outcomes/Goals: Pt will meet >75% estimated needs Fu 5-7 days Date of Service: Jun 25, 2024 Billing Provider: CARSON VELIZ MD Common Visit Codes: [id number] INP/OBS CARE(MOD) JOSE EDUARDO AGUSTIN RESIDENT Jun 25, 2024 17:56 CARSON VELIZ MD Jun 29, 2024 15:41
[2024-06-25] MEDS: HYDROcodone-ACET 10/325MG TAB PO PRN (21:09)
[2024-06-26] VITALS (7 sets, daily range): BP systolic 103–155; BP diastolic 52–91; PULSE 57–73; RESP 12–19; TEMP 97.3–98.3; O2SAT 96–98
[2024-06-26 06:16] LABS: Basophils # (auto) 0 10 ^3/uL (0-0.2); Basophils % (auto) 0.7 % (0.0-2.0); Eosinophils # (auto) 0.2 10 ^3/uL (0-0.8); Eosinophils % (auto) 4.1 % (0.0-7.0); Hematocrit 34.5 % (36.0-46.0); Hemoglobin 11.1 g/dL (12.2-16.2); Lymphocytes # (auto) 2.1 10 ^3/uL (0.4-5.4); Lymphocytes % (auto) 40.7 % (10.0-50.0); Mean Corpuscular Hemoglobin 28.1 pg (28.0-32.0); Mean Corpuscular Hgb Conc. 32.3 g/dL (32.0-36.0); Monocytes # (auto) 0.6 10 ^3/uL (0-1.3); Monocytes % (auto) 12.4 % (0.0-12.0); Neutrophils # (auto) 2.1 10 ^3/uL (1.6-8.6); Neutrophils % (auto) 42.1 % (37.0-80.0); Nucleated Red Blood Cells % 0.2 %; Platelet Count (auto) 227 10^3/uL (140-450); Red Blood Cells 3.97 10^6/uL (4.0-5.20); Red Cell Distribution Width 14.3 % (11.8-14.3); White Blood Cell 5.1 10^3/uL (4.4-10.8)
[2024-06-26] MEDS: cefTRIAXone 1GM/50ML D5W 50 ML IV SCH (09:00)
[2024-06-26 13:27] LABS: INR 1.02 (0.9-1.15); Partial Thromboplastin Time 27.3 SEC (24.5-34.5); Prothrombin Time 10.8 sec (9.3-11.8)
[2024-06-26] MEDS: cefTRIAXone 1GM/50ML D5W 50 ML IV ONE (17:45)
--- NOTE | 2024-06-26 18:44 | DVHPNRES ---
Progress Note Date Seen: Jun 26, 2024 Resident Creating Document: JOSE EDUARDO AGUSTIN RESIDENT Has the PT tested + for MRSA If YES, has PT been informed?: No Medical Necessity Reason Pt with a Central, PICC or Fol: No Subjective Review of Systems 38 year old patient was examined at bedside, she reports pain in the right arm (IV line site), patient request removal of the IV line, she was informed of the importance of continue antibiotic therapy safely and the necessity of the peripheral IV line until the PICC line can be placed. Despite demonstrated understanding of the recent rational she declined and stated she prefers to wait until lipid lines placed. Patient will need to continue 6 weeks of IV antibiotics treatment, home health services still pending. Patient reports: No new complaints Changes from previous H/P or p: No Changes Review of Systems: HEENT:Normal, CVS:Normal, RESPIRATORY:Normal, GI:Normal, :Normal, MSK:Normal, NEURO:Normal Objective vital signs Vital Sign Date Time Temp Pulse Resp B/P (MAP) Pulse Ox O2 Delivery O2 Flow Rate FiO2 06/26/24 17:01 98.3 67 16 103/52 (69) 97 98.3 06/26/24 08:00 Room Air* 0 21 Total Intake and Output 06/25/24 06/25/24 06/26/24 15:00 23:00 07:00 Intake Total 150 ml 1020 ml 700 ml Output Total 800 ml Balance 150 ml 220 ml 700 ml medications Current Medications Medications Dose Ordered Sig/Jose Route Start Time Stop Time Status Last Admin Dose Admin Sodium Chloride 1,000 ml @ 100 mls/hr Q10H IV 06/22/24 08:45 06/26/24 02:27 100 MLS/HR Acetaminophen/ Hydrocodone Bitart 1 tab Q4HP PRN PO 06/22/24 08:45 06/25/24 09:25 1 TAB Ondansetron HCl 4 mg Q4HP PRN IV 06/22/24 08:45 Docusate Sodium 100 mg BIDPRN PRN PO 06/22/24 08:45 Acetaminophen 650 mg Q6HP PRN PO 06/22/24 08:45 Mycophenolate Mofetil 1,000 mg BID PO 06/22/24 22:00 Prednisone 10 mg DAILY PO 06/23/24 10:00 Acetaminophen/ Hydrocodone Bitart 1 tab Q4HP PRN PO 06/25/24 11:45 06/26/24 15:53 1 TAB Ceftriaxone Sodium 50 ml @ 100 mls/hr DAILY@09 IV 06/26/24 09:00 Examination: GENERAL:Normal, HEENT:Normal, NECK:Normal, LUNGS:Normal, CVS:Normal, ABDOMEN:Normal, MSK:Normal, SKIN:Abnormal, NEURO:Normal, :Normal laboratory and microbiology Laboratory Tests 06/26/24 05:36 06/25/24 05:34 Test 06/25/24 05:34 Range/Units Serum Glucose 96 74-106 mg/dL Microbiology Date/Time Source Procedure Growth Status 06/23/24 12:45 Leg Right Gram Stain - Final Resulted 06/23/24 12:45 Leg Right Anaerobic Culture - Preliminary Resulted 06/23/24 12:45 Aerobic Culture - Final Proteus mirabilis Streptococcus Group A Resulted 06/21/24 21:45 Blood Blood Culture - Preliminary NO GROWTH AFTER 72 HOURS OF INCUBATION. Resulted Labs and/or images reviewed: Labs reviewed by me, Image(s) reviewed by me Problem List/Assessment/Plan Problem List/Assessment/Plan Sepsis due to cellulitis due to Proteus mirabilis/group B Streptococcus, pansensitive -admit to med surge -currently on room air - IV antibiotics, ceftriaxone daily -wound care -skin graft -podiatry consult -PICC line -patient will need IV antibiotics for 6 weeks. 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 Type 2 obesity, BMI 38.7 Lifestyle modification counseling and dietary habits counseling Case discussed with Dr. Veliz Goals of care discussed with the patient for 33 minutes Code status: Full code Plan discussed with: Patient Dietary Evaluation Review Comments: 1) Juan Jose 1 pk BID 2) Continue current plan of care Expected Outcomes/Goals: Pt will meet >75% estimated needs Fu 5-7 days Date of Service: Jun 26, 2024 Billing Provider: CARSON VELIZ MD Common Visit Codes: [id number] INP/OBS CARE(HIGH) JOSE EDUARDO AGUSTIN RESIDENT Jun 26, 2024 18:44 CARSON VELIZ MD Jun 29, 2024 16:06
[2024-06-27] VITALS (8 sets, daily range): BP systolic 117–140; BP diastolic 57–80; PULSE 65–89; RESP 12–22; TEMP 97.5–98.1; O2SAT 95–98
[2024-06-27 07:05] LABS: Anion Gap 9 (5-15); Calcium 9.5 mg/dL (8.7-10.4); Carbon Dioxide 24 mmol/L (20-31); Chloride 105 mmol/L (98-107); Potassium 3.9 mmol/L (3.5-5.1); Sodium 138 mmol/L (136-145)
[2024-06-27 07:12] LABS: BUN/Creatinine Ratio 21.3 (10.0-20.0); Blood Urea Nitrogen 17 mg/dL (9-23); Glucose 95 mg/dL (74-106)
--- NOTE | 2024-06-27 15:44 | DVHPNRES ---
Progress Note Date Seen: Jun 27, 2024 Resident Creating Document: JOSE EDUARDO AGUSTIN RESIDENT Has the PT tested + for MRSA If YES, has PT been informed?: No Medical Necessity Reason Pt with a Central, PICC or Fol: No Subjective Review of Systems Patient was examined at bedside, she reports no symptoms today. PICC line will be placed today to continue antibiotic therapy with ceftriaxone for 6 weeks. She has been accepted by [facility] but Per Kirti they can not Start care until Saturday patient can discharge after Saturday dose of IV ABx. Patient reports: No new complaints Changes from previous H/P or p: No Changes Review of Systems: HEENT:Normal, CVS:Normal, RESPIRATORY:Normal, GI:Normal, :Normal, MSK:Normal, NEURO:Normal Objective vital signs Vital Sign Date Time Temp Pulse Resp B/P (MAP) Pulse Ox O2 Delivery O2 Flow Rate FiO2 06/27/24 13:00 98.1 77 16 124/80 (95) 97 98.1 06/27/24 08:00 Room Air* 0 21 Total Intake and Output 06/26/24 06/26/24 06/27/24 15:00 23:00 07:00 Intake Total 1800 ml 240 ml Output Total 400 ml Balance 1800 ml -160 ml medications Current Medications Medications Dose Ordered Sig/Jose Route Start Time Stop Time Status Last Admin Dose Admin Sodium Chloride 1,000 ml @ 100 mls/hr Q10H IV 06/22/24 08:45 06/26/24 02:27 100 MLS/HR Acetaminophen/ Hydrocodone Bitart 1 tab Q4HP PRN PO 06/22/24 08:45 06/27/24 10:30 1 TAB Ondansetron HCl 4 mg Q4HP PRN IV 06/22/24 08:45 Docusate Sodium 100 mg BIDPRN PRN PO 06/22/24 08:45 Acetaminophen 650 mg Q6HP PRN PO 06/22/24 08:45 Mycophenolate Mofetil 1,000 mg BID PO 06/22/24 22:00 Prednisone 10 mg DAILY PO 06/23/24 10:00 Acetaminophen/ Hydrocodone Bitart 1 tab Q4HP PRN PO 06/25/24 11:45 06/26/24 15:53 1 TAB Ceftriaxone Sodium 50 ml @ 100 mls/hr DAILY@09 IV 06/26/24 09:00 Examination: GENERAL:Normal, HEENT:Normal, NECK:Normal, LUNGS:Normal, CVS:Normal, ABDOMEN:Normal, MSK:Normal, SKIN:Abnormal, NEURO:Normal, :Normal laboratory and microbiology Laboratory Tests 06/27/24 06:06 06/26/24 05:36 Test 06/27/24 06:06 Range/Units Serum Glucose 95 74-106 mg/dL Microbiology Date/Time Source Procedure Growth Status 06/23/24 12:45 Leg Right Gram Stain - Final Resulted 06/23/24 12:45 Leg Right Anaerobic Culture - Preliminary Resulted 06/23/24 12:45 Aerobic Culture - Final Proteus mirabilis Streptococcus Group A Resulted 06/21/24 21:45 Blood Blood Culture - Final NO GROWTH AFTER 5 DAYS OF INCUBATION. Complete Problem List/Assessment/Plan Problem List/Assessment/Plan #Sepsis due to cellulitis due to Proteus mirabilis/group B Streptococcus, pansensitive -admit to med surge -currently on room air - IV antibiotics, ceftriaxone daily -wound care -skin graft -podiatry consult -PICC line, today -patient will need IV antibiotics for 6 weeks. 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 #Type 2 obesity, BMI 38.7 Lifestyle modification counseling and dietary habits counseling Case discussed with Dr. Colbert Goals of care discussed with the patient for 33 minutes Code status: Full code Plan discussed with: Patient Dietary Evaluation Review Comments: 1) Juan Jose 1 pk BID 2) Continue current plan of care Expected Outcomes/Goals: Pt will meet >75% estimated needs Fu 5-7 days Date of Service: Jun 27, 2024 Billing Provider: REGGIE COLBERT MD Common Visit Codes: [id number] INP/OBS CARE(HIGH) JOSE EDUARDO AGUSTIN RESIDENT Jun 27, 2024 15:44 REGGIE COLBERT MD Jun 28, 2024 14:01
[2024-06-27] MEDS: LIDOCAINE 1% (LOCAL ANESTH.) PF 5ml SDV ID ONE (18:58)
[2024-06-27] MEDS: SODIUM CHLOR 0.9% PF (SALINE LOCK) 10ML VIAL/SYR IV SCH (22:26)
[2024-06-28 05:00] VITALS: BP 102/71; PULSE 71; RESP 20; TEMP 97.3; O2SAT 95
[2024-06-28 06:58] LABS: Basophils # (auto) 0 10 ^3/uL (0-0.2); Basophils % (auto) 0.4 % (0.0-2.0); Eosinophils # (auto) 0.2 10 ^3/uL (0-0.8); Eosinophils % (auto) 3.2 % (0.0-7.0); Hematocrit 35.3 % (36.0-46.0); Hemoglobin 11.7 g/dL (12.2-16.2); Lymphocytes # (auto) 2.3 10 ^3/uL (0.4-5.4); Lymphocytes % (auto) 45.4 % (10.0-50.0); Mean Corpuscular Hemoglobin 28.3 pg (28.0-32.0); Mean Corpuscular Hgb Conc. 33.1 g/dL (32.0-36.0); Mean Corpuscular Volume 85.7 fL (80.0-100.0); Monocytes # (auto) 0.6 10 ^3/uL (0-1.3); Monocytes % (auto) 10.7 % (0.0-12.0); Neutrophils # (auto) 2.1 10 ^3/uL (1.6-8.6); Neutrophils % (auto) 40.3 % (37.0-80.0); Nucleated Red Blood Cells % 0.3 %; Platelet Count (auto) 223 10^3/uL (140-450); Red Blood Cells 4.11 10^6/uL (4.0-5.20); Red Cell Distribution Width 14.4 % (11.8-14.3); White Blood Cell 5.1 10^3/uL (4.4-10.8)
[2024-06-28 07:07] LABS: Anion Gap 9 (5-15); Carbon Dioxide 23 mmol/L (20-31); Potassium 3.9 mmol/L (3.5-5.1); Sodium 139 mmol/L (136-145)
[2024-06-28 07:09] LABS: Calcium 9.6 mg/dL (8.7-10.4)
[2024-06-28 07:10] LABS: Chloride 107 mmol/L (98-107)
[2024-06-28 07:13] LABS: Glucose 95 mg/dL (74-106)
[2024-06-28 07:14] LABS: BUN/Creatinine Ratio 20.5 (10.0-20.0); Blood Urea Nitrogen 15 mg/dL (9-23)
[2024-06-28 08:00] VITALS: PULSE 66; RESP 18; O2SAT 98
[2024-06-28 09:00] VITALS: BP 124/65; PULSE 72; RESP 18; TEMP 98; O2SAT 95
[2024-06-28 13:46] VITALS: BP 116/81; PULSE 74; RESP 16; TEMP 97.5; O2SAT 98
--- NOTE | 2024-06-28 13:47 | DVHDSRES ---
Discharge Summary Date of Admission Resident Creating Document: PRITI LONG RESIDENT Jun 22, 2024 at 08:35 Date of Discharge: Jun 28, 2024 Admitting Diagnosis Non-healing ulcer of lower leg, Lupus, Wounds: Right lower extremity below the knee Labs/Diagnostic Data: Laboratory Results Test 06/28/24 06:15 06/26/24 12:56 06/24/24 17:57 06/23/24 05:56 White Blood Count 5.1 10^3/uL (4.4-10.8) Red Blood Count 4.11 10^6/uL (4.0-5.20) Hemoglobin 11.7 g/dL (12.2-16.2) Hematocrit 35.3 % (36.0-46.0) Mean Corpuscular Volume 85.7 fL (80.0-100.0) Mean Corpuscular Hemoglobin 28.3 pg (28.0-32.0) Mean Corpuscular Hemoglobin Concent 33.1 g/dL (32.0-36.0) Red Cell Distribution Width 14.4 % (11.8-14.3) Platelet Count 223 10^3/uL (140-450) Mean Platelet Volume 8.7 fL (6.9-10.8) Neutrophils (%) (Auto) 40.3 % (37.0-80.0) Lymphocytes (%) (Auto) 45.4 % (10.0-50.0) Monocytes (%) (Auto) 10.7 % (0.0-12.0) Eosinophils (%) (Auto) 3.2 % (0.0-7.0) Basophils (%) (Auto) 0.4 % (0.0-2.0) Neutrophils # (Auto) 2.1 10 ^3/uL (1.6-8.6) Lymphocytes # (Auto) 2.3 10 ^3/uL (0.4-5.4) Monocytes # (Auto) 0.6 10 ^3/uL (0-1.3) Eosinophils # (Auto) 0.2 10 ^3/uL (0-0.8) Basophils # (Auto) 0 10 ^3/uL (0-0.2) Nucleated Red Blood Cells 0.3 % Sodium Level 139 mmol/L (136-145) Potassium Level 3.9 mmol/L (3.5-5.1) Chloride Level 107 mmol/L (98-107) Carbon Dioxide Level 23 mmol/L (20-31) Anion Gap 9 (5-15) Blood Urea Nitrogen 15 mg/dL (9-23) Creatinine 0.73 mg/dL (0.550-1.02) Glomerular Filtration Rate Calc 109 mL/min (>90) BUN/Creatinine Ratio 20.5 (10.0-20.0) Serum Glucose 95 mg/dL (74-106) Calcium Level 9.6 mg/dL (8.7-10.4) Prothrombin Time 10.8 sec (9.3-11.8) Prothrombin Time INR 1.02 (0.9-1.15) Activated Partial Thromboplast Time 27.3 SEC (24.5-34.5) Vancomycin Level Trough 15.3 ug/mL (5-10) Total Bilirubin 0.5 mg/dL (0.2-1.0) Aspartate Amino Transferase (AST) 19 U/L (13-40) Alanine Aminotransferase (ALT) 15 U/L (7-40) Alkaline Phosphatase 73 U/L (46-116) Total Protein 7.5 g/dL (5.7-8.2) Albumin 3.7 g/dL (3.2-4.8) Beta HCG, Quantitative 0.5 mIU/mL (1.5-4.2) Test 06/22/24 21:29 06/21/24 21:45 Urine Color Light-yellow (Yellow) Urine Clarity Clear (Clear) Urine pH 8.0 (5.0-9.0) Urine Specific [place] 1.010 (1.001-1.035) Urine Protein 2+ (Negative) Urine Ketones Negative (Negative) Urine Blood Negative /uL (Negative) Urine Nitrite Negative (Negative) Urine Bilirubin Negative (Negative) Urine Urobilinogen Normal mg/dL (Negative) Urine Leukocyte Esterase Negative /uL (Negative) Urine RBC 3 /hpf (0 - 4) Urine Microscopic WBC 5 /HPF (0-5) Urine Squamous Epithelial Cells Few /hpf (<5) Urine Bacteria Few /hpf (None Seen) Urine Glucose 1+ mg/dL (Normal) Lactic Acid Level 0.7 mmol/L (0.4-2.0) Other Laboratory Tests 06/28/24 06:15 Brief Hx & Hospital Course: HPI Abel Mejíad C is a [id number]-old female with past medical history of Lupus who is taking chronic steroids, comes in with complaints of pain to non- healing wound to her right lower extremity. Patient states the wound began about 6 years ago from a dog bite, it started out small and has increased over the years. She has home health that comes and cleans the wound and changes the dressing. There is yellow sluff covering the entire wound, and she states it is yellow due to the cream home health placed on it. She also states that she is scheduled for a skin graft on the , but she ran out of her pain medicine a few days ago and came in because she can not stand the pain. Brief Hospital course Patient sent to the hospital with a chief complaint pain in the right lower extremity due to a nonhealing wound. Podiatry were consulted who performed right lower leg wound bed preparation for graft and right leg application of graft. While in the hospitalization patient was given IV antibiotics initially be covered with vancomycin and Zosyn. Cultures from the right lower wound was sent and sensitivities for back which showed that the bacteria was sensitive to ceftriaxone. Patient is being discharged with IV ceftriaxone 1 g daily for 6 weeks Discharge plan Follow up with the primary care provider i and the discharge clinic in 1 week. Antibiotics to be delivered home tomorrow and patient has been accepted by home health services Consults/Reason for consult Podiatry consult for right lower extremity nonhealing ulcer Operations or Procedures Right lower extremity CT FINDINGS: The alignment is normal. The joint spaces are normal. There is no fracture, dislocation, or focal osseous lesions. Loss of soft tissues from 9-3 o'clock anteriorly to the right tibia. There is no epidermis or subcutaneous fat. All all soft tissues radiographically have been removed to the muscle layer. IMPRESSION: 1. Loss of epidermis and subcutaneous fat to the muscle mass in the area of wound in the mid tibia and fibula on the right. 2. No acute fractures 3. If osteomyelitis is of clinical concern recommend MRI. Right leg wound with the patient for graft Right leg application of graft Report Details Date: 06/23/24 Preop Diagnosis: 1. Right leg nonhealing ulcer 2. Right leg cellulitis 3. Right leg open wound Postop Diagnosis: Same as preop Surgeon: Ruben Avery MD Anesthesiologist: See anesthesia Anesthesia: General Consent: The patient was informed of the risks and benefits of the procedure. These include but are not limited to complications of anesthesia, postoperative infection, incomplete relief of symptoms, recurrence of symptoms, damage to blood vessels, nerves and tendons, deep venous thrombosis, pulmonary embolism and possible need for repeat surgery in the future. Complications: None Estimated Blood Loss: Minimal Fluids: See anesthesia Findings: Consistent with diagnosis Indications for Surgery: Worsening right leg wound Name of Procedure Performed 1. Right leg wound bed preparation for graft (87748) 2. Right leg application of graft ([id number]) Procedure Details Procedure Details: PRE-PROCEDURE INFORMATION: In the pre-op holding area, the extremity to be operated on was clearly marked and the patient verified correct laterality of the marking. The patient was transferred to the OR table and placed in a supine position. A timeout was performed in which identification of the correct patient, procedure, location, and materials was done. The right foot and leg were prepped and draped in normal sterile fashion. DESCRIPTION OF PROCEDURE: Attention was directed to the right anterior leg where the wound was noted.. An incision was made over this area and was deepened through blunt dissection. Using a rongeur and curette, the wound bed was then prepped for application of graft. All of the fibrotic and necrotic material was removed at that point. Cultures were taken of the wound. After the wound was prepped for graft, the area was irrigated with 3 L normal saline using cysto tubing. The dermal graft 10 x 12 cm Integra graft was then applied to the right leg. The graft was then adhered to the wound with a staple gun. The wound was then dressed with Xeroform, 4x4s, ABD, Webril, Pako bandage. POSTOPERATIVE INFORMATION: The patient tolerated the above noted procedure and anesthesia well and was transferred to the PACU with vital signs stable, and vascular status intact with capillary refill intact to all digits. Patient will return to the floor and continue IV antibiotics. Patient will need dressing changes every other day to evaluate the graft. Patient will need IV antibiotics to help with the cellulitis around the wound. We will perform dressing changes on to evaluate the graft. 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 status post incision and drainage and skin graft placement #History of systemic lupus erythematosus #Normocytic normochromic anemia #Chronic back pain #Type 2 obesity, BMI 38.7 Discharge Disposition: Home with Health Services Discharge Instruct/Medications Diet: Regular Activity: No Restrictions, As Tolerated Follow Up/Referral: Follow up in the d/c clinic in one week Follow up with the PCP in one week Medications: as per EMR continue home medications for lupus Discharge Statement: "Patient was advised to return to the ER or call 911 if any headaches, dizziness, shortness of breath, chest pain, abdominal pain, bleeding, fevers, or worsening of medical condition. Patient was counseled about treatment plan, medications, possible side effects, patientverbalized understanding. All questions were answered to the best of my ability. 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
== END 2024-06-28 14:40 | disposition home or self-care (01) | DRG 710 ==
LOC: ER 21:14 → OVERFLOW 06-22 08:35 → EAST 06-22 22:27
PROVIDERS: ADMIT Internal Medicine; ATTEND Internal Medicine
PROC: 0HRKXK3 Replacement of Right Lower Leg Skin with Nonautologous Tissue Substitute, Full Thickness, External Approach (ICD-10-PCS; principal; 2024-06-23 12:18)
PROC: 02HV33Z Insertion of Infusion Device into Superior Vena Cava, Percutaneous Approach (ICD-10-PCS; 2024-06-27)
PROC: B548ZZA Ultrasonography of Superior Vena Cava, Guidance (ICD-10-PCS; 2024-06-27)
PROC: 0JDN0ZZ Extraction of Right Lower Leg Subcutaneous Tissue and Fascia, Open Approach (ICD-10-PCS; 2024-06-27)
DX: A41.9 Sepsis, unspecified organism (principal); E11.622 Type 2 diabetes mellitus with other skin ulcer; L97.819 Non-pressure chronic ulcer of other part of right lower leg with unspecified severity; M32.9 Systemic lupus erythematosus, unspecified; L03.115 Cellulitis of right lower limb; S81.801A Unspecified open wound, right lower leg, initial encounter; D64.9 Anemia, unspecified; B95.1 Streptococcus, group B, as the cause of diseases classified elsewhere; B96.4 Proteus (mirabilis) (morganii) as the cause of diseases classified elsewhere; E66.9 Obesity, unspecified; M54.9 Dorsalgia, unspecified; Z79.52 Long term (current) use of systemic steroids; Z83.3 Family history of diabetes mellitus; Z79.899 Other long term (current) drug therapy; Z68.38 Body mass index [BMI] 38.0-38.9, adult
CPT/HCPCS: 36415; 36556; 73700; 76937; 80048; 80053; 80202; 81001; 82565; 83605; 84702; 85025; 85610; 85730; 87040; 87070; 87075; 87077; 87186; 87205; 96365; 96375; G0378; J0131; J1100; J2405; J2543; J2704; J3490; J7517; Q4118

== ENCOUNTER 2024-12-04 13:08 | Emergency (ER) | payer MEDICAID ==
[~2024-12-04] VITALS: Ht 175.3 cm; Wt 111.4 kg
[~2024-12-04 13:08] MED LIST changes: -AMPI500C9 PO; +IBUP-1455 PO; -PRED5PAK2
--- NOTE | 2024-12-04 13:51 | ED.PDOC ---
History of Present Illness(SKN HPI Comments 39-year-old female with a history of lupus presents to the emergency department with a chief complaint of a wound check to the right lower extremity. Patient states that she has had this wound for the past six years, but noticed it reopened and started bleeding earlier this afternoon during and in-home health of visit. Patient states that she recently received a skin graft on the 23 of June. Patient notes of the wound was caused by a spider bite, but has been refusing to heal. No notable infection, foreign body, in proper dressing was administered. Patient denies any nausea, vomiting, diarrhea, chest pain, abdominal pain, recent sick contact, recent travel, or any other associated symptoms, modifiers with this time. Chief Complaint: Wound Check Time Seen by MD: 13:48 Primary Care Provider: ALEXA History of Present Illness: Nurses Notes, Medications, Allergies Allergies: Coded Allergies: NO KNOWN ALLERGIES (Unverified , 09/30/10) Home Meds Active Scripts Hydrocodone-Acetaminophen (Hydrocodone/Acetaminophen 10-325 mg) 1 Tab Tab, 1 TAB PO QID PRN, #30 TAB Prov:SERGIO PICHARDO MD 04/22/24 Reported Medications Ibuprofen Micronized (Ibuprofen) 800 Mg Tab, 800 MG PO, TAB 06/22/24 Information Source: Patient Mode of Arrival: Ambulatory Severity: Moderate Timing: Hours Duration: Since onset, Hours Prehospital treatment: None Location: Leg Mechanism: Spontaneous Onset Object: None Condition of Object: None Retained Foreign Body: No Wound Type: None Tetanus: Unknown History of: None Associated Signs and Symptoms: None Past Medical History PAST MEDICAL HISTORY: DM Past Medical History (Other): Lupus Surgical History: Denies all surgeries AUTOMATIC PACKER OPERATOR History: No Pertinent AUTOMATIC PACKER OPERATOR History Family History Family History: Reviewed,noncontributory to illness, No family hx of Cancer, No family hx of DM, No family hx of Heart liza, No family hx of HTN, No family hx ofKidney liza, No family hx of Liver liza, No family hx of Lung liza, No family hx of Stroke Social History Smoker: Non-Smoker Alcohol: Denies ETOH Use Drugs: Denies Drug Use Lives In: Home Constitutional: denies: chills, diaphoresis, fatigue, fever, malaise, sweats, weakness, others EENTM: denies: blurred vision, double vision, ear bleeding, ear discharge, ear drainage, ear pain, ear ringing, eye pain, eye redness, hearing loss, mouth pain, mouth swelling, nasal discharge, nose bleeding, nose congestion, nose pain, photophobia, tearing, throat pain, throat swelling, voice changes, others Respiratory: denies: cough, hemoptysis, orthopnea, SOB at rest, shortness of breath, SOB with excertion, stridor, wheezing, others Cardiovascular: denies: chest pain, dizzy spells, diaphoresis, Dyspnea on exertion, edema, irregular heart beat, left arm pain, lightheadedness, palpitations, PND, syncope, others Gastrointestinal: denies: abdomen distended, abdominal pain, blood streaked bowels, constipated, diarrhea, dysphagia, difficulty swallowing, hematemesis, melena, nausea, poor appetite, poor fluid intake, rectal bleeding, rectal pain, vomiting, others Genitourinary: denies: abnormal vagina bleeding, burning, dyspareunia, dysuria, flank pain, frequency, hematuria, incontinence, pain, , vagina discharge, urgency, others Neurological: denies: dizziness, fainting, headache, left sided numbness, left sided weakness, numbness, paresthesia, pre-existing deficit, right sided numbness, right sided weakness, seizure, speech problems, tingling, tremors, weakness, others Musculoskeletal: denies: back pain, gout, joint pain, joint swelling, muscle pain, muscle stiffness, neck pain, others Integumetry: reports: wounds; denies: bruises, change in color, change in hair/nails, dryness, laceration, lesions, lumps, rash, others Allergic/Immunocompromised: denies: Difficulty Healing, Frequent Infections, Hives, Itching, others Hematologic/Lymphatic: denies: anemia, blood clots, easy bleeding, easy bruising, swollen glands, others Endocrine: denies: excessive hunger, excessive sweating, excessive thirst, excessive urination, flushing, intolerance to cold, intolerance to heat, unexplained weight gain, unexplained weight loss, others Psychiatric: denies: anxiety, bipolar disorder, depression, hopeless, panic disorder, schizophrenia, sleepless, suicidal, others All Other Systems: Reviewed and Negative Physical Exam General Appearance: Moderate Distress, Normal HEENT: Normal ENT Inspection, Pharynx Normal, TMs Normal Neck: Full Range of Motion, Non-Tender, Normal, Normal Inspection Respiratory: Chest Non-Tender, Lungs Clear, No Accessory Muscle Use, No Respiratory Distress, Normal Breath Sounds Cardiovascular: No Edema, No JVD, No Murmur, No Gallop, Normal Peripheral Pulses, Regular Rate/Rhythm Breast Exam: Deferred Gastrointestinal: No Organomegaly, Non Tender, No Pulsatile Mass, Normal Bowel Sounds, Soft Genitalia: Deferred Pelvic: Deferred Rectal: Deferred Extremities: No calf tenderness, Normal capillary refill, Normal inspection, Normal range of motion, Non-tender, No pedal edema Musculoskeletal : Apperance: Normal Neurologic: Alert, molecular modeler II-XII nml as Tested, No Motor Deficits, Normal Affect, Normal Mood, No Sensory Deficits Cerebellar Function: NOT DONE Reflexes: NOT DONE Skin: Dry, Normal Color, Warm, Wounds (Right lower extremity surgical wound) Peripheral Pulses: 3+ Radial (R), 3+ Radial (L) Lymphatic: No Adenopathy Was a procedure done? Was a procedure done?: No Differential Diagnosis (INTG) Differential Diagnosis: Abrasion, Cellulitis, Insect Envenomation Differential Diagnosis: Cellulitis, Contact Dermatitis, Erythema multiforme Differential Diagnosis: Abrasion, Cellulitis, Lacerations, Neurovascular Injury Abscess: Bacteremia, Cellulitis Differential Diagnosis: Cellulitis, Laceration, Puncture Wound X-Ray, Labs, Meds, VS Vital Signs Date Time Temp Pulse Resp B/P (MAP) Pulse Ox O2 Delivery O2 Flow Rate FiO2 12/04/24 13:12 97.9 100 18 143/76 98 97.9 Patient alert. Vitals stable. Has a surgical wound from June on right lower extremity. Answering all questions Heart rate within normal limits. Saturation pristine on room air Respiratory rate within normal limits. No shortness a breath. No chest pain. Called her conventional underwriter office. He was not in the office. Explained to the patient that she will need to follow up with him. No active bleeding. Wound looks nice and clean. No sign of infection. Explained to the patient that lupus healing takes a long time. Was told to follow up with her primary care physician. Was told to come back if there is any problem. Time of 1ST Reevaluation: 14:18 Reevaluation 1ST: Improved Patient Education/Counseling: Diagnosis, Treatment, Need For Follow Up Family Education/Counseling: No Family Present SEPSIS Sepsis Screen Date sepsis recognized/suspect: Dec 04, 2024 Time Sepsis recognized/suspect: 1317 Recent Procedure: No On Antibiotic Therapy: No Respiratory Rate >20: No Heart Rate >90: No Temp<36 C (96.8 F) or >38.3 C: No SBP <90 or MAP <65 mmHG: No New Acute Mental Status Change: No Is the patient on CPAP, BIPAP,: No Physician Orders *Podiatry Consult Bennie([facility]) (12/04/24 14:38) Vital Signs Date Time Temp Pulse Resp B/P (MAP) Pulse Ox O2 Delivery O2 Flow Rate FiO2 12/04/24 13:12 97.9 100 18 143/76 98 97.9 Departure 1 Departure Time of Disposition: 15:47 Impression: Primary Impression: Chronic wound Additional Impression: History of systemic lupus erythematosus Disposition: 01 HOME / SELF CARE / HOMELESS Condition: Good Discharged With: Self Critical Care Note Critical Care Time?: No Stability Stability form required: No Heart Score Heart Score: Heart Score Response (Comments) Value History N/A 0 EKG N/A 0 Age N/A 0 Risk Factors N/A 0 Troponin N/A 0 Total 0 I personally scribed for TEVIN DOZIER MD ([email or web address]) on 12/04/24 at 13:51. Electronically submitted by Ross Rose ([email or web address]). TEVIN DOZIER MD Dec 04, 2024 13:51
[2024-12-04 17:52] VITALS: BP 130/68; PULSE 69; RESP 17; TEMP 98.1; O2SAT 100
[2024-12-04] MEDS: HYDROcodone-ACET 10/325MG TAB PO ONE (17:58)
== END 2024-12-04 17:55 | disposition home or self-care (01) ==
LOC: ER 13:08
DX: M32.9 Systemic lupus erythematosus, unspecified (principal); E11.9 Type 2 diabetes mellitus without complications; Z48.00 Encounter for change or removal of nonsurgical wound dressing; Z79.899 Other long term (current) drug therapy

== ENCOUNTER 2024-12-15 07:34 | Inpatient (IN) | payer MEDICAID ==
[~2024-12-15] VITALS: Ht 170.2 cm; Wt 114.3 kg
--- NOTE | 2024-12-15 08:08 | ED.PDOC ---
Musculoskeletal HPI Comments This is a 39 year old female presenting to the ED with chief complaint of wound check. Patient reports that she has had a chronic right lower leg wound for a few months now due to initially being bit by a spider according to her thoracic surgeon Dr. Avery. Patient relays that she was seen 2 weeks ago for her wound spontaneously bleeding, however that had resolved until this yesterday when getting something out of her car, the wound started bleeding again. Patient states that she wrapped it yesterday, but this morning she woke up with her bed sheets being covered in blood due to her wrapping being saturated. Patient notes she has not contacted Dr. Avery regarding today's issue yet. Patient denies any numbness, weakness, tingling, SOB, chest pain, fever, or chills. Chief Complaint: Wound Check Time Seen by MD: 08:04 Primary Care Provider: ALEXA King Notes: Nurses Notes, Medications, Allergies Allergies: Coded Allergies: Doxycycline (Verified Allergy, Unknown, 12/15/24) Home Meds Active Scripts Hydrocodone-Acetaminophen (Hydrocodone/Acetaminophen 10-325 mg) 1 Tab Tab, 1 TAB PO QID PRN, #30 TAB Prov:SERGIO PICHARDO MD 04/22/24 Reported Medications Ibuprofen Micronized (Ibuprofen) 800 Mg Tab, 800 MG PO, TAB 06/22/24 Information Source: Patient Mode of Arrival: Ambulatory Location: Right Extremity Location: Leg Timing: Months Prehospital treatment: None Severity: Moderate Able to Move Extremity: Yes Bear Weight: Limited Pain: Moderate Mechanism: Other (Spider bite) Circumstances: Preceding Wound Onset of Symptoms: Spontaneous Symptoms: Swelling, Pain, Erythema DVT Risk Factors: Recent surgery Last Tetanus: Unknown Past Medical History PAST MEDICAL HISTORY: DM Past Medical History (Other): Lupus Surgical History: Surgical History (Other): Skin graft CLINICAL BUSINESS ANALYST History: No Pertinent CLINICAL BUSINESS ANALYST History Family History Family History: Reviewed,noncontributory to illness, No family hx of Heart liza, No family hx of HTN, No family hx ofKidney liza, No family hx of Liver liza, No family hx of Lung liza, No family hx of Stroke, Family hx of DM, Family hx of Cancer Social History Smoker: Non-Smoker Alcohol: Denies ETOH Use Drugs: Denies Drug Use Lives In: Home Constitutional: denies: chills, diaphoresis, fatigue, fever, malaise, sweats, weakness, others EENTM: denies: blurred vision, double vision, ear bleeding, ear discharge, ear drainage, ear pain, ear ringing, eye pain, eye redness, hearing loss, mouth pain, mouth swelling, nasal discharge, nose bleeding, nose congestion, nose pain, photophobia, tearing, throat pain, throat swelling, voice changes, others Respiratory: denies: cough, hemoptysis, orthopnea, SOB at rest, shortness of breath, SOB with excertion, stridor, wheezing, others Cardiovascular: denies: chest pain, dizzy spells, diaphoresis, Dyspnea on exertion, edema, irregular heart beat, left arm pain, lightheadedness, palpitations, PND, syncope, others Gastrointestinal: denies: abdomen distended, abdominal pain, blood streaked bowels, constipated, diarrhea, dysphagia, difficulty swallowing, hematemesis, m kaci, nausea, poor appetite, poor fluid intake, rectal bleeding, rectal pain, vomiting, others Genitourinary: denies: abnormal vagina bleeding, burning, dyspareunia, dysuria, flank pain, frequency, hematuria, incontinence, pain, , vagina discharge, urgency, others Neurological: denies: dizziness, fainting, headache, left sided numbness, left sided weakness, numbness, paresthesia, pre-existing deficit, right sided numbness, right sided weakness, seizure, speech problems, tingling, tremors, weakness, others Musculoskeletal: denies: back pain, gout, joint pain, joint swelling, muscle pain, muscle stiffness, neck pain, others Integumetry: reports: wounds (to right lower leg with bleeding); denies: bruises, change in color, change in hair/nails, dryness, laceration, lesions, lumps, rash, others Allergic/Immunocompromised: denies: Difficulty Healing, Frequent Infections, Hives, Itching, others Hematologic/Lymphatic: denies: anemia, blood clots, easy bleeding, easy bruising, swollen glands, others Endocrine: denies: excessive hunger, excessive sweating, excessive thirst, excessive urination, flushing, intolerance to cold, intolerance to heat, unexplained weight gain, unexplained weight loss, others Psychiatric: denies: anxiety, bipolar disorder, depression, hopeless, panic disorder, schizophrenia, sleepless, suicidal, others All Other Systems: Reviewed and Negative Physical Exam General Appearance: Moderate Distress HEENT: Normal ENT Inspection, Pharynx Normal, TMs Normal Neck: Full Range of Motion, Non-Tender, Normal, Normal Inspection Respiratory: Chest Non-Tender, Lungs Clear, No Accessory Muscle Use, No Respiratory Distress, Normal Breath Sounds Cardiovascular: No Edema, No JVD, No Murmur, No Gallop, Normal Peripheral Pulses, Regular Rate/Rhythm Breast Exam: Deferred Gastrointestinal: No Organomegaly, Non Tender, No Pulsatile Mass, Normal Bowel Sounds, Soft Genitalia: Deferred Pelvic: Deferred Rectal: Deferred Extremities: No calf tenderness, Normal capillary refill, No pedal edema Musculoskeletal : Apperance: Normal Neurologic: Alert, custody officer II-XII nml as Tested, No Motor Deficits, Normal Affect, Normal Mood, No Sensory Deficits Cerebellar Function: Normal Reflexes: Normal Skin: Dry, Normal Color, Warm, Other (Open wound to the right lower extremity with some drainage and redness) Lymphatic: No Adenopathy Was a procedure done? Was a procedure done?: No Differential Diagnosis EXT Differential Diagnosis: Cellulitis X-Ray, Labs, Meds, VS Vital Signs Date Time Temp Pulse Resp B/P (MAP) Pulse Ox O2 Delivery O2 Flow Rate FiO2 12/15/24 07:35 98.7 63 18 134/94 98 98.7 Lab Test 12/15/24 08:03 Range/Units White Blood Count 5.9 4.4-10.8 10^3/uL Red Blood Count 3.58 L 4.0-5.20 10^6/uL Hemoglobin 10.6 L 12.2-16.2 g/dL Hematocrit 31.9 L 36.0-46.0 % Mean Corpuscular Volume 89.3 80.0-100.0 fL Mean Corpuscular Hemoglobin 29.7 28.0-32.0 pg Mean Corpuscular Hemoglobin Concent 33.2 32.0-36.0 g/dL Red Cell Distribution Width 20.6 H 11.8-14.3 % Platelet Count 197 140-450 10^3/uL Mean Platelet Volume 8.4 6.9-10.8 fL Neutrophils (%) (Auto) 50.3 37.0-80.0 % Lymphocytes (%) (Auto) 37.0 10.0-50.0 % Monocytes (%) (Auto) 9.6 0.0-12.0 % Eosinophils (%) (Auto) 2.8 0.0-7.0 % Basophils (%) (Auto) 0.3 0.0-2.0 % Neutrophils # (Auto) 3.0 1.6-8.6 10 ^3/uL Lymphocytes # (Auto) 2.2 0.4-5.4 10 ^3/uL Monocytes # (Auto) 0.6 0-1.3 10 ^3/uL Eosinophils # (Auto) 0.2 0-0.8 10 ^3/uL Basophils # (Auto) 0 0-0.2 10 ^3/uL Nucleated Red Blood Cells 0.1 % Sodium Level 142 136-145 mmol/L Potassium Level 3.9 3.5-5.1 mmol/L Chloride Level 110 H 98-107 mmol/L Carbon Dioxide Level 23 20-31 mmol/L Anion Gap 9 5-15 Blood Urea Nitrogen 14 9-23 mg/dL Creatinine 0.94 0.550-1.02 mg/dL Glomerular Filtration Rate Calc 80 >90 mL/min BUN/Creatinine Ratio 14.9 10.0-20.0 Serum Glucose 97 74-106 mg/dL Calcium Level 9.2 8.7-10.4 mg/dL IV Hep-Lock was established The CBC is within normal limits The chemistry panel is within normal limits A podiatry consult is being obtained. The wound continues to be open and there is a concern of pending infection as well as continued bleeding The patient is being admitted at this time Time of 1ST Reevaluation: 12:44 Reevaluation 1ST: Unchanged Patient Education/Counseling: Diagnosis, Treatment, Prognosis Family Education/Counseling: No Family Present Departure 1 Departure Time of Disposition: 12:44 Impression: Primary Impression: Open leg wound Qualified Codes: S81.801A - Unspecified open wound, right lower leg, initial encounter Additional Impression: History of systemic lupus erythematosus Disposition: ADMITTED INPATIENT Admit to: Med Surg Condition: Fair Critical Care Note Critical Care Time?: No Stability Stability form required: Yes Unstable for transfer: ED Physician Assesment (Clinical assesment) Heart Score Heart Score: Heart Score Response (Comments) Value History N/A 0 EKG N/A 0 Age N/A 0 Risk Factors N/A 0 Troponin N/A 0 Total 0 I personally scribed for DEDE HUNT MD ([email or web address]) on 12/15/24 at 08:08. Electronically submitted by Ruben España ([email or web address]). DEDE HUNT MD Dec 15, 2024 08:08
[2024-12-15 08:23] LABS: Hematocrit 31.9 % (36.0-46.0); Hemoglobin 10.6 g/dL (12.2-16.2); Mean Corpuscular Hemoglobin 29.7 pg (28.0-32.0); Mean Corpuscular Volume 89.3 fL (80.0-100.0); Nucleated Red Blood Cells % 0.1 %
[2024-12-15 08:36] LABS: Potassium 3.9 mmol/L (3.5-5.1); Sodium 142 mmol/L (136-145)
[2024-12-15 08:37] LABS: Anion Gap 9 (5-15); Calcium 9.2 mg/dL (8.7-10.4); Carbon Dioxide 23 mmol/L (20-31)
[2024-12-15 08:42] LABS: BUN/Creatinine Ratio 14.9 (10.0-20.0); Blood Urea Nitrogen 14 mg/dL (9-23); Glucose 97 mg/dL (74-106)
[2024-12-15 08:45] LABS: Chloride 110 mmol/L (98-107)
[2024-12-15] MEDS ORDERED: ACETAMINOPHEN 325 MG TAB PO PRN (13:45)
[2024-12-15] MEDS: SODIUM CHLOR 0.9% PF (SALINE LOCK) 10ML VIAL/SYR IV SCH (15:43)
[2024-12-15 15:50] LABS: Alanine Aminotransferase 18.0 U/L (7-40); Alkaline Phosphatase 94.0 U/L (46-116); Magnesium 1.9 mg/dL (1.6-2.6); Total Protein 7.7 g/dL (5.7-8.2)
[2024-12-15 15:51] LABS: Albumin 4.2 g/dL (3.2-4.8); Bilirubin, Direct 0.1 mg/dL (<0.3); Bilirubin, Total 0.4 mg/dL (0.2-1.0)
[2024-12-15 15:54] VITALS: PULSE 77; RESP 17; O2SAT 97
--- NOTE | 2024-12-15 15:58 | DVHHPRES ---
History of Present Illness Resident Creating Document: SELENA OJEDA RESIDENT History of Present Illness Precious Mejía a 39-year-old female with a PMH of lupus presented to the ED with the chief complaints of bleeding of chronic nonhealing right leg wound for 2 days. Patient reported she had wound problem over 6 years with a failed graft, patient also states that residential lawn specialist initially did not know what the cause of wound leading to multiple tests but in April she was diagnosed as spider bite, performed skin graft, about 2 weeks ago patient came to the hospital due to bleeding from the wound. Again wound started bleeding since today's, heavy bleeding, stating after grabbing it up and elevating leg the bleeding stopped however upon waking moaning patient found the bed full of blood so decided to visit ED. patient also reported having severe pain rating it 9/10. Patient has been on and off on image related for for 4 months patient also have home health nurse who comes to clean the wound every other day. PMH: SLE PSH: Skin graft Family history: Noncontributory Personal history: Lives at home. Quit smoking 2 months back med no other drug abuse Allergies: Doxycycline Home medications: Ibuprofen, linezolid Patient seen and examined at the bedside. wound is there on right lower leg, no bleeding noted at this time. Ordered wound consult and wound culture. Consulted with surgeon for evaluation. Review of Systems Skin: Other (Chronic nonhealing right lower extremity wound/ulcer with bleeding being stopped) Allergies: Coded Allergies: Doxycycline (Verified Allergy, Unknown, 12/15/24) Medications Current Medications Medications Dose Ordered Sig/Jose Route Start Time Stop Time Status Last Admin Dose Admin Sodium Chloride 10 ml Q8HR IV 12/15/24 14:00 Acetaminophen 325 mg Q4HP PRN PO 12/15/24 13:45 Acetaminophen/ Hydrocodone Bitart 1 tab Q4HP PRN PO 12/15/24 13:45 Ondansetron HCl 4 mg Q4HP PRN IV 12/15/24 13:45 Exam Vital Signs Vital Signs Date Time Temp Pulse Resp B/P (MAP) Pulse Ox O2 Delivery O2 Flow Rate FiO2 12/15/24 07:35 98.7 63 18 134/94 98 98.7 Exam Pt is lying on bed General Appearance: Alert, Oriented X3, Cooperative, Not in acute distress HEENT: Atraumatic, Mucous membranes moist/pink Respiratory: Clear to auscultation, Normal air movement, No added sounds Cardiovascular: Regular rate, Normal S1, Normal S2, No murmurs Abdominal: Active bowel sounds, Soft, no distention, no tenderness Extremities: right lower leg ulcer, nonhealing with the granulation tissue, no bleeding noted size approximately 5 x 10 cm Skin: As above Neuro: Normal speech, sensorimotor deficits none Psych/Mental Status: Mental status NL, Mood NL Nurse was there as psych arnp during examination Labs/Xrays Labs Test 12/15/24 15:15 12/15/24 08:03 Range/Units White Blood Count 5.9 4.4-10.8 10^3/uL Red Blood Count 3.58 L 4.0-5.20 10^6/uL Hemoglobin 10.6 L 12.2-16.2 g/dL Hematocrit 31.9 L 36.0-46.0 % Mean Corpuscular Volume 89.3 80.0-100.0 fL Mean Corpuscular Hemoglobin 29.7 28.0-32.0 pg Mean Corpuscular Hemoglobin Concent 33.2 32.0-36.0 g/dL Red Cell Distribution Width 20.6 H 11.8-14.3 % Platelet Count 197 140-450 10^3/uL Mean Platelet Volume 8.4 6.9-10.8 fL Neutrophils (%) (Auto) 50.3 37.0-80.0 % Lymphocytes (%) (Auto) 37.0 10.0-50.0 % Monocytes (%) (Auto) 9.6 0.0-12.0 % Eosinophils (%) (Auto) 2.8 0.0-7.0 % Basophils (%) (Auto) 0.3 0.0-2.0 % Neutrophils # (Auto) 3.0 1.6-8.6 10 ^3/uL Lymphocytes # (Auto) 2.2 0.4-5.4 10 ^3/uL Monocytes # (Auto) 0.6 0-1.3 10 ^3/uL Eosinophils # (Auto) 0.2 0-0.8 10 ^3/uL Basophils # (Auto) 0 0-0.2 10 ^3/uL Nucleated Red Blood Cells 0.1 % Sodium Level 142 136-145 mmol/L Potassium Level 3.9 3.5-5.1 mmol/L Chloride Level 110 H 98-107 mmol/L Carbon Dioxide Level 23 20-31 mmol/L Anion Gap 9 5-15 Blood Urea Nitrogen 14 9-23 mg/dL Creatinine 0.94 0.550-1.02 mg/dL Glomerular Filtration Rate Calc 80 >90 mL/min BUN/Creatinine Ratio 14.9 10.0-20.0 Serum Glucose 97 74-106 mg/dL Hemoglobin A1c 5.6 <5.7 % A1C Calcium Level 9.2 8.7-10.4 mg/dL Magnesium Level 1.9 1.6-2.6 mg/dL Total Bilirubin 0.4 0.2-1.0 mg/dL Direct Bilirubin 0.1 <0.3 mg/dL Aspartate Amino Transferase (AST) 18 13-40 U/L Alanine Aminotransferase (ALT) 18 7-40 U/L Alkaline Phosphatase 94 46-116 U/L B-Type Natriuretic Peptide 16.88 0-100 pg/mL Total Protein 7.7 5.7-8.2 g/dL Albumin 4.2 3.2-4.8 g/dL SEPSIS Sepsis Screen Date sepsis recognized/suspect: Dec 15, 2024 Time Sepsis recognized/suspect: 734 Recent Procedure: No On Antibiotic Therapy: No Respiratory Rate >20: No Heart Rate >90: No Temp<36 C (96.8 F) or >38.3 C: No SBP <90 or MAP <65 mmHG: No New Acute Mental Status Change: No Is the patient on CPAP, BIPAP,: No Physician Orders Admit (12/15/24 13:44) Allergies (12/15/24 13:44) Code Status (12/15/24 13:44) Sodium Chloride Lock (Saline Lock Ns) (12/15/24 14:00) Acetaminophen Tablet (Tylenol Tablet) (12/15/24 13:45) Hydrocodone-Acet 5/325mg Tab ([facility] 5/32 (12/15/24 13:45) Ondansetron Hcl (Zofran) (12/15/24 13:45) Complete Blood Count (12/16/24 04:00) Comprehensive Metabolic Panel (12/16/24 04:00) Condition: Fair (12/15/24 13:44) C-Reactive Protein (12/15/24 14:35) Drug Screen (12/15/24 14:35) Hepatic Panel (12/15/24 14:35) Magnesium (12/15/24 14:35) PTPTT (12/15/24 14:35) Urinalysis (12/15/24 14:35) Thyroid Stimulating Hormone (12/15/24 14:35) * Wound Consult (12/15/24 ) Wound Culture W/ Gs (12/15/24 14:35) Regular Diet (12/15/24 Dinner) Give Pts Own Meds (12/15/24 ) May Take Own Meds (12/15/24 14:39) * Surgical Consult (12/15/24 ) Laboratory Tests Test 12/15/24 08:03 White Blood Count 5.9 10^3/uL (4.4-10.8) Assessment/Plan Assessment/Plan # Chronic nonhealing right lower extremity wound/ulcer # ? cellulitis of RLE - admit - wound consult and wound cultures - consulted surgeon - continue home medication Zyvox # SLE not in exacerbation GI PPX: not indicated VTE ppx: no anticoagulations due to bleeding Diet: regular diet Goals of care addressed with the patient for more than 27 minutes: Full code status Case discussed with Dr. Holguin ,patient and nurse Plan discussed with: Patient My Orders Orders - SELENA OJEDA RESIDENT Procedure Category Date Status Time Admit ADMIT 12/15/24 Transmitted 13:44 Allergies RIO 12/15/24 In Process 13:44 Code Status CODE 12/15/24 Transmitted 13:44 Sodium Chloride Lock PHA 12/15/24 In Process (Saline Lock Ns) 14:00 Acetaminophen Tablet PHA 12/15/24 In Process (Tylenol Tablet) 13:45 Hydrocodone-Acet PHA 12/15/24 In Process 5/325mg Tab ([facility] 13:45 Ondansetron Hcl PHA 12/15/24 In Process (Zofran) 13:45 Complete Blood Count LAB 12/16/24 Verified 04:00 Comprehensive LAB 12/16/24 Verified Metabolic Panel 04:00 Condition: Fair RIO 12/15/24 In Process 13:44 C-Reactive Protein LAB 12/15/24 In Process 14:35 Drug Screen LAB 12/15/24 Logged 14:35 Hepatic Panel LAB 12/15/24 In Process 14:35 Magnesium LAB 12/15/24 In Process 14:35 PTPTT LAB 12/15/24 In Process 14:35 Urinalysis LAB 12/15/24 Logged 14:35 Thyroid Stimulating LAB 12/15/24 In Process Hormone 14:35 * Wound Consult CONS 12/15/24 Transmitted Wound Culture W/ Gs BESS 12/15/24 Logged 14:35 Regular Diet DIET 12/15/24 Transmitted Dinner Give Pts Own Meds ED NURSING 12/15/24 Transmitted May Take Own Meds ORDERS 12/15/24 Transmitted 14:39 * Surgical Consult CONS 12/15/24 Transmitted Date of Service: Dec 15, 2024 Billing Provider: AYAN DEMARCO MD Common Visit Codes: 01400-[id number] INP/OBS CARE (HIGH) Secondary Visit Codes: 94531-[id number] CARE PLAN 30 MINUTES SELENA OJEDA RESIDENT Dec 15, 2024 15:58 AYAN DEMARCO MD Dec 21, 2024 01:39
[2024-12-15 16:08] LABS: INR 1.0 (0.9-1.15); Partial Thromboplastin Time 27.9 SEC (24.5-34.5); Prothrombin Time 10.6 sec (9.3-11.8)
[2024-12-15 16:24] VITALS: BP 148/86; PULSE 70; RESP 17; TEMP 97; O2SAT 100
[2024-12-15 17:45] VITALS: RESP 100; O2SAT 100
[2024-12-15] MEDS: HYDROcodone-ACET 5/325MG TAB PO PRN (17:51)
[2024-12-15 21:00] VITALS: BP 145/87; PULSE 74; RESP 23; TEMP 98.5; O2SAT 98
[2024-12-15] MEDS: ONDANSETRON HCL 4 MG/2 ML VIAL IV PRN (23:03)
[2024-12-15] MEDS: MORPHINE SULFATE INJ 2 MG/ml SYRG IV ONE (23:05)
[2024-12-16 05:00] VITALS: BP 125/77; PULSE 70; RESP 19; TEMP 98.5; O2SAT 98
[2024-12-16 05:54] LABS: Hematocrit 26.4 % (36.0-46.0); Hemoglobin 8.8 g/dL (12.2-16.2); Mean Corpuscular Hemoglobin 29.8 pg (28.0-32.0); Mean Corpuscular Volume 89.5 fL (80.0-100.0); Nucleated Red Blood Cells % 0.1 %
[2024-12-16 06:24] LABS: Alanine Aminotransferase 13 U/L (7-40); Albumin 3.7 g/dL (3.2-4.8); Alkaline Phosphatase 88 U/L (46-116); Anion Gap 8 (5-15); Calcium 8.8 mg/dL (8.7-10.4); Carbon Dioxide 23 mmol/L (20-31); Glucose 90 mg/dL (74-106); Potassium 4.4 mmol/L (3.5-5.1); Sodium 142 mmol/L (136-145); Total Protein 6.9 g/dL (5.7-8.2)
[2024-12-16 07:29] LABS: Bilirubin, Total 0.2 mg/dL (0.2-1.0); Chloride 111 mmol/L (98-107)
[2024-12-16 07:40] LABS: BUN/Creatinine Ratio 22.6 (10.0-20.0); Blood Urea Nitrogen 19 mg/dL (9-23)
[2024-12-16 09:20] VITALS: BP 121/79; PULSE 60; RESP 16; TEMP 97.7; O2SAT 100
[2024-12-16 11:26] LABS: Iron 117.0 ug/dL (50-170)
[2024-12-16 11:29] LABS: Total Iron Binding Capacity 270.0 ug/dL (250-425)
[2024-12-16 13:49] VITALS: BP 124/73; PULSE 72; RESP 16; TEMP 98.1; O2SAT 100
[2024-12-16] MEDS: MORPHINE SULFATE INJ 2 MG/ml SYRG IV PRN (16:04)
--- NOTE | 2024-12-16 16:08 | DVHPNRES ---
Progress Note Date Seen: Dec 16, 2024 Resident Creating Document: SUNITA HEREDIA RESIDENT Medical Necessity Reason Pt with a Central, PICC or Fol: No Subjective Review of Systems Patient is seen today at bedside. Labs and chart reviewed. Patient reported ongoing leg pain, ordered morphine IV PRN. Pending surgery consult. Objective vital signs Vital Sign Date Time Temp Pulse Resp B/P (MAP) Pulse Ox O2 Delivery O2 Flow Rate FiO2 12/16/24 16:04 78 17 125/79 12/16/24 13:49 98.1 100 98.1 12/15/24 20:30 Room Air* 0 21 Total Intake and Output 12/15/24 12/15/24 12/16/24 15:00 23:00 07:00 Intake Total 250 ml Output Total 450 ml Balance -200 ml medications Current Medications Medications Dose Ordered Sig/Jose Route Start Time Stop Time Status Last Admin Dose Admin Sodium Chloride 10 ml Q8HR IV 12/15/24 14:00 12/16/24 14:00 10 ML Acetaminophen 325 mg Q4HP PRN PO 12/15/24 13:45 Acetaminophen/ Hydrocodone Bitart 1 tab Q4HP PRN PO 12/15/24 13:45 12/15/24 17:51 1 TAB Ondansetron HCl 4 mg Q4HP PRN IV 12/15/24 13:45 12/15/24 23:03 4 MG Morphine Sulfate 1 mg Q6HP PRN IV 12/16/24 14:15 12/16/24 16:04 1 MG Examination General Appearance: Alert, Oriented X3, Cooperative, Not in acute distress HEENT: Atraumatic, Mucous membranes moist/pink Respiratory: Clear to auscultation, Normal air movement, No added sounds Cardiovascular: Regular rate, Normal S1, Normal S2, No murmurs Abdominal: Active bowel sounds, Soft, no distention, no tenderness Extremities: right lower leg ulcer, nonhealing with the granulation tissue, no bleeding noted size approximately 5 x 10 cm Skin: As above Neuro: Normal speech, sensorimotor deficits none Psych/Mental Status: Mental status NL, Mood NL Nurse was there as telecommunication operator during examination laboratory and microbiology Laboratory Tests 12/16/24 05:14 Test 12/16/24 05:14 Range/Units Serum Glucose 90 74-106 mg/dL Problem List/Assessment/Plan Problem List/Assessment/Plan Assessment and plan # Chronic nonhealing right lower extremity wound/ulcer # ? cellulitis of RLE -patient complained of ongoing leg pain -ordered morphine for pain - wound consult and wound cultures - pending surgery consult - continue home medication Zyvox # SLE not in exacerbation -continue monitoring clinically # obesity -patient was counseled about the effect of obesity on health, weight reduction, healthy diet, physical activity as tolerated GI PPX: not indicated VTE ppx: no anticoagulations due to bleeding Diet: regular diet Goals of care addressed with the patient for more than 27 minutes: Full code status Case discussed with Dr. Holguin ,patient and nurse Plan discussed with: Patient Plan discussed with: Patient, Other My Orders My Orders Orders - SUNITA HEREDIA Procedure Category Date Status Time Morphine Sulfate PHA 12/16/24 In Process Injection 14:15 Date of Service: Dec 16, 2024 Billing Provider: AYAN DEMARCO MD Common Visit Codes: [id number] INP/OBS CARE(HIGH) SUNITA HEREDIA Dec 16, 2024 16:08 AYAN DEMARCO MD Dec 21, 2024 00:50
[2024-12-16 20:00] VITALS: PULSE 74; RESP 20; O2SAT 100
[2024-12-16 21:00] VITALS: BP 139/80; PULSE 74; RESP 20; TEMP 97.6; O2SAT 100
[2024-12-16] MEDS ORDERED: LINEZOLID 600MG TABLET PO SCH (22:00)
[2024-12-16] MEDS: LINEZOLID 600MG TABLET PO SCH (22:14)
[2024-12-17] VITALS (7 sets, daily range): BP systolic 124–134; BP diastolic 72–87; PULSE 65–79; RESP 17–20; TEMP 97.1–98.3; O2SAT 98–99
[2024-12-17 09:11] LABS: Hematocrit 28.7 % (36.0-46.0); Hemoglobin 9.4 g/dL (12.2-16.2); Mean Corpuscular Hemoglobin 29.5 pg (28.0-32.0); Mean Corpuscular Volume 89.7 fL (80.0-100.0); Nucleated Red Blood Cells % 0.0 %
[2024-12-17 09:33] LABS: Anion Gap 7 (5-15); Carbon Dioxide 26 mmol/L (20-31); Potassium 4.6 mmol/L (3.5-5.1); Sodium 142 mmol/L (136-145)
[2024-12-17 09:34] LABS: Calcium 9.0 mg/dL (8.7-10.4); Chloride 109 mmol/L (98-107)
[2024-12-17 09:39] LABS: BUN/Creatinine Ratio 17.5 (10.0-20.0); Blood Urea Nitrogen 14 mg/dL (9-23); Glucose 94 mg/dL (74-106)
--- NOTE | 2024-12-17 12:50 | DVHPNRES ---
Progress Note Date Seen: Dec 17, 2024 Resident Creating Document: SUNITA HEREDIA Medical Necessity Reason Pt with a Central, PICC or Fol: No Subjective Review of Systems Patient is seen today at bedside. Labs and chart reviewed. Patient on Zyvox. Pending surgery consult. Objective vital signs Vital Sign Date Time Temp Pulse Resp B/P (MAP) Pulse Ox O2 Delivery O2 Flow Rate FiO2 12/17/24 09:00 97.5 65 17 134/72 (92) 99 97.5 12/16/24 20:00 Room Air* 0 21 Total Intake and Output 12/16/24 12/16/24 12/17/24 15:00 23:00 07:00 Intake Total 300 ml Balance 300 ml medications Current Medications Medications Dose Ordered Sig/Jose Route Start Time Stop Time Status Last Admin Dose Admin Sodium Chloride 10 ml Q8HR IV 12/15/24 14:00 12/17/24 05:28 10 ML Acetaminophen 325 mg Q4HP PRN PO 12/15/24 13:45 Acetaminophen/ Hydrocodone Bitart 1 tab Q4HP PRN PO 12/15/24 13:45 12/17/24 08:52 1 TAB Ondansetron HCl 4 mg Q4HP PRN IV 12/15/24 13:45 12/15/24 23:03 4 MG Morphine Sulfate 1 mg Q6HP PRN IV 12/16/24 14:15 12/17/24 05:37 1 MG Linezolid 600 mg BID PO 12/16/24 22:00 12/17/24 08:52 600 MG Examination General Appearance: Alert, Oriented X3, Cooperative, Not in acute distress HEENT: Atraumatic, Mucous membranes moist/pink Respiratory: Clear to auscultation, Normal air movement, No added sounds Cardiovascular: Regular rate, Normal S1, Normal S2, No murmurs Abdominal: Active bowel sounds, Soft, no distention, no tenderness Extremities: right lower leg ulcer, nonhealing with the granulation tissue, no bleeding noted size approximately 5 x 10 cm Skin: As above Neuro: Normal speech, sensorimotor deficits none Psych/Mental Status: Mental status NL, Mood NL Nurse was there as telephonic case manager during examination laboratory and microbiology Laboratory Tests 12/17/24 08:42 Test 12/17/24 08:42 Range/Units Serum Glucose 94 74-106 mg/dL Problem List/Assessment/Plan Problem List/Assessment/Plan Assessment and plan # Chronic nonhealing right lower extremity wound/ulcer # ? cellulitis of RLE -patient complained of ongoing leg pain -ordered morphine for pain - wound consult and wound cultures - pending surgery consult - continue home medication Zyvox # SLE not in exacerbation -continue monitoring clinically # obesity -patient was counseled about the effect of obesity on health, weight reduction, healthy diet, physical activity as tolerated GI PPX: not indicated VTE ppx: no anticoagulations due to bleeding Diet: regular diet Goals of care addressed with the patient for more than 27 minutes: Full code status Case discussed with Dr. Holguin ,patient and nurse Plan discussed with: Patient Plan discussed with: Patient, Other My Orders My Orders Orders - SUNITA HEREDIA Procedure Category Date Status Time Morphine Sulfate PHA 12/16/24 In Process Injection 14:15 Urinalysis LAB 12/16/24 Logged 16:10 Drug Screen LAB 12/16/24 Logged 16:10 Linezolid Tablet PHA 12/16/24 In Process (Zyvox Tablet) 22:00 * Surgical Consult CONS 12/17/24 Transmitted Dietary Evaluation Review Comments: Regular diet Juan Jose BID for wound healing Expected Outcomes/Goals: healed wound, grdual wt loss Date of Service: Dec 17, 2024 Billing Provider: AYAN DEMARCO MD Common Visit Codes: [id number] INP/OBS CARE(HIGH) SUNITA HEREDIA Dec 17, 2024 12:50 AYAN DEMARCO MD Dec 21, 2024 01:05
--- NOTE | 2024-12-18 07:20 | DVHDSRES ---
Discharge Summary Date of Admission Resident Creating Document: SUNITA HEREDIA RESIDENT Dec 15, 2024 at 13:44 Date of Discharge: Dec 17, 2024 Admitting Diagnosis # Chronic nonhealing right lower extremity wound/ulcer # ? cellulitis of RLE Labs/Diagnostic Data: Laboratory Results Test 12/17/24 08:42 12/16/24 05:14 12/15/24 15:15 12/15/24 08:03 White Blood Count 4.0 10^3/uL (4.4-10.8) Red Blood Count 3.19 10^6/uL (4.0-5.20) Hemoglobin 9.4 g/dL (12.2-16.2) Hematocrit 28.7 % (36.0-46.0) Mean Corpuscular Volume 89.7 fL (80.0-100.0) Mean Corpuscular Hemoglobin 29.5 pg (28.0-32.0) Mean Corpuscular Hemoglobin Concent 32.9 g/dL (32.0-36.0) Red Cell Distribution Width 21.0 % (11.8-14.3) Platelet Count 180 10^3/uL (140-450) Mean Platelet Volume 8.2 fL (6.9-10.8) Neutrophils (%) (Auto) 43.2 % (37.0-80.0) Lymphocytes (%) (Auto) 43.7 % (10.0-50.0) Monocytes (%) (Auto) 9.7 % (0.0-12.0) Eosinophils (%) (Auto) 3.1 % (0.0-7.0) Basophils (%) (Auto) 0.3 % (0.0-2.0) Neutrophils # (Auto) 1.7 10 ^3/uL (1.6-8.6) Lymphocytes # (Auto) 1.7 10 ^3/uL (0.4-5.4) Monocytes # (Auto) 0.4 10 ^3/uL (0-1.3) Eosinophils # (Auto) 0.1 10 ^3/uL (0-0.8) Basophils # (Auto) 0 10 ^3/uL (0-0.2) Nucleated Red Blood Cells 0.0 % Sodium Level 142 mmol/L (136-145) Potassium Level 4.6 mmol/L (3.5-5.1) Chloride Level 109 mmol/L (98-107) Carbon Dioxide Level 26 mmol/L (20-31) Anion Gap 7 (5-15) Blood Urea Nitrogen 14 mg/dL (9-23) Creatinine 0.80 mg/dL (0.550-1.02) Glomerular Filtration Rate Calc 97 mL/min (>90) BUN/Creatinine Ratio 17.5 (10.0-20.0) Serum Glucose 94 mg/dL (74-106) Calcium Level 9.0 mg/dL (8.7-10.4) Iron Level 117 ug/dL (50-170) Total Iron Binding Capacity 270 ug/dL (250-425) Percent Iron Saturation 43.3 % (15-50) Ferritin 154.9 ng/mL (10-291) Total Bilirubin 0.2 mg/dL (0.2-1.0) Aspartate Amino Transferase (AST) 14 U/L (13-40) Alanine Aminotransferase (ALT) 13 U/L (7-40) Alkaline Phosphatase 88 U/L (46-116) Total Protein 6.9 g/dL (5.7-8.2) Albumin 3.7 g/dL (3.2-4.8) Prothrombin Time 10.6 sec (9.3-11.8) Prothrombin Time INR 1.00 (0.9-1.15) Activated Partial Thromboplast Time 27.9 SEC (24.5-34.5) Hemoglobin A1c 5.6 % A1C (<5.7) Magnesium Level 1.9 mg/dL (1.6-2.6) Direct Bilirubin 0.1 mg/dL (<0.3) C-Reactive Protein High Sensitivity 2.03 mg/dL (<1.0) B-Type Natriuretic Peptide 16.88 pg/mL (0-100) Thyroid Stimulating Hormone (TSH) 0.96 uIU/mL (0.55-4.78) Other Laboratory Tests 12/17/24 08:42 Brief Hx & Hospital Course: Precious Mejía a 39-year-old female with a PMH of lupus presented to the ED with the chief complaints of bleeding of chronic nonhealing right leg wound for 2 days. Patient reported she had wound problem over 6 years with a failed graft, patient also states that supplier quality specialist initially did not know what the cause of wound leading to multiple tests but in April she was diagnosed as spider bite, performed skin graft, about 2 weeks ago patient came to the hospital due to bleeding from the wound. Again wound started bleeding since today's, heavy bleeding, stating after grabbing it up and elevating leg the bleeding stopped however upon waking in the morning patient found the bed full of blood so decided to visit ED. patient also reported having severe pain rating it 9/10. Patient has been on and off on image related for for 4 months patient also have home health nurse who comes to clean the wound every other day. Hospital course-during hospital course patient is being treated conservatively with the oral antibiotic, wound care. Ordered wound consult and surgery consult, patient left AMA. Patient's condition was undetermined on discharge. Assessment # Chronic nonhealing right lower extremity wound/ulcer # ? cellulitis of RLE # SLE not in exacerbation # obesity Plan Patient left AMA Condition at Discharge: Undetermined Final Diagnosis/Problems List # Chronic nonhealing right lower extremity wound/ulcer # ? cellulitis of RLE # SLE not in exacerbation # obesity Discharge Disposition: AMA Discharge Instruct/Medications Follow Up/Referral: Patient left AMA Medications: Patient left AMA Scheduled PRN Hydrocodone-Acetaminophen (Hydrocodone/Acetaminophen 10-325 mg), 1 TAB PO QID PRN Miscellaneous Medications Ibuprofen Micronized (Ibuprofen), 800 MG PO, (Reported) Discharge Statement: "Patient was advised to return to the ER or call 911 if any headaches, dizziness, shortness of breath, chest pain, abdominal pain, bleeding, fevers, or worsening of medical condition. Patient was counseled about treatment plan, medications, possible side effects, patientverbalized understanding. All questions were answered to the best of my ability. This discharge took greater then 30 minutes in planning, reviewing documentation, counseling the patient, and discussing with other team members." ASSESSMENT ASSESSMENT Assessment Date of Service: Dec 17, 2024 Billing Provider: AYAN DEMARCO MD Common Visit Codes: [id number]-UQB/[id number] DISCH DAY >30min SUNITA HEREDIA Dec 18, 2024 07:20 AYAN DEMARCO MD Dec 21, 2024 02:17
== END 2024-12-17 19:42 | disposition left against medical advice (07) | DRG 383 ==
LOC: ER 07:34 → OVERFLOW 13:44 → EAST 17:43
PROVIDERS: ADMIT Student in an Organized Health Care Education/Training Program; ATTEND Student in an Organized Health Care Education/Training Program
DX: L03.115 Cellulitis of right lower limb (principal); L97.819 Non-pressure chronic ulcer of other part of right lower leg with unspecified severity; E11.9 Type 2 diabetes mellitus without complications; E66.9 Obesity, unspecified; M32.9 Systemic lupus erythematosus, unspecified; Z53.29 Procedure and treatment not carried out because of patient's decision for other reasons; Z68.39 Body mass index [BMI] 39.0-39.9, adult; Z87.891 Personal history of nicotine dependence; Z88.1 Allergy status to other antibiotic agents
CPT/HCPCS: 36415; 80048; 80053; 80076; 82728; 83036; 83540; 83550; 83735; 83880; 84443; 85025; 85610; 85730; 86141; 87077; 87081; 87186; 87205; 96374; 96375; G0378; J2405

== ENCOUNTER 2024-12-29 11:25 | Inpatient (IN) | payer MEDICAID ==
[~2024-12-29] VITALS: Ht 175.3 cm; Wt 116.8 kg
--- NOTE | 2024-12-29 11:50 | ED.PDOC ---
Musculoskeletal HPI Comments 39-year-old female who presents to the ED with a chief complaint of wound check on today. Patient states she was sent by Pattern Ruler, Ruben Ash, for wound care. Patient has wound to RLE, has had it for the past 6 years. She had a skin graft placed over wound on June 2024. She was told by Pattern Ruler to come to ED for admission, for debarment of wound. PMHx lupus, DM. Denies fever, chills, numbness/tingling, nausea, vomiting, chest pain, shortness of breath. No other symptoms or modifying factors present at this time. Chief Complaint: Lower Extremity Time Seen by MD: 11:45 Primary Care Provider: ALEXA King Notes: Medications, Allergies Allergies: Coded Allergies: Doxycycline (Verified Allergy, Unknown, 12/15/24) Home Meds Active Scripts Hydrocodone-Acetaminophen (Hydrocodone/Acetaminophen 10-325 mg) 1 Tab Tab, 1 TAB PO QID PRN, #30 TAB Prov:SERGIO PICHARDO MD 04/22/24 Reported Medications Ibuprofen Micronized (Ibuprofen) 800 Mg Tab, 800 MG PO, TAB 06/22/24 Information Source: Patient Mode of Arrival: Ambulatory Location: Right Extremity Location: Leg Timing: Hours Prehospital treatment: None Severity: Moderate Able to Move Extremity: Yes Pain: Moderate Mechanism: Spontaneous Circumstances: Preceding Wound DVT Risk Factors: NONE Past Medical History PAST MEDICAL HISTORY: DM Surgical History: ACCOUNTING LECTURER History: No Pertinent ACCOUNTING LECTURER History Family History Family History: Reviewed,noncontributory to illness, No family hx of Heart liza, No family hx of HTN, No family hx ofKidney liza, No family hx of Liver liza, No family hx of Lung liza, No family hx of Stroke, Family hx of DM, Family hx of Cancer Social History Smoker: Non-Smoker Alcohol: Denies ETOH Use Drugs: Denies Drug Use Lives In: Home Constitutional: denies: chills, diaphoresis, fatigue, fever, malaise, sweats, weakness, others EENTM: denies: blurred vision, double vision, ear bleeding, ear discharge, ear drainage, ear pain, ear ringing, eye pain, eye redness, hearing loss, mouth pain, mouth swelling, nasal discharge, nose bleeding, nose congestion, nose pain, photophobia, tearing, throat pain, throat swelling, voice changes, others Respiratory: denies: cough, hemoptysis, orthopnea, SOB at rest, shortness of breath, SOB with excertion, stridor, wheezing, others Cardiovascular: denies: chest pain, dizzy spells, diaphoresis, Dyspnea on exertion, edema, irregular heart beat, left arm pain, lightheadedness, palpitations, PND, syncope, others Gastrointestinal: denies: abdomen distended, abdominal pain, blood streaked bowels, constipated, diarrhea, dysphagia, difficulty swallowing, hematemesis, melena, nausea, poor appetite, poor fluid intake, rectal bleeding, rectal pain, vomiting, others Genitourinary: denies: abnormal vagina bleeding, burning, dyspareunia, dysuria, flank pain, frequency, hematuria, incontinence, pain, , vagina discharge, urgency, others Neurological: denies: dizziness, fainting, headache, left sided numbness, left sided weakness, numbness, paresthesia, pre-existing deficit, right sided numbness, right sided weakness, seizure, speech problems, tingling, tremors, weakness, others Musculoskeletal: denies: back pain, gout, joint pain, joint swelling, muscle pain, muscle stiffness, neck pain, others Integumetry: reports: wounds (RLE); denies: bruises, change in color, change in hair/nails, dryness, laceration, lesions, lumps, rash, others Allergic/Immunocompromised: denies: Difficulty Healing, Frequent Infections, Hives, Itching, others Hematologic/Lymphatic: denies: anemia, blood clots, easy bleeding, easy bruising, swollen glands, others Endocrine: denies: excessive hunger, excessive sweating, excessive thirst, excessive urination, flushing, intolerance to cold, intolerance to heat, unexplained weight gain, unexplained weight loss, others Psychiatric: denies: anxiety, bipolar disorder, depression, hopeless, panic disorder, schizophrenia, sleepless, suicidal, others All Other Systems: Reviewed and Negative Physical Exam General Appearance: Moderate Distress, Normal HEENT: Normal ENT Inspection, Pharynx Normal, TMs Normal Neck: Full Range of Motion, Non-Tender, Normal, Normal Inspection Respiratory: Chest Non-Tender, Lungs Clear, No Accessory Muscle Use, No Respiratory Distress, Normal Breath Sounds Cardiovascular: No Edema, No JVD, No Murmur, No Gallop, Normal Peripheral Pulses, Regular Rate/Rhythm Breast Exam: Deferred Gastrointestinal: No Organomegaly, Non Tender, No Pulsatile Mass, Normal Bowel Sounds, Soft Genitalia: Deferred Pelvic: Deferred Rectal: Deferred Extremities: No calf tenderness, Normal capillary refill, Normal inspection, Normal range of motion, Non-tender, No pedal edema Musculoskeletal : Apperance: Normal Neurologic: Alert, director of student aid II-XII nml as Tested, No Motor Deficits, Normal Affect, Normal Mood, No Sensory Deficits Cerebellar Function: NOT DONE Reflexes: NOT DONE Skin: Dry, Normal Color, Warm, Wounds (Right lower extremity) Peripheral Pulses: 3+ Radial (R), 3+ Radial (L) Lymphatic: No Adenopathy Was a procedure done? Was a procedure done?: No Differential Diagnosis EXT Differential Diagnosis: Cellulitis, Sprain, Strain X-Ray, Labs, Meds, VS Vital Signs Date Time Temp Pulse Resp B/P (MAP) Pulse Ox O2 Delivery O2 Flow Rate FiO2 12/29/24 11:29 98.1 81 18 149/78 98 98.1 Lab Test 12/29/24 11:58 Range/Units White Blood Count 8.3 4.4-10.8 10^3/uL Red Blood Count 3.21 L 4.0-5.20 10^6/uL Hemoglobin 9.5 L 12.2-16.2 g/dL Hematocrit 29.5 L 36.0-46.0 % Mean Corpuscular Volume 91.8 80.0-100.0 fL Mean Corpuscular Hemoglobin 29.6 28.0-32.0 pg Mean Corpuscular Hemoglobin Concent 32.3 32.0-36.0 g/dL Red Cell Distribution Width 21.2 H 11.8-14.3 % Platelet Count 234 140-450 10^3/uL Mean Platelet Volume 8.4 6.9-10.8 fL Neutrophils (%) (Auto) 62.4 37.0-80.0 % Lymphocytes (%) (Auto) 25.7 10.0-50.0 % Monocytes (%) (Auto) 8.2 0.0-12.0 % Eosinophils (%) (Auto) 3.3 0.0-7.0 % Basophils (%) (Auto) 0.4 0.0-2.0 % Neutrophils # (Auto) 5.2 1.6-8.6 10 ^3/uL Lymphocytes # (Auto) 2.1 0.4-5.4 10 ^3/uL Monocytes # (Auto) 0.7 0-1.3 10 ^3/uL Eosinophils # (Auto) 0.3 0-0.8 10 ^3/uL Basophils # (Auto) 0 0-0.2 10 ^3/uL Nucleated Red Blood Cells 0.1 % Prothrombin Time 10.6 9.3-11.8 sec Prothrombin Time INR 1.00 0.9-1.15 Activated Partial Thromboplast Time 26.5 24.5-34.5 SEC Sodium Level 144 136-145 mmol/L Potassium Level 4.2 3.5-5.1 mmol/L Chloride Level 111 H 98-107 mmol/L Carbon Dioxide Level 24 20-31 mmol/L Anion Gap 9 5-15 Blood Urea Nitrogen 12 9-23 mg/dL Creatinine 1.01 0.550-1.02 mg/dL Glomerular Filtration Rate Calc 74 >90 mL/min BUN/Creatinine Ratio 11.9 10.0-20.0 Serum Glucose 97 74-106 mg/dL Calcium Level 9.0 8.7-10.4 mg/dL Patient alert. Vitals stable. Has a wound in the right lower extremity. Answering all questions. Podiatric has send the patient for admission. He wants to do the graft. Started Zosyn. Explained to the patient. Continue monitoring. Time of 1ST Reevaluation: 12:15 Reevaluation 1ST: Unchanged Patient Education/Counseling: Diagnosis, Treatment, Prognosis Family Education/Counseling: No Family Present Departure 1 Departure Time of Disposition: 14:58 Impression: Primary Impression: Cellulitis Qualified Codes: L03.115 - Cellulitis of right lower limb Disposition: ADMITTED INPATIENT Admit to: Med Surg Condition: Guarded Critical Care Note Critical Care Time?: No Stability Stability form required: No Heart Score Heart Score: Heart Score Response (Comments) Value History N/A 0 EKG N/A 0 Age N/A 0 Risk Factors N/A 0 Troponin N/A 0 Total 0 I personally scribed for TEVIN DOZIER MD ([email or web address]) on 12/29/24 at 11:50. Electronically submitted by Patricia Parrish ([email or web address]). TEVIN DOZIER MD Dec 29, 2024 11:50
[2024-12-29 12:37] LABS: Hematocrit 29.5 % (36.0-46.0); Hemoglobin 9.5 g/dL (12.2-16.2); Mean Corpuscular Hemoglobin 29.6 pg (28.0-32.0); Mean Corpuscular Volume 91.8 fL (80.0-100.0); Nucleated Red Blood Cells % 0.1 %
[2024-12-29 12:46] LABS: Potassium 4.2 mmol/L (3.5-5.1); Sodium 144 mmol/L (136-145)
[2024-12-29 12:47] LABS: Anion Gap 9 (5-15); Calcium 9.0 mg/dL (8.7-10.4); Carbon Dioxide 24 mmol/L (20-31)
[2024-12-29 12:49] LABS: Chloride 111 mmol/L (98-107)
[2024-12-29 12:51] LABS: INR 1.0 (0.9-1.15); Partial Thromboplastin Time 26.5 SEC (24.5-34.5); Prothrombin Time 10.6 sec (9.3-11.8)
[2024-12-29 12:52] LABS: BUN/Creatinine Ratio 11.9 (10.0-20.0); Blood Urea Nitrogen 12 mg/dL (9-23); Glucose 97 mg/dL (74-106)
[2024-12-29 15:17] LABS: Urine Protein, UAD 1+ (Negative)
[2024-12-29] MEDS: PIPERACILLIN-TAZOB 3.375GM 100 ML IV ONE (15:20)
[2024-12-29] MEDS: HYDROcodone-ACET 10/325MG TAB PO ONE (15:20)
[2024-12-29] MEDS: SODIUM CHLORIDE 0.9% 1,000 ML IV SCH (16:30)
[2024-12-29] MEDS ORDERED: NITROGLYCERIN 0.4 MG SL TAB SL PRN (16:30)
[2024-12-29] MEDS ORDERED: MORPHINE SULFATE INJ 2 MG/ml SYRG IV PRN (16:30)
[2024-12-29] MEDS ORDERED: ACETAMINOPHEN 325 MG TAB PO PRN (16:30)
--- NOTE | 2024-12-29 17:29 | DVHHPRES ---
History of Present Illness Resident Creating Document: SELENA OJEDA RESIDENT History of Present Illness Precious Mejía is a 39-year-old female with a PMH of lupus presented to the ED with the chief complaints pain in chronic nonhealing right leg wound for 2 wks. Patient reported she had wound problem over 6 years with a failed graft, patient also states that plant controls specialist initially did not know what the cause of wound leading to multiple tests but in April she was diagnosed as spider bite, performed skin graft, about 2 weeks ago patient came to the hospital due to bleeding from the wound. Patient states she was sent by Tenoner Operator, Ruben Avery, for wound care. Patient has wound to [facility], has had it for the past 6 years. She had a skin graft placed over wound on June 2024. She was told by Tenoner Operator to come to ED for admission, for debarment of wound. PMH: SLE PSH: Skin graft Family history: Noncontributory Personal history: Lives at home. Quit smoking 2 months back med no other drug abuse Allergies: Doxycycline Home medications: Ibuprofen, linezolid Patient seen and examined at the bedside. wound is there on right lower leg, no bleeding noted at this time. Ordered wound consult and wound culture. Consulted with podiatry for evaluation. Review of Systems Allergies: Coded Allergies: Doxycycline (Verified Allergy, Unknown, 12/15/24) Medications Current Medications Medications Dose Ordered Sig/Jose Route Start Time Stop Time Status Last Admin Dose Admin Sodium Chloride 1,000 ml @ 60 mls/hr [id number] IV 12/29/24 16:30 UNV Ondansetron HCl 4 mg Q4HP PRN IV 12/29/24 16:30 UNV Acetaminophen 650 mg Q6HP PRN PO 12/29/24 16:30 UNV Morphine Sulfate 2 mg Q4HPRN PRN IV 12/29/24 16:30 UNV Nitroglycerin 0.4 mg Q5MINP PRN SL 12/29/24 16:30 UNV Morphine Sulfate 2 mg Q30M PRN IV 12/29/24 16:30 UNV Exam Vital Signs Vital Signs Date Time Temp Pulse Resp B/P (MAP) Pulse Ox O2 Delivery O2 Flow Rate FiO2 12/29/24 15:30 Room Air* 0 21 9/16/25 11:29 98.1 81 18 149/78 98 98.1 Exam Pt is lying on bed General Appearance: Alert, Oriented X3, Cooperative, Not in acute distress HEENT: Atraumatic, Mucous membranes moist/pink Respiratory: Clear to auscultation, Normal air movement, No added sounds Cardiovascular: Regular rate, Normal S1, Normal S2, No murmurs Abdominal: Active bowel sounds, Soft, no distention, no tenderness Extremities: right lower leg ulcer, nonhealing with the granulation tissue, no bleeding noted size approximately 5 x 10 cm Skin: As above Neuro: Normal speech, sensorimotor deficits none Psych/Mental Status: Mental status NL, Mood NL Nurse was there as frog or oyster farmworker during examination Labs/Xrays Labs Test 12/29/24 11:58 12/29/24 11:48 Range/Units White Blood Count 8.3 4.4-10.8 10^3/uL Red Blood Count 3.21 L 4.0-5.20 10^6/uL Hemoglobin 9.5 L 12.2-16.2 g/dL Hematocrit 29.5 L 36.0-46.0 % Mean Corpuscular Volume 91.8 80.0-100.0 fL Mean Corpuscular Hemoglobin 29.6 28.0-32.0 pg Mean Corpuscular Hemoglobin Concent 32.3 32.0-36.0 g/dL Red Cell Distribution Width 21.2 H 11.8-14.3 % Platelet Count 234 140-450 10^3/uL Mean Platelet Volume 8.4 6.9-10.8 fL Neutrophils (%) (Auto) 62.4 37.0-80.0 % Lymphocytes (%) (Auto) 25.7 10.0-50.0 % Monocytes (%) (Auto) 8.2 0.0-12.0 % Eosinophils (%) (Auto) 3.3 0.0-7.0 % Basophils (%) (Auto) 0.4 0.0-2.0 % Neutrophils # (Auto) 5.2 1.6-8.6 10 ^3/uL Lymphocytes # (Auto) 2.1 0.4-5.4 10 ^3/uL Monocytes # (Auto) 0.7 0-1.3 10 ^3/uL Eosinophils # (Auto) 0.3 0-0.8 10 ^3/uL Basophils # (Auto) 0 0-0.2 10 ^3/uL Nucleated Red Blood Cells 0.1 % Prothrombin Time 10.6 9.3-11.8 sec Prothrombin Time INR 1.00 0.9-1.15 Activated Partial Thromboplast Time 26.5 24.5-34.5 SEC Sodium Level 144 136-145 mmol/L Potassium Level 4.2 3.5-5.1 mmol/L Chloride Level 111 H 98-107 mmol/L Carbon Dioxide Level 24 20-31 mmol/L Anion Gap 9 5-15 Blood Urea Nitrogen 12 9-23 mg/dL Creatinine 1.01 0.550-1.02 mg/dL Glomerular Filtration Rate Calc 74 >90 mL/min BUN/Creatinine Ratio 11.9 10.0-20.0 Serum Glucose 97 74-106 mg/dL Calcium Level 9.0 8.7-10.4 mg/dL Urine Color Light-yellow Yellow Urine Clarity Clear Clear Urine pH 6.0 5.0-9.0 Urine Specific [place] 1.036 H 1.001-1.035 Urine Protein 1+ H Negative Urine Ketones Negative Negative Urine Blood Negative Negative /uL Urine Nitrite Negative Negative Urine Bilirubin Negative Negative Urine Urobilinogen Normal Negative mg/dL Urine Leukocyte Esterase 2+ Negative /uL Urine RBC 3 0 - 4 /hpf Urine Microscopic WBC 10 H 0-5 /HPF Urine Squamous Epithelial Cells Mod <5 /hpf Urine Bacteria Few H None Seen /hpf Urine Mucus Few None Seen Urine Glucose Normal Normal mg/dL SEPSIS Sepsis Screen Date sepsis recognized/suspect: Dec 29, 2024 Time Sepsis recognized/suspect: 1132 Recent Procedure: No On Antibiotic Therapy: No Respiratory Rate >20: No Heart Rate >90: No Temp<36 C (96.8 F) or >38.3 C: No SBP <90 or MAP <65 mmHG: No New Acute Mental Status Change: No Is the patient on CPAP, BIPAP,: No Physician Orders Admit (12/29/24 16:24) Allergies (12/29/24 16:24) Code Status (12/29/24 16:24) Sodium Chloride 0.9% (12/29/24 16:30) Ondansetron Hcl (Zofran) (12/29/24 16:30) Complete Blood Count (12/30/24 04:00) Comprehensive Metabolic Panel (12/30/24 04:00) Condition: Fair (12/29/24 16:24) Acetaminophen Tablet (Tylenol Tablet) (12/29/24 16:30) Morphine Sulfate Injection (12/29/24 16:30) Nitroglycerin Sublingual (Ntrostat Subli (12/29/24 16:30) Morphine Sulfate Injection (12/29/24 16:30) Oxygen By Nasal Cannula (12/29/24 16:24) Stat Ekg For Chest Pain (12/29/24 16:24) Notify Md Of Changes From Base (12/29/24 16:24) Cleaning Crew Member For 24 Hours (12/29/24 16:24) Emergency Dysrhythmia Protocol (12/29/24 16:24) Rhythm Strips Once Every Shift (12/29/24 16:24) *Podiatry Consult Bennie(Dvmg) (12/29/24 16:24) Npo After Midnight (12/29/24 17:19) * Wound Consult (12/29/24 ) Wound Culture W/ Gs (12/29/24 17:19) May Take Own Meds (12/29/24 17:19) Vital Signs Date Time Temp Pulse Resp B/P (MAP) Pulse Ox O2 Delivery O2 Flow Rate FiO2 12/29/24 15:30 Room Air* 0 21 12/29/24 11:29 98.1 81 18 149/78 98 98.1 Laboratory Tests Test 12/29/24 11:58 White Blood Count 8.3 10^3/uL (4.4-10.8) Medications Medications Dose Ordered Sig/Jose Route Start Time Stop Time Status Last Admin Dose Admin Acetaminophen/ Hydrocodone Bitart 1 tab ONCE ONCE PO 12/29/24 15:15 12/29/24 15:16 DC 12/29/24 15:20 1 TAB Piperacillin Sod/ Tazobactam Sod 100 ml @ 100 mls/hr ONCE ONCE IV 12/29/24 15:00 12/29/24 15:59 DC 12/29/24 15:20 100 MLS/HR Assessment/Plan Assessment/Plan # Chronic nonhealing right lower extremity wound/ulcer # ? cellulitis of RLE - admit - wound consult and wound cultures - consulted surgeon - continue home medication Zyvox # SLE not in exacerbation # obesity with a BMI 39.5 -patient was counseled about the effect of obesity on health, weight reduction, healthy diet, physical activity as tolerated # Acute complicated UTI/ cystitis - evident on urinalysis - ordered urine bacterial culture - currently giving Rocephin GI PPX: not indicated VTE ppx: no anti coagulations due to bleeding Diet: Npo afer midnight Goals of care addressed with the patient for more than 27 minutes: Full code status Case discussed with Dr. Galvez ,patient and nurse Plan discussed with: Patient My Orders Orders - SELENA OJEDA RESIDENT Procedure Category Date Status Time Admit ADMIT 12/29/24 Transmitted 16:24 Allergies RIO 12/29/24 In Process 16:24 Code Status CODE 12/29/24 Transmitted 16:24 Sodium Chloride 0.9% PHA 12/29/24 Logged 16:30 Ondansetron Hcl PHA 12/29/24 Logged (Zofran) 16:30 Complete Blood Count LAB 12/30/24 Verified 04:00 Comprehensive LAB 12/30/24 Verified Metabolic Panel 04:00 Condition: Fair [facility] 12/29/24 In Process 16:24 Acetaminophen Tablet PHA 12/29/24 Logged (Tylenol Tablet) 16:30 Morphine Sulfate PHA 12/29/24 Logged Injection 16:30 Nitroglycerin PHA 12/29/24 Logged Sublingual (Ntrostat 16:30 Morphine Sulfate PHA 12/29/24 Logged Injection 16:30 Oxygen By Nasal RT 12/29/24 Transmitted Cannula 16:24 Stat Ekg For Chest [facility] 12/29/24 In Process Pain 16:24 Notify Md Of Changes [facility] 12/29/24 In Process From Base 16:24 Cleaning Crew Member For [facility] 12/29/24 In Process 24 Hours 16:[address] [facility] 12/29/24 In Process Protocol 16:24 Rhythm Strips [address] [facility] 12/29/24 In Process Every Shift 16:24 *Podiatry Consult CONS 12/29/24 Transmitted Musson(Dvmg) 16:24 Npo After Midnight RIO 12/29/24 Transmitted 17:19 * Wound Consult CONS 12/29/24 Transmitted Wound Culture W/ Gs BESS 12/29/24 Transmitted 17:19 May Take Own Meds ORDERS 12/29/24 Transmitted 17:19 SELENA OJEDA RESIDENT Dec 29, 2024 17:29
[2024-12-29 19:50] VITALS: PULSE 67; RESP 18; O2SAT 99
[2024-12-29 22:57] VITALS: BP 145/98; PULSE 67; RESP 18; TEMP 97.1; O2SAT 100
[2024-12-29] MEDS: MORPHINE SULFATE INJ 2 MG/ml SYRG IV PRN (23:12)
[2024-12-30 01:00] VITALS: BP 149/87; PULSE 59; RESP 16; TEMP 97.3; O2SAT 100
[2024-12-30] MEDS ORDERED: LINE1TAB6 PO (04:49)
[2024-12-30 04:50] VITALS: PULSE 63; RESP 16; O2SAT 98
[2024-12-30 05:00] VITALS: BP 125/76; PULSE 63; RESP 16; TEMP 97.1; O2SAT 100
[2024-12-30 07:13] LABS: Hematocrit 29.1 % (36.0-46.0); Mean Corpuscular Hemoglobin 30.5 pg (28.0-32.0); Mean Corpuscular Volume 91.7 fL (80.0-100.0); Nucleated Red Blood Cells % 0.6 %
[2024-12-30 07:16] LABS: Hemoglobin 9.7 g/dL (12.2-16.2)
[2024-12-30 07:25] LABS: Alanine Aminotransferase 15 U/L (7-40); Albumin 4.0 g/dL (3.2-4.8); Alkaline Phosphatase 94 U/L (46-116); Anion Gap 10 (5-15); BUN/Creatinine Ratio 15.6 (10.0-20.0); Blood Urea Nitrogen 14 mg/dL (9-23); Calcium 9.0 mg/dL (8.7-10.4); Carbon Dioxide 23 mmol/L (20-31); Glucose 84 mg/dL (74-106); Potassium 4.0 mmol/L (3.5-5.1); Sodium 143 mmol/L (136-145); Total Protein 7.4 g/dL (5.7-8.2)
[2024-12-30 07:30] LABS: Bilirubin, Total 0.2 mg/dL (0.2-1.0); Chloride 110 mmol/L (98-107)
--- NOTE | 2024-12-30 07:50 | DVH ---
CHEST RADIOGRAPH Indication: pain Technique: Single frontal view of the chest was obtained COMPARISON: None FINDINGS: Lines and Tubes: None Lungs: Clear Pleura: No effusion. No pneumothorax. Cardiomediastinal contours: Unremarkable Bones: Unremarkable IMPRESSION: No acute disease.
[2024-12-30 09:00] VITALS: BP 144/91; PULSE 89; RESP 19; TEMP 97.5; O2SAT 100
[2024-12-30] MEDS: ONDANSETRON HCL 4 MG/2 ML VIAL IV PRN (09:20)
[2024-12-30] MEDS ORDERED: VANCOMYCIN 1GM/250ML KIT 250 ML IV ONE (09:30)
--- NOTE | 2024-12-30 11:06 | DVHPNRES ---
Progress Note Date Seen: Dec 30, 2024 Resident Creating Document: SUNITA HEREDIA RESIDENT Medical Necessity Reason Pt with a Central, PICC or Fol: No Subjective Review of Systems Precious Mejía is a 39-year-old female with a PMH of lupus presented to the ED with the chief complaints pain in chronic nonhealing right leg wound for 2 wks. Patient reported she had wound problem over 6 years with a failed graft, patient also states that credit balance specialist initially did not know what the cause of wound leading to multiple tests but in April she was diagnosed as spider bite, performed skin graft, about 2 weeks ago patient came to the hospital due to bleeding from the wound. Patient states she was sent by Restaurant Delivery Driver, Ruben Avery, for wound care. Patient has wound to [facility], has had it for the past 6 years. She had a skin graft placed over wound on June 2024. She was told by Restaurant Delivery Driver to come to ED for admission, for debarment of wound. PMH: SLE PSH: Skin graft Family history: Noncontributory Personal history: Lives at home. Quit smoking 2 months back med no other drug abuse Allergies: Doxycycline Home medications: Ibuprofen, linezolid Patient seen and examined at the bedside. Labs and chart reviewed. Patient is due for wound debridement tomorrow. NPO after midnight. Patient's ceftriaxone vancomycin. Tolerating well. Objective vital signs Vital Sign Date Time Temp Pulse Resp B/P (MAP) Pulse Ox O2 Delivery O2 Flow Rate FiO2 12/30/24 09:22 89 19 144/91 12/30/24 08:12 Room Air* 0 21 12/30/24 05:00 97.1 100 97.1 Total Intake and Output 12/29/24 12/29/24 12/30/24 15:00 23:00 07:00 Intake Total 400 ml Balance 400 ml medications Current Medications Medications Dose Ordered Sig/Jose Route Start Time Stop Time Status Last Admin Dose Admin Sodium Chloride 1,000 ml @ 60 mls/hr [id number] IV 12/29/24 16:30 12/30/24 08:35 60 MLS/HR Ondansetron HCl 4 mg Q4HP PRN IV 12/29/24 16:30 12/30/24 09:20 4 MG Acetaminophen 650 mg Q6HP PRN PO 12/29/24 16:30 Morphine Sulfate 2 mg Q4HPRN PRN IV 12/29/24 16:30 12/30/24 09:22 2 MG Nitroglycerin 0.4 mg Q5MINP PRN SL 12/29/24 16:30 Morphine Sulfate 2 mg Q30M PRN IV 12/29/24 16:30 Ceftriaxone Sodium 50 ml @ 100 mls/hr DAILY@09 IV 12/30/24 09:00 12/30/24 08:33 100 MLS/HR Vancomycin HCl 0 ml @ 0 mls/hr UD IV 12/31/24 09:30 Vancomycin HCl 250 ml @ 250 mls/hr Q1H IV 12/30/24 09:45 12/30/24 11:44 Examination Pt is lying on bed General Appearance: Alert, Oriented X3, Cooperative, Not in acute distress HEENT: Atraumatic, Mucous membranes moist/pink Respiratory: Clear to auscultation, Normal air movement, No added sounds Cardiovascular: Regular rate, Normal S1, Normal S2, No murmurs Abdominal: Active bowel sounds, Soft, no distention, no tenderness Extremities: right lower leg ulcer, nonhealing with the granulation tissue, no bleeding noted size approximately 5 x 10 cm Skin: As above Neuro: Normal speech, sensorimotor deficits none Psych/Mental Status: Mental status NL, Mood NL Nurse was there as bicycle service technician during examination laboratory and microbiology Laboratory Tests 12/30/24 05:44 Test 12/30/24 05:44 Range/Units Serum Glucose 84 74-106 mg/dL Microbiology Date/Time Source Procedure Growth Status 12/29/24 11:48 Voided Urine Urine Culture - Preliminary Resulted Problem List/Assessment/Plan Problem List/Assessment/Plan Assessment and plan # Chronic nonhealing right lower extremity wound/ulcer # ? cellulitis of RLE -continue ceftriaxone vancomycin as prescribed - patient is a scheduled for wound debridement tomorrow morning. NPO after # SLE not in exacerbation # obesity with a BMI 39.5 -patient was counseled about the effect of obesity on health, weight reduction, healthy diet, physical activity as tolerated # Acute complicated UTI/ cystitis - urine culture revealed > [id number] g negative rods - currently giving Rocephin GI PPX: not indicated VTE ppx: no anti coagulations due to bleeding Goals of care addressed with the patient for more than 27 minutes: Full code status Case discussed with Dr. Midou ,patient and nurse Plan discussed with: Patient Plan discussed with: Patient, Other (RN) My Orders My Orders Orders - SUNITA HEREDIA Procedure Category Date Status Time Vancomycin Per PHA 12/31/24 In Process Pharmacy 09:30 Complete Blood Count LAB 12/31/24 Verified 04:00 Creatinine LAB 12/31/24 Verified 04:00 Vancomycin,Random LAB 12/31/24 Verified 04:00 Vancomycin 1gm/250ml PHA 12/30/24 In Process Kit 09:45 Date of Service: Dec 30, 2024 Billing Provider: DAVI VARGAS MD Common Visit Codes: [id number] INP/OBS CARE(HIGH) Secondary Visit Codes: [id number] CARE PLAN 30 MINUTES SUNITA HEREDIA Dec 30, 2024 11:06 DAVI VARGAS MD Jan 07, 2025 22:10
[2024-12-30] MEDS: VANCOMYCIN 1GM/250ML KIT 250 ML IV SCH (11:11)
[2024-12-30 17:00] VITALS: BP 122/70; PULSE 91; RESP 18; TEMP 97.9; O2SAT 98
[2024-12-30 21:00] VITALS: BP_SYST 131; BP_SYST 150; BP_DIAS 76; BP_DIAS 88; PULSE 86; PULSE 97; RESP 16; TEMP 98.3; O2SAT 98
[2024-12-31] VITALS (11 sets, daily range): BP systolic 106–134; BP diastolic 68–80; PULSE 59–123; RESP 14–18; TEMP 97.4–98.3; O2SAT 91–100
[2024-12-31 06:28] LABS: Potassium 4.7 mmol/L (3.5-5.1); Sodium 144 mmol/L (136-145)
[2024-12-31 06:29] LABS: Anion Gap 8 (5-15); Carbon Dioxide 24 mmol/L (20-31)
[2024-12-31 06:33] LABS: Calcium 8.5 mg/dL (8.7-10.4); Chloride 112 mmol/L (98-107)
[2024-12-31 06:34] LABS: BUN/Creatinine Ratio 21.0 (10.0-20.0); Blood Urea Nitrogen 17 mg/dL (9-23); Glucose 90 mg/dL (74-106)
[2024-12-31 06:35] LABS: Magnesium 1.8 mg/dL (1.6-2.6)
[2024-12-31 06:50] LABS: Hematocrit 25.7 % (36.0-46.0); Hemoglobin 8.4 g/dL (12.2-16.2); Mean Corpuscular Hemoglobin 30.2 pg (28.0-32.0); Mean Corpuscular Volume 91.9 fL (80.0-100.0); Nucleated Red Blood Cells % 0.5 %
[2024-12-31] MEDS ORDERED: VANCOMYCIN PER PHARMACY 0 MG IV SCH (09:30)
[2024-12-31] MEDS: IBUPROFEN 400 MG TAB PO ONE (10:57)
[2024-12-31] MEDS: VANCOMYCIN 1.25GM/250ML 250 ML IV SCH (11:09)
--- NOTE | 2024-12-31 12:13 | DVHCONRES ---
Date Seen: Dec 31, 2024 Reason for Consultation Right leg wound History of Present Illness Precious Mejía is a 39-year-old female with a PMH of lupus presented to the ED with the chief complaints pain in chronic nonhealing right leg wound for 2 wks. Patient reported she had wound problem over 6 years with a failed graft, patient also states that document preparation specialist initially did not know what the cause of wound leading to multiple tests but in April she was diagnosed as spider bite, performed skin graft, about 2 weeks ago patient came to the hospital due to bleeding from the wound. Patient states she was sent by Motor Coach Tour Operator, Ruben Estrada, for wound care. Patient has wound to [facility], has had it for the past 6 years. She had a skin graft placed over wound on June 2024. She was told by Motor Coach Tour Operator to come to ED for admission, for debarment of wound. Past Medical History See H&P Past Surgical History See H&P Family History: Diabetes mellitus G8 MOTHER Allergies: Coded Allergies: Doxycycline (Verified Allergy, Unknown, 12/15/24) Home Meds Active Scripts Hydrocodone-Acetaminophen (Hydrocodone/Acetaminophen 10-325 mg) 1 Tab Tab, 1 TAB PO QID PRN, #30 TAB Prov:SERGIO PICHARDO MD 04/22/24 Reported Medications Linezolid (Zyvox) 600 Mg Tab, 600 MG PO, TAB 12/30/24 Ibuprofen Micronized (Ibuprofen) 800 Mg Tab, 800 MG PO, TAB 06/22/24 Current Medications Current Medications Medications (Trade) Dose Ordered Sig/Jose Route PRN Reason Start Time Stop Time Status Last Admin Vancomycin HCl 0 ml @ 0 mls/hr UD IV 12/31/24 09:30 Vancomycin HCl 250 ml @ 200 mls/hr Q12H IV 12/31/24 11:00 12/31/24 11:09 Vital Signs Vital Signs Date Time Temp Pulse Resp B/P (MAP) Pulse Ox O2 Delivery O2 Flow Rate FiO2 12/31/24 09:00 98.0 77 18 111/68 (82) 98 98.0 12/30/24 20:00 Room Air* 0 21 Physical Exam Dermatological: Skin is dry with mild erythema and some maceration around the wound site No gross deformities noted Mild non-pitting edema present bilaterally Right anterior leg ulcer with fibrosis Vascular: Dorsalis pedis and posterior tibial pulses are 1+ bilaterally Capillary refill is under 2 seconds Skin temperature is warm bilaterally Neurologic: Protective sensation is absent on the plantar forefoot bilaterally Monofilament testing reveals decreased sensation in multiple plantar sites Musculoskeletal: Range of motion at the ankle and MTP joints is within normal limits. Strength is 5/5 in all tested muscle groups. Gait is antalgic due to offloading of the affected limb. Labs/Diagnostic Data Labs Test 12/31/24 05:27 12/30/24 12:07 12/30/24 05:44 12/29/24 11:58 Range/Units White Blood Count 5.3 # 4.4-10.8 10^3/uL Red Blood Count 2.80 L 4.0-5.20 10^6/uL Hemoglobin 8.4 L 12.2-16.2 g/dL Hematocrit 25.7 #L 36.0-46.0 % Mean Corpuscular Volume 91.9 80.0-100.0 fL Mean Corpuscular Hemoglobin 30.2 28.0-32.0 pg Mean Corpuscular Hemoglobin Concent 32.8 32.0-36.0 g/dL Red Cell Distribution Width 22.3 H 11.8-14.3 % Platelet Count 182 140-450 10^3/uL Mean Platelet Volume 8.7 6.9-10.8 fL Neutrophils (%) (Auto) 62.2 37.0-80.0 % Lymphocytes (%) (Auto) 24.5 10.0-50.0 % Monocytes (%) (Auto) 9.5 0.0-12.0 % Eosinophils (%) (Auto) 3.6 0.0-7.0 % Basophils (%) (Auto) 0.2 0.0-2.0 % Neutrophils # (Auto) 3.3 1.6-8.6 10 ^3/uL Lymphocytes # (Auto) 1.3 0.4-5.4 10 ^3/uL Monocytes # (Auto) 0.5 0-1.3 10 ^3/uL Eosinophils # (Auto) 0.2 0-0.8 10 ^3/uL Basophils # (Auto) 0 0-0.2 10 ^3/uL Nucleated Red Blood Cells 0.5 % Sodium Level 144 136-145 mmol/L Potassium Level 4.7 3.5-5.1 mmol/L Chloride Level 112 H 98-107 mmol/L Carbon Dioxide Level 24 20-31 mmol/L Anion Gap 8 5-15 Blood Urea Nitrogen 17 9-23 mg/dL Creatinine 0.81 0.550-1.02 mg/dL Glomerular Filtration Rate Calc 96 >90 mL/min BUN/Creatinine Ratio 21.0 H 10.0-20.0 Serum Glucose 90 74-106 mg/dL Calcium Level 8.5 L 8.7-10.4 mg/dL Magnesium Level 1.8 1.6-2.6 mg/dL Random Vancomycin Level 7.4 5-10 ug/mL Beta HCG, Quantitative 2.0 1.5-4.2 mIU/mL Total Bilirubin 0.2 0.2-1.0 mg/dL Aspartate Amino Transferase (AST) 16 13-40 U/L Alanine Aminotransferase (ALT) 15 7-40 U/L Alkaline Phosphatase 94 46-116 U/L Total Protein 7.4 5.7-8.2 g/dL Albumin 4.0 3.2-4.8 g/dL Prothrombin Time 10.6 9.3-11.8 sec Prothrombin Time INR 1.00 0.9-1.15 Activated Partial Thromboplast Time 26.5 24.5-34.5 SEC Test 12/29/24 11:48 Range/Units Urine Color Light-yellow Yellow Urine Clarity Clear Clear Urine pH 6.0 5.0-9.0 Urine Specific [place] 1.036 H 1.001-1.035 Urine Protein 1+ H Negative Urine Ketones Negative Negative Urine Blood Negative Negative /uL Urine Nitrite Negative Negative Urine Bilirubin Negative Negative Urine Urobilinogen Normal Negative mg/dL Urine Leukocyte Esterase 2+ Negative /uL Urine RBC 3 0 - 4 /hpf Urine Microscopic WBC 10 H 0-5 /HPF Urine Squamous Epithelial Cells Mod <5 /hpf Urine Bacteria Few H None Seen /hpf Urine Mucus Few None Seen Urine Glucose Normal Normal mg/dL Microbiology Date/Time Source Procedure Growth Status 12/30/24 05:41 Nose MRSA Screen - Final Complete 12/29/24 11:48 Voided Urine Urine Culture - Final Complete Problems(with codes): (1) Intractable pain (2) Generalized weakness (3) Non-healing ulcer of lower leg (4) Chronic wound (5) History of systemic lupus erythematosus (6) Open leg wound (7) Cellulitis Plan/Recommendation ASSESSMENT: Patient is a 39 year old seen on the floor for a worsening ulcer PLAN: - The patients chart was reviewed, clinical findings were discussed with the patient, the etiologies of the conditions were discussed in detail, and a treatment plan was agreed to at this time, with both oral and written instructions provided. - reviewed advanced imaging - discussed plan is to perform an incision and drainage - patient NPO since midnight - take her to the OR today - we will get cultures in the OR - can weightbear as tolerated in postoperative shoe All questions were answered and concerns addressed to the patient's satisfaction. The patient was given the phone number to the clinic and was told how to make contact with the clinic should any concerns or questions arise. Patient understands that if any questions or concerns arise prior to the next appointment, we should be contacted immediately. FOLLOW-UP: Continue to follow while inpatient Plan discussed with: Patient Visit Coding Podiatry Date of Service if different f: Dec 31, 2024 Billing Provider: RUBEN ESTRADA DPM Podiatry Common Visit Codes: CONSULT ONLY Podiatry Consult Codes: 58019-TI/OBS CONSLTJ NEW/EST HI 80 RUBEN ESTRADA DPM Dec 31, 2024 12:13
[2024-12-31] MEDS ORDERED: GLYCOPYRROLATE 0.2 MG/ML 1ML VIAL ONE (12:20)
[2024-12-31] MEDS ORDERED: MIDAZOLAM HCL 2MG/2ML 2ml VIAL (1mg/ml) ONE (12:20)
[2024-12-31] MEDS ORDERED: PROPOFOL 10 MG/ML 20 ML IV ONE (12:20)
[2024-12-31] MEDS ORDERED: ONDANSETRON HCL 4 MG/2 ML VIAL ONE (12:20)
--- NOTE | 2024-12-31 12:25 | DVHPNRES ---
Progress Note Date Seen: Dec 31, 2024 Resident Creating Document: SUNITA HEREDIA RESIDENT Medical Necessity Reason Pt with a Central, PICC or Fol: No Subjective Review of Systems Precious Mejía is a 39-year-old female with a PMH of lupus presented to the ED with the chief complaints pain in chronic nonhealing right leg wound for 2 wks. 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 Patient states she was sent by Medicare Nurse, Ruben Avery, for wound care. Patient has wound to [facility], has had it for the past 6 years. She had a skin graft placed over wound on June 2024. She was told by Medicare Nurse to come to ED for admission, for debarment of wound. PMH: SLE PSH: Skin graft Family history: Noncontributory Personal history: Lives at home. Quit smoking 2 months back med no other drug abuse Allergies: Doxycycline Home medications: Ibuprofen, linezolid Patient seen and examined at the bedside. Labs and chart reviewed. Patient is due for wound debridement tomorrow. NPO after midnight. Patient's ceftriaxone vancomycin. Tolerating well. Patient had Right leg I&D, Right leg wound bed preparation for angelina, Right leg application of graft by service parts coordinator Dr. Avery today. Objective vital signs Vital Sign Date Time Temp Pulse Resp B/P (MAP) Pulse Ox O2 Delivery O2 Flow Rate FiO2 12/31/24 09:00 98.0 77 18 111/68 (82) 98 98.0 12/30/24 20:00 Room Air* 0 21 Total Intake and Output 12/30/24 12/30/24 12/31/24 15:00 23:00 07:00 Intake Total 670 ml 300 ml 700 ml Balance 670 ml 300 ml 700 ml medications Current Medications Medications Dose Ordered Sig/Jose Route Start Time Stop Time Status Last Admin Dose Admin Sodium Chloride 1,000 ml @ 60 mls/hr [id number] IV 12/29/24 16:30 12/31/24 03:19 60 MLS/HR Ondansetron HCl 4 mg Q4HP PRN IV 12/29/24 16:30 12/30/24 09:20 4 MG Acetaminophen 650 mg Q6HP PRN PO 12/29/24 16:30 Morphine Sulfate 2 mg Q4HPRN PRN IV 12/29/24 16:30 12/31/24 06:56 2 MG Nitroglycerin 0.4 mg Q5MINP PRN SL 12/29/24 16:30 Morphine Sulfate 2 mg Q30M PRN IV 12/29/24 16:30 Ceftriaxone Sodium 50 ml @ 100 mls/hr DAILY@09 IV 12/30/24 09:00 12/31/24 09:48 100 MLS/HR Vancomycin HCl 0 ml @ 0 mls/hr UD IV 12/31/24 09:30 Vancomycin HCl 250 ml @ 200 mls/hr Q12H IV 12/31/24 11:00 12/31/24 11:09 200 MLS/HR Examination General Appearance: Alert, Oriented X3, Cooperative, Not in acute distress HEENT: Atraumatic, Mucous membranes moist/pink Respiratory: Clear to auscultation, Normal air movement, No added sounds Cardiovascular: Regular rate, Normal S1, Normal S2, No murmurs Abdominal: Active bowel sounds, Soft, no distention, no tenderness Extremities: right lower leg ulcer, nonhealing with the granulation tissue, no bleeding noted size approximately 5 x 10 cm Skin: As above Neuro: Normal speech, sensorimotor deficits none Psych/Mental Status: Mental status NL, Mood NL Nurse was there as machine quilt stuffer during examination laboratory and microbiology Laboratory Tests 12/31/24 05:27 Test 12/31/24 05:27 Range/Units Serum Glucose 90 74-106 mg/dL Microbiology Date/Time Source Procedure Growth Status 12/30/24 05:41 Nose MRSA Screen - Final Complete 12/29/24 11:48 Voided Urine Urine Culture - Final Complete Problem List/Assessment/Plan Problem List/Assessment/Plan Assessment and plan # Chronic nonhealing right lower extremity wound/ulcer # ? cellulitis of RLE -continue ceftriaxone vancomycin as prescribed - s/p Right leg I&D, Right leg wound bed preparation for angelina, Right leg application of graft by service parts coordinator Dr. Avery today. # SLE not in exacerbation # obesity with a BMI 39.5 -patient was counseled about the effect of obesity on health, weight reduction, healthy diet, physical activity as tolerated # Acute complicated UTI/ cystitis - urine culture revealed > [id number] g negative rods - currently giving Rocephin GI PPX: not indicated VTE ppx: no anti coagulations due to bleeding Goals of care addressed with the patient for more than 27 minutes: Full code status Case discussed with Dr. Galvez ,patient and nurse Plan discussed with: Patient Plan discussed with: Patient, Other (RN) My Orders My Orders Orders - SUNITA HEREDIA Procedure Category Date Status Time Npo (Nothing By DIET 12/31/24 Transmitted Mouth) Diet Breakfast Vancomycin PHA 12/31/24 In Process 1.25gm/250ml 11:00 Vancomycin Per RIO 12/31/24 In Process Pharmacy Protoc 11:00 Creatinine LAB 01/01/25 Verified 04:00 Vancomycin,Trough LAB 01/01/25 Verified 22:00 Dietary Evaluation Review Comments: Regular Diet, Juan Jose BID to promote wound healing Wt management Expected Outcomes/Goals: healed wound and gradual wt loss Date of Service: Dec 31, 2024 Billing Provider: DAVI GALVEZ MD Common Visit Codes: [id number] INP/OBS CARE(HIGH) SUNITA HEREDIA Dec 31, 2024 12:25 DAVI GALVEZ MD Jan 07, 2025 22:11
--- NOTE | 2024-12-31 12:29 | DVHOP2 ---
Operative Report - 2 Report Details Date: 12/31/24 Preop Diagnosis: 1. Right leg nonhealing ulcer 2. Right leg cellulitis 3. Right leg open wound Postop Diagnosis: Same as preop Surgeon: Elba Estrada MD Anesthesiologist: See anesthesia Anesthesia: Mac Implant: 10 x 25cm Integra bilayer Consent: The patient was informed of the risks and benefits of the procedure. These include but are not limited to complications of anesthesia, postoperative infection, incomplete relief of symptoms, recurrence of symptoms, damage to blood vessels, nerves and tendons, deep venous thrombosis, pulmonary embolism and possible need for repeat surgery in the future. Complications: None Estimated Blood Loss: Minimal Fluids: See anesthesia Findings: Consistent with diagnosis Indications for Surgery: Worsening leg wound Name of Procedure Performed 1. Right leg I&D (34629) 2. Right leg wound bed preparation for graft (77675) 3. Right leg application of graft (21906) Procedure Details Procedure Details: PRE-PROCEDURE INFORMATION: In the pre-op holding area, the extremity to be operated on was clearly marked and the patient verified correct laterality of the marking. The patient was transferred to the OR table and placed in a supine position. A timeout was performed in which identification of the correct patient, procedure, location, and materials was done. The right foot and leg were prepped and draped in normal sterile fashion. DESCRIPTION OF PROCEDURE: Attention was directed to the right anterior leg where the wound was noted. An incision was made over this area and was deepened through blunt dissection. Using a rongeur and curette, the wound bed was then prepped for application of graft. All of the fibrotic and necrotic material was removed at that point. Cultures were taken of the wound. After the wound was prepped for graft, the area was irrigated with 3 L normal saline using cysto tubing. The dermal graft 10 x 25 cm Integra graft was then applied to the right leg. The graft was then adhered to the wound with a staple gun. The wound was then dressed with Xeroform, 4x4s, ABD, Webril, Pako bandage. POSTOPERATIVE INFORMATION: The patient tolerated the above noted procedure and anesthesia well and was transferred to the PACU with vital signs stable, and vascular status intact with capillary refill intact to all digits. Patient will return to the floor and continue IV antibiotics. Patient will need dressing ch anges every other day to evaluate the graft, Xeroform, 4x4s, ABD, Webril, Pako. Patient will need IV antibiotics to help with the cellulitis around the wound. Follow up with me in 1 week Condition Good Disposition Still a Patient Visit Coding Podiatry Date of Service if different f: Dec 31, 2024 Billing Provider: ELBA ESTRADA DPM Podiatry Common Visit Codes: PROCEDURE ONLY ELBA ESTRADA DPM Dec 31, 2024 12:29
[2024-12-31] MEDS: LIDOCAINE 1% HCL (LOCAL ANESTH.) INJ 20ML MDV ONE (12:35)
[2024-12-31] MEDS ORDERED: HYDROmorphone HCL 2 MG/ML VL/or syr ONE (12:39)
[2024-12-31] MEDS: HYDROmorphone HCL 2 MG/ML VL/or syr ONE (13:13)
[2024-12-31] MEDS: HYDROmorphone HCL 2 MG/ML VL/or syr IV PRN (13:13)
[2024-12-31] MEDS ORDERED: ACETAMINOPHEN IV 100 ML IV ONE (13:53)
[2024-12-31] MEDS: ACETAMINOPHEN IV 1000 MG/100ML (10MG/ML) IV ONE (14:04)
[2025-01-01] VITALS (7 sets, daily range): BP systolic 111–147; BP diastolic 69–88; PULSE 56–79; RESP 16–20; TEMP 97.5–97.9; O2SAT 92–100
[2025-01-01] MEDS: MORPHINE SULFATE INJ 2 MG/ml SYRG IV PRN (01:35)
[2025-01-01 06:44] LABS: Potassium 4.3 mmol/L (3.5-5.1); Sodium 143 mmol/L (136-145)
[2025-01-01 06:45] LABS: Anion Gap 8 (5-15); Carbon Dioxide 24 mmol/L (20-31); Chloride 111 mmol/L (98-107)
[2025-01-01 06:50] LABS: BUN/Creatinine Ratio 13.5 (10.0-20.0); Blood Urea Nitrogen 10 mg/dL (9-23); Glucose 99 mg/dL (74-106)
[2025-01-01 06:53] LABS: Calcium 8.6 mg/dL (8.7-10.4)
--- NOTE | 2025-01-01 12:12 | DVHPNRES ---
Progress Note Date Seen: Jan 01, 2025 Resident Creating Document: SUNITA HEREDIA RESIDENT Medical Necessity Reason Pt with a Central, PICC or Fol: No Subjective Review of Systems Precious Mejía is a 39-year-old female with a PMH of lupus presented to the ED with the chief complaints pain in chronic nonhealing right leg wound for 2 wks. 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 Patient states she was sent by Final [employer], Ruben Avery, for wound care. Patient has wound to [facility], has had it for the past 6 years. She had a skin graft placed over wound on June 2024. She was told by [employer] to come to ED for admission, for debarment of wound. PMH: SLE PSH: Skin graft Family history: Noncontributory Personal history: Lives at home. Quit smoking 2 months back med no other drug abuse Allergies: Doxycycline Home medications: Ibuprofen, linezolid Patient seen and examined at the bedside. Labs and chart reviewed. Patient is status post skin grafting for right lower extremity wound. Wound culture revealed Pseudomonas aeruginosa, discontinue ceftriaxone, ordered an cefepime. Ordered social service consult to resume home health for wound care. Objective vital signs Vital Sign Date Time Temp Pulse Resp B/P (MAP) Pulse Ox O2 Delivery O2 Flow Rate FiO2 01/01/25 11:37 72 16 120/60 01/01/25 10:00 97.8 93 97.8 01/01/25 08:00 Room Air* 0 21 Total Intake and Output 12/31/24 12/31/24 01/01/25 15:00 23:00 07:00 Intake Total 560 ml 330 ml 600 ml Balance 560 ml 330 ml 600 ml medications Current Medications Medications Dose Ordered Sig/Jose Route Start Time Stop Time Status Last Admin Dose Admin Sodium Chloride 1,000 ml @ 60 mls/hr [id number] IV 12/29/24 16:30 01/01/25 08:53 60 MLS/HR Ondansetron HCl 4 mg Q4HP PRN IV 12/29/24 16:30 12/30/24 09:20 4 MG Acetaminophen 650 mg Q6HP PRN PO 12/29/24 16:30 Nitroglycerin 0.4 mg Q5MINP PRN SL 12/29/24 16:30 Morphine Sulfate 2 mg Q30M PRN IV 12/29/24 16:30 Vancomycin HCl 0 ml @ 0 mls/hr UD IV 12/31/24 09:30 Vancomycin HCl 250 ml @ 200 mls/hr Q12H IV 12/31/24 11:00 01/01/25 11:13 200 MLS/HR Morphine Sulfate 1 mg Q2HP PRN IV 12/31/24 13:00 01/01/25 11:37 1 MG Oxycodone HCl 5 mg ONCE PRN PO 12/31/24 14:00 Cefepime HCl 50 ml @ 12.5 mls/hr Q12HR IV 01/01/25 22:00 UNV Examination General Appearance: Alert, Oriented X3, Cooperative, Not in acute distress HEENT: Atraumatic, Mucous membranes moist/pink Respiratory: Clear to auscultation, Normal air movement, No added sounds Cardiovascular: Regular rate, Normal S1, Normal S2, No murmurs Abdominal: Active bowel sounds, Soft, no distention, no tenderness Extremities: right lower leg ulcer, nonhealing with the granulation tissue, no bleeding noted size approximately 5 x 10 cm Skin: As above Neuro: Normal speech, sensorimotor deficits none Psych/Mental Status: Mental status NL, Mood NL Nurse was there as assembly line machine operator during examination laboratory and microbiology Laboratory Tests 01/01/25 05:13 12/31/24 05:27 Test 01/01/25 05:13 Range/Units Serum Glucose 99 74-106 mg/dL Microbiology Date/Time Source Procedure Growth Status 12/31/24 12:45 Leg Right Gram Stain - Final Resulted 12/31/24 12:45 Leg Right Anaerobic Culture - Preliminary Resulted 12/31/24 12:45 Leg Right Aerobic Culture - Preliminary Resulted 12/29/24 11:48 Voided Urine Urine Culture - Final Complete Problem List/Assessment/Plan Problem List/Assessment/Plan Assessment and plan # Chronic nonhealing right lower extremity wound/ulcer # ? cellulitis of RLE -discontinued ceftriaxone -ordered cefepime -continue vancomycin as per pharmacy protocol - s/p Right leg I&D, Right leg wound bed preparation for angelina, Right leg application of graft by manager personnel selection Dr. Avery today. # SLE not in exacerbation # obesity with a BMI 39.5 -patient was counseled about the effect of obesity on health, weight reduction, healthy diet, physical activity as tolerated # Acute complicated UTI/ cystitis - urine culture contaminated sample -continue current antibiotic GI PPX: not indicated VTE ppx: no anti coagulations due to bleeding Goals of care addressed with the patient for more than 27 minutes: Full code status Case discussed with Dr. Galvez ,patient and nurse Plan discussed with: Patient Plan discussed with: Patient, Other My Orders My Orders Orders - SUNITA HEREDIA Procedure Category Date Status Time Cefepime 2gm/50ml Ns PHA 01/01/25 Logged (Maxipime 2gm/50ml) 22:00 * [employer] Bi Consultant CONS 01/01/25 Transmitted Consult Dietary Evaluation Review Comments: Regular Diet, Juan Jose BID to promote wound healing Wt management Expected Outcomes/Goals: healed wound and gradual wt loss Date of Service: Jan 01, 2025 Billing Provider: DAVI GALVEZ MD Common Visit Codes: [id number] INP/OBS CARE(HIGH) SUNITA HEREDIA Jan 01, 2025 12:12 DAVI GALVEZ MD Jan 07, 2025 22:11
[2025-01-01] MEDS ORDERED: KETAMINE 50mg/ML 1ml syringe IV ONE (13:04)
[2025-01-01] MEDS: CEFEPIME 2GM/50ML NS 50 ML IV SCH (18:05)
[2025-01-02 00:53] VITALS: BP 118/65; PULSE 72; RESP 19; TEMP 98; O2SAT 97
[2025-01-02 05:00] VITALS: BP 133/81; PULSE 61; RESP 19; TEMP 98.1; O2SAT 98
[2025-01-02 09:00] VITALS: BP 137/95; PULSE 68; RESP 16; TEMP 98.4; O2SAT 99
--- NOTE | 2025-01-02 17:49 | DVHDS2 ---
Discharge Summary Date of Admission Dec 29, 2024 at 16:24 Date of Discharge: Jan 02, 2025 Labs/Diagnostic Data: Laboratory Results Test 01/02/25 06:48 01/01/25 22:03 01/01/25 05:13 12/31/24 05:27 Magnesium Level 1.8 mg/dL (1.6-2.6) Vancomycin Level Trough 14.0 ug/mL (5-10) Sodium Level 143 mmol/L (136-145) Potassium Level 4.3 mmol/L (3.5-5.1) Chloride Level 111 mmol/L (98-107) Carbon Dioxide Level 24 mmol/L (20-31) Anion Gap 8 (5-15) Blood Urea Nitrogen 10 mg/dL (9-23) Creatinine 0.74 mg/dL (0.550-1.02) Glomerular Filtration Rate Calc 107 mL/min (>90) BUN/Creatinine Ratio 13.5 (10.0-20.0) Serum Glucose 99 mg/dL (74-106) Calcium Level 8.6 mg/dL (8.7-10.4) White Blood Count 5.3 10^3/uL (4.4-10.8) Red Blood Count 2.80 10^6/uL (4.0-5.20) Hemoglobin 8.4 g/dL (12.2-16.2) Hematocrit 25.7 % (36.0-46.0) Mean Corpuscular Volume 91.9 fL (80.0-100.0) Mean Corpuscular Hemoglobin 30.2 pg (28.0-32.0) Mean Corpuscular Hemoglobin Concent 32.8 g/dL (32.0-36.0) Red Cell Distribution Width 22.3 % (11.8-14.3) Platelet Count 182 10^3/uL (140-450) Mean Platelet Volume 8.7 fL (6.9-10.8) Neutrophils (%) (Auto) 62.2 % (37.0-80.0) Lymphocytes (%) (Auto) 24.5 % (10.0-50.0) Monocytes (%) (Auto) 9.5 % (0.0-12.0) Eosinophils (%) (Auto) 3.6 % (0.0-7.0) Basophils (%) (Auto) 0.2 % (0.0-2.0) Neutrophils # (Auto) 3.3 10 ^3/uL (1.6-8.6) Lymphocytes # (Auto) 1.3 10 ^3/uL (0.4-5.4) Monocytes # (Auto) 0.5 10 ^3/uL (0-1.3) Eosinophils # (Auto) 0.2 10 ^3/uL (0-0.8) Basophils # (Auto) 0 10 ^3/uL (0-0.2) Nucleated Red Blood Cells 0.5 % Random Vancomycin Level 7.4 ug/mL (5-10) Test 12/30/24 12:07 12/30/24 05:44 12/29/24 11:58 12/29/24 11:48 Beta HCG, Quantitative 2.0 mIU/mL (1.5-4.2) Total Bilirubin 0.2 mg/dL (0.2-1.0) Aspartate Amino Transferase (AST) 16 U/L (13-40) Alanine Aminotransferase (ALT) 15 U/L (7-40) Alkaline Phosphatase 94 U/L (46-116) Total Protein 7.4 g/dL (5.7-8.2) Albumin 4.0 g/dL (3.2-4.8) Prothrombin Time 10.6 sec (9.3-11.8) Prothrombin Time INR 1.00 (0.9-1.15) Activated Partial Thromboplast Time 26.5 SEC (24.5-34.5) Urine Color Light-yellow (Yellow) Urine Clarity Clear (Clear) Urine pH 6.0 (5.0-9.0) Urine Specific [place] 1.036 (1.001-1.035) Urine Protein 1+ (Negative) Urine Ketones Negative (Negative) Urine Blood Negative /uL (Negative) Urine Nitrite Negative (Negative) Urine Bilirubin Negative (Negative) Urine Urobilinogen Normal mg/dL (Negative) Urine Leukocyte Esterase 2+ /uL (Negative) Urine RBC 3 /hpf (0 - 4) Urine Microscopic WBC 10 /HPF (0-5) Urine Squamous Epithelial Cells Mod /hpf (<5) Urine Bacteria Few /hpf (None Seen) Urine Mucus Few (None Seen) Urine Glucose Normal mg/dL (Normal) Other Laboratory Tests 01/01/25 05:13 12/31/24 05:27 Brief Hx & Hospital Course: Final diagnoses: Chronic nonhealing right lower extremity wound/ulcer cellulitis of RLE SLE not in exacerbation Obesity with a BMI 39.5 Acute complicated UTI/ cystitis Patient left AMA this morning Condition at Discharge: Undetermined Final Diagnosis/Problems List Chronic nonhealing right lower extremity wound/ulcer cellulitis of RLE SLE not in exacerbation Obesity with a BMI 39.5 Acute complicated UTI/ cystitis Discharge Disposition: AMA SNF Discharge Will this Physician continue t: No Discharge Instruct/Medications Scheduled PRN Hydrocodone-Acetaminophen (Hydrocodone/Acetaminophen 10-325 mg), 1 TAB PO QID PRN Miscellaneous Medications Ibuprofen Micronized (Ibuprofen), 800 MG PO, (Reported) Linezolid (Zyvox), 600 MG PO, (Reported) Discharge Statement: "Patient was advised to return to the ER or call 911 if any headaches, dizziness, shortness of breath, chest pain, abdominal pain, bleeding, fevers, or worsening of medical condition. Patient was counseled about treatment plan, medications, possible side effects, patientverbalized understanding. All questions were answered to the best of my ability. This discharge took greater then 30 minutes in planning, reviewing documentation, counseling the patient, and discussing with other team members." ASSESSMENT ASSESSMENT Assessment Same as preop Date of Service: Jan 02, 2025 Billing Provider: DAVI VARGAS MD Common Visit Codes: [id number]/OBS DISCH DAY <30MIN DAVI VARGAS MD Jan 02, 2025 17:49
== END 2025-01-02 10:50 | disposition left against medical advice (07) | DRG 361 ==
LOC: ER 11:25 → OVERFLOW 16:24 → WEST WING 22:49
PROVIDERS: ADMIT Internal Medicine Geriatric Medicine; ATTEND Internal Medicine Geriatric Medicine
PROC: 0HRKXK3 Replacement of Right Lower Leg Skin with Nonautologous Tissue Substitute, Full Thickness, External Approach (ICD-10-PCS; principal; 2024-12-31 12:27)
DX: L03.115 Cellulitis of right lower limb (principal); L97.919 Non-pressure chronic ulcer of unspecified part of right lower leg with unspecified severity; S81.801A Unspecified open wound, right lower leg, initial encounter; Z53.29 Procedure and treatment not carried out because of patient's decision for other reasons; E66.9 Obesity, unspecified; N30.90 Cystitis, unspecified without hematuria; M32.9 Systemic lupus erythematosus, unspecified; Z88.8 Allergy status to other drugs, medicaments and biological substances; Z68.39 Body mass index [BMI] 39.0-39.9, adult; Z79.1 Long term (current) use of non-steroidal anti-inflammatories (NSAID); Z79.899 Other long term (current) drug therapy; X58.XXXA Exposure to other specified factors, initial encounter; Y93.89 Activity, other specified; Y92.89 Other specified places as the place of occurrence of the external cause; Y99.8 Other external cause status
CPT/HCPCS: 36415; 71045; 80048; 80053; 80202; 81001; 83735; 84702; 85025; 85610; 85730; 86850; 86900; 86901; 87070; 87075; 87077; 87081; 87086; 87186; 87205; 96365; G0378; J0131; J0692; J2003; J2250; J2405; J2543; J2704

== ENCOUNTER 2025-01-12 12:09 | Inpatient (IN) | payer MEDICAID ==
[~2025-01-12] VITALS: Ht 170.2 cm; Wt 129.9 kg
[~2025-01-12 12:09] MED LIST changes: +LINE1TAB6 PO
--- NOTE | 2025-01-12 12:46 | ED.PDOC ---
History of Present Illness HPI Comments 39 y/o F, with PMHx of DM presents to the ED for CC of right lower extremity procedure. Patient states, she was sent by for pre-operative clearance d/t right lower leg skin graft procedure scheduled in x2days. Per patient, has additionally order a PICC line placement for administration of IV Abx. Patient denies fever, chills, nausea, vomiting, malaise, or Flu-like symptoms. No other symptoms or modifying factors are present at this time. Chief Complaint: Lower Extremity Time Seen by MD: 12:45 Primary Care Provider: ALEXA Reviewed Notes: Nurses Notes, Medications, Allergies Allergies: Coded Allergies: Doxycycline (Verified Allergy, Unknown, 12/15/24) Home Meds Active Scripts Hydrocodone-Acetaminophen (Hydrocodone/Acetaminophen 10-325 mg) 1 Tab Tab, 1 TAB PO QID PRN, #30 TAB Prov:SERGIO PICHARDO MD 04/22/24 Reported Medications Linezolid (Zyvox) 600 Mg Tab, 600 MG PO, TAB 12/30/24 Ibuprofen Micronized (Ibuprofen) 800 Mg Tab, 800 MG PO, TAB 06/22/24 Information Source: Patient Mode of Arrival: Wheelchair Severity: Moderate Timing: Days Duration: Since onset Prehospital treatment: None Past Medical History PAST MEDICAL HISTORY: DM Surgical History: S[employer]IOR [employer]OPER History: 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 Family History Family History: Reviewed,noncontributory to illness, No family hx of Heart liza, No family hx of HTN, No family hx ofKidney liza, No family hx of Liver liza, No family hx of Lung liza, No family hx of Stroke, Family hx of DM, Family hx of Cancer Social History Smoker: Non-Smoker Alcohol: Denies ETOH Use Drugs: Denies Drug Use Lives In: Home Constitutional: denies: chills, diaphoresis, fatigue, fever, malaise, sweats, weakness, others EENTM: denies: blurred vision, double vision, ear bleeding, ear discharge, ear drainage, ear pain, ear ringing, eye pain, eye redness, hearing loss, mouth pain, mouth swelling, nasal discharge, nose bleeding, nose congestion, nose pain, photophobia, tearing, throat pain, throat swelling, voice changes, others Respiratory: denies: cough, hemoptysis, orthopnea, SOB at rest, shortness of breath, SOB with excertion, stridor, wheezing, others Cardiovascular: denies: chest pain, dizzy spells, diaphoresis, Dyspnea on exertion, edema, irregular heart beat, left arm pain, lightheadedness, palpitations, PND, syncope, others Gastrointestinal: denies: abdomen distended, abdominal pain, blood streaked bowels, constipated, diarrhea, dysphagia, difficulty swallowing, hematemesis, melena, nausea, poor appetite, poor fluid intake, rectal bleeding, rectal pain, vomiting, others Genitourinary: denies: abnormal vagina bleeding, burning, dyspareunia, dysuria, flank pain, frequency, hematuria, incontinence, pain, , vagina discharge, urgency, others Neurological: denies: dizziness, fainting, headache, left sided numbness, left sided weakness, numbness, paresthesia, pre-existing deficit, right sided numbness, right sided weakness, seizure, speech problems, tingling, tremors, weakness, others Musculoskeletal: denies: back pain, gout, joint pain, joint swelling, muscle pain, muscle stiffness, neck pain, others Integumetry: denies: bruises, change in color, change in hair/nails, dryness, laceration, lesions, lumps, rash, wounds, others Allergic/Immunocompromised: denies: Difficulty Healing, Frequent Infections, Hives, Itching, others Hematologic/Lymphatic: denies: anemia, blood clots, easy bleeding, easy bruising, swollen glands, others Endocrine: denies: excessive hunger, excessive sweating, excessive thirst, excessive urination, flushing, intolerance to cold, intolerance to heat, unexplained weight gain, unexplained weight loss, others Psychiatric: denies: anxiety, bipolar disorder, depression, hopeless, panic disorder, schizophrenia, sleepless, suicidal, others All Other Systems: Reviewed and Negative Physical Exam General Appearance: Moderate Distress HEENT: Normal ENT Inspection, Pharynx Normal, TMs Normal Neck: Full Range of Motion, Non-Tender, Normal, Normal Inspection Respiratory: Chest Non-Tender, Lungs Clear, No Accessory Muscle Use, No Respiratory Distress, Normal Breath Sounds Cardiovascular: No Edema, No JVD, No Murmur, No Gallop, Normal Peripheral Pulses, Regular Rate/Rhythm Breast Exam: Deferred Gastrointestinal: No Organomegaly, Non Tender, No Pulsatile Mass, Normal Bowel Sounds, Soft Genitalia: Deferred Pelvic: Deferred Rectal: Deferred Extremities: Other (Right lower extremity) Musculoskeletal : Apperance: Normal Neurologic: Alert, No Motor Deficits, No Sensory Deficits Cerebellar Function: NOT DONE Reflexes: NOT DONE Skin: Normal Color Peripheral Pulses: 3+ Radial (R), 3+ Radial (L) Lymphatic: No Adenopathy Was a procedure done? Was a procedure done?: No Differential Dx Considerations may include: RIGHT LOWER LEG SKIN GRAFT, PRE-OPERATIVE CLEARANCE X-Ray, Labs, Meds, VS Vital Signs Date Time Temp Pulse Resp B/P (MAP) Pulse Ox O2 Delivery O2 Flow Rate FiO2 01/12/25 13:49 97.9 98 16 122/81 (95) 99 97.9 01/12/25 13:49 98 16 99 Room Air 01/12/25 12:11 97.5 113 16 119/72 99 97.5 Lab Test 01/12/25 15:09 Range/Units White Blood Count Pending Red Blood Count Pending Hemoglobin Pending Hematocrit Pending Mean Corpuscular Volume Pending Mean Corpuscular Hemoglobin Pending Mean Corpuscular Hemoglobin Concent Pending Red Cell Distribution Width Pending Platelet Count Pending Mean Platelet Volume Pending Neutrophils (%) (Auto) Pending Lymphocytes (%) (Auto) Pending Monocytes (%) (Auto) Pending Basophils (%) (Auto) Pending Neutrophils # (Auto) Pending Lymphocytes # (Auto) Pending Monocytes # (Auto) Pending Prothrombin Time Pending Prothrombin Time INR Pending Activated Partial Thromboplast Time Pending Sodium Level Pending Potassium Level Pending Chloride Level Pending Carbon Dioxide Level Pending Anion Gap Pending Blood Urea Nitrogen Pending Creatinine Pending Glomerular Filtration Rate Calc Pending BUN/Creatinine Ratio Pending Serum Glucose Pending Lactic Acid Level Pending Calcium Level Pending Total Bilirubin Pending Aspartate Amino Transferase (AST) Pending Alanine Aminotransferase (ALT) Pending Alkaline Phosphatase Pending Total Protein Pending Albumin Pending Current Medications Medications (Trade) Dose Ordered Sig/Jose Route Start Time Stop Time Status Last Admin Acetaminophen/ Hydrocodone Bitart ([place] 5/325MG Tab) 1 tab ONCE ONCE PO 01/12/25 13:45 01/12/25 13:46 DC 01/12/25 14:02 Patient alert. Complaining of infection of the right extremity. Vitals stable. Answering questions. She recently had a graft done. Infected. PICC line placement. Possible revision of the graft. Reviewed her previous visit. Continue to monitoring. Time of 1ST Reevaluation: 13:15 Reevaluation 1ST: Unchanged Patient Education/Counseling: Diagnosis, Treatment Family Education/Counseling: No Family Present SEPSIS Sepsis Screen Date sepsis recognized/suspect: Jan 12, 2025 Time Sepsis recognized/suspect: 1210 Recent Procedure: No On Antibiotic Therapy: No Respiratory Rate >20: No Heart Rate >90: Yes Temp<36 C (96.8 F) or >38.3 C: No SBP <90 or MAP <65 mmHG: No New Acute Mental Status Change: No Is the patient on CPAP, BIPAP,: No Physician Orders * Picc Line Consult (01/12/25 14:48) Complete Blood Count (01/12/25 14:48) Comprehensive Metabolic Panel (01/12/25 14:48) Urinalysis (01/12/25 14:48) Sodium Chloride 0.9% (01/12/25 15:00) PTPTT (01/12/25 14:54) Prothrombin Time W/ Inr (01/12/25 14:54) Lactic Acid W/ Reflex Order (01/12/25 15:16) Blood Culture (01/12/25 15:16) Vital Signs Date Time Temp Pulse Resp B/P (MAP) Pulse Ox O2 Delivery O2 Flow Rate FiO2 01/12/25 13:49 97.9 98 16 122/81 (95) 99 97.9 01/12/25 13:49 98 16 99 Room Air 01/12/25 12:11 97.5 113 16 119/72 99 97.5 Laboratory Tests Test 01/12/25 15:09 Lactic Acid Level Pending White Blood Count Pending Medications Medications Dose Ordered Sig/Jose Route Start Time Stop Time Status Last Admin Dose Admin Acetaminophen/ Hydrocodone Bitart 1 tab ONCE ONCE PO 01/12/25 13:45 01/12/25 13:46 DC 01/12/25 14:02 Departure 1 Departure Time of Disposition: 14:47 Impression: Primary Impression: Cellulitis Qualified Codes: L03.115 - Cellulitis of right lower limb Disposition: 09 ADMITTED INPATIENT Admit to: Med Surg Condition: Guarded Critical Care Note Critical Care Time?: Yes (90 min-critical care time only) Stability Stability form required: No Heart Score Heart Score: Heart Score Response (Comments) Value History N/A 0 EKG N/A 0 Age N/A 0 Risk Factors N/A 0 Troponin N/A 0 Total 0 I personally scribed for TEVIN DOZIER MD ([email or web address]) on 01/12/25 at 12:46. Electronically submitted by Cleo Calix ([email or web address]). I personally scribed for TEVIN DOZIER MD ([email or web address]) on 01/12/25 at 13:45. Electronically submitted by Cleo Calix ([email or web address]). TEVIN DOZIER MD Jan 12, 2025 12:46
[2025-01-12] MEDS: HYDROcodone-ACET 5/325MG TAB PO ONE (14:02)
[2025-01-12 15:26] LABS: Hematocrit 35.0 % (36.0-46.0); Hemoglobin 11.3 g/dL (12.2-16.2); Mean Corpuscular Hemoglobin 29.2 pg (28.0-32.0); Mean Corpuscular Volume 90.3 fL (80.0-100.0); Nucleated Red Blood Cells % 0.1 %
[2025-01-12 15:37] LABS: Alanine Aminotransferase 23 U/L (7-40); Albumin 4.4 g/dL (3.2-4.8); Alkaline Phosphatase 112 U/L (46-116); Anion Gap 11 (5-15); BUN/Creatinine Ratio 13.5 (10.0-20.0); Blood Urea Nitrogen 20 mg/dL (9-23); Calcium 9.7 mg/dL (8.7-10.4); Carbon Dioxide 23 mmol/L (20-31); Chloride 106 mmol/L (98-107); Glucose 90 mg/dL (74-106); Potassium 5.1 mmol/L (3.5-5.1); Sodium 140 mmol/L (136-145)
[2025-01-12 15:44] LABS: Bilirubin, Total 0.2 mg/dL (0.2-1.0); Total Protein 8.6 g/dL (5.7-8.2)
[2025-01-12] MEDS ORDERED: CEFEPIME 1GM/50ML 50 ML IV ONE (16:00)
[2025-01-12] MEDS ORDERED: VANCOMYCIN PER PHARMACY 0 MG IV SCH (16:00)
[2025-01-12] MEDS: SODIUM CHLORIDE 0.9% 1,000 ML IV ONE ×3 (16:00→18:00)
--- NOTE | 2025-01-12 16:13 | DVHHPRES ---
History of Present Illness Resident Creating Document: AIRAM CARRILLO RESIDENT Reason for Visit: right leg wound History of Present Illness This is a 39-year-old female who came into the ED with chief complain of right lower leg wound. PMH: SLE. PSH: , recent skin graft off right lower leg. FH: Noncontributory SH: Denies smoking nicotine, occasional alcohol use, occasional cannabis use, denies any illicit drug use Home medications: Tramadol and ibuprofen Allergies: Doxycycline Patient stated that she was recently seen by Dr. Still for preoperative clearance of right lower leg skin graft procedure. She currently states developing sensation of warmness throughout her body, low appetite, generalized weakness, constipation. She mentions having moderate to severe right leg pain on the surgical site. Pain being controlled with tramadol and ibuprofen. She currently denies any significant chills, fever, chest pain, shortness of breath, abdominal pain, nausea, vomiting. She was hospitalized 2 times in the last month with the same concern of her chronic wound, both times she left AMA. In her last culture she was growing Klebsiella and Pseudomonas in the wound sensitive to cefepime. On my initial examination, patient was seen and examined at bedside. She continues to complain about right leg pain, generalized weakness, she denies any other significant symptoms. Patient was given IV fluids and [place] in the ED. Review of Systems Constitutional: Yes: Weakness; No: Fever, Chills, Sweats, Malaise, Other Eyes: No: Pain, Vision change, Conjunctivae inflammation, Eyelid inflammation, Other, Redness ENT: No: Ear pain, Ear discharge, Nose pain, Nose discharge, Nose congestion, Mouth pain, Mouth swelling, Throat pain, Throat swelling, Other Respiratory: No: Cough, Dry, Shortness of breath, SOB with excertion, Wheezing, Hemoptysis, Pleuritic Pain, Sputum, Wheezing, Other Cardiovascular: No: Chest Pain, Palpitations, Orthopnea, Paroxysmal Noc. Dyspnea, Edema, Lt Headedness, Other Gastrointestinal: No: Nausea, Vomiting, Abdominal Pain, Diarrhea, Constipation, Melena, Hematochezia, Other Genitourinary: No Dysuria, No Frequency, No Incontinence, No Hematuria, No Retention, No Other Musculoskeletal: No: other, neck pain, shoulder pain, arm pain, back pain, hand pain, leg pain, foot pain Skin: Lesions; No: Rash, Jaundice, Bruising, Other Neurological: No: Weakness, Numbness, Incoordination, Change in speech, Confusion, Seizures, Other Allergies: Coded Allergies: Doxycycline (Verified Allergy, Unknown, 12/15/24) Medications Current Medications Medications Dose Ordered Sig/Jose Route Start Time Stop Time Status Last Admin Dose Admin Acetaminophen/ Hydrocodone Bitart 1 tab Q4HP PRN PO 01/12/25 16:00 UNV Ondansetron HCl 4 mg Q4HP PRN IV 01/12/25 16:00 UNV Docusate Sodium 100 mg BIDPRN PRN PO 01/12/25 16:00 UNV Morphine Sulfate 2 mg Q4HPRN PRN IV 01/12/25 16:00 UNV Cefepime HCl 50 ml @ 12.5 mls/hr Q12HR IV 01/12/25 22:00 UNV Vancomycin HCl 0 ml @ 0 mls/hr UD IV 01/12/25 16:00 UNV Exam Vital Signs Vital Signs Date Time Temp Pulse Resp B/P (MAP) Pulse Ox O2 Delivery O2 Flow Rate FiO2 01/12/25 13:49 97.9 98 16 122/81 (95) 99 97.9 01/12/25 13:49 Room Air Exam Physical examination as below: General: Awake, alert, comfortable appearing, in no acute distress. HEENT: Head is normocephalic and atraumatic. Pupils are equal, round, and reactive to light. Extraocular muscles are intact. No nasal discharge. No facial trauma. Intraoral exam shows moist mucous membranes with no tonsillar enlargement or exudate. Neck: Supple with no cervical lymphadenopathy. Heart: Regular rate without murmur, rub, or gallop. Lungs: Equal breath sounds bilaterally with no wheezing, rales, or rhonchi. There is no chest wall tenderness or instability. Abdomen: No external sign of injury. Bowel sounds are present. Abdomen is soft, nontender. No rebound, no guarding, no rigidity. There are no palpable masses. There is no flank pain on exam. Extremities: Strong peripheral pulses. There is no clubbing, no cyanosis, and no edema. Right lower leg is wrapped on at resident, draining yellow fluid Skin: right lower leg ulcer, nonhealing with the granulation tissue approximately 5 x 10 cm Neurologic: Cranial nerves II-XII intact without motor, sensory, or cerebellar deficit, no asterixis. Labs/Xrays Labs Test 01/12/25 15:09 Range/Units White Blood Count 8.9 4.4-10.8 10^3/uL Red Blood Count 3.87 L 4.0-5.20 10^6/uL Hemoglobin 11.3 L 12.2-16.2 g/dL Hematocrit 35.0 L 36.0-46.0 % Mean Corpuscular Volume 90.3 80.0-100.0 fL Mean Corpuscular Hemoglobin 29.2 28.0-32.0 pg Mean Corpuscular Hemoglobin Concent 32.3 32.0-36.0 g/dL Red Cell Distribution Width 19.3 H 11.8-14.3 % Platelet Count 396 140-450 10^3/uL Mean Platelet Volume 8.3 6.9-10.8 fL Neutrophils (%) (Auto) 67.0 37.0-80.0 % Lymphocytes (%) (Auto) 21.8 10.0-50.0 % Monocytes (%) (Auto) 6.3 0.0-12.0 % Eosinophils (%) (Auto) 4.6 0.0-7.0 % Basophils (%) (Auto) 0.3 0.0-2.0 % Neutrophils # (Auto) 5.9 1.6-8.6 10 ^3/uL Lymphocytes # (Auto) 1.9 0.4-5.4 10 ^3/uL Monocytes # (Auto) 0.6 0-1.3 10 ^3/uL Eosinophils # (Auto) 0.4 0-0.8 10 ^3/uL Basophils # (Auto) 0 0-0.2 10 ^3/uL Nucleated Red Blood Cells 0.1 % Sodium Level 140 136-145 mmol/L Potassium Level 5.1 3.5-5.1 mmol/L Chloride Level 106 98-107 mmol/L Carbon Dioxide Level 23 20-31 mmol/L Anion Gap 11 5-15 Blood Urea Nitrogen 20 9-23 mg/dL Creatinine 1.48 H 0.550-1.02 mg/dL Glomerular Filtration Rate Calc 46 >90 mL/min BUN/Creatinine Ratio 13.5 10.0-20.0 Serum Glucose 90 74-106 mg/dL Lactic Acid Level 0.6 0.4-2.0 mmol/L Calcium Level 9.7 8.7-10.4 mg/dL Total Bilirubin 0.2 0.2-1.0 mg/dL Aspartate Amino Transferase (AST) 20 13-40 U/L Alanine Aminotransferase (ALT) 23 7-40 U/L Alkaline Phosphatase 112 46-116 U/L Total Protein 8.6 H 5.7-8.2 g/dL Albumin 4.4 3.2-4.8 g/dL SEPSIS Sepsis Screen Date sepsis recognized/suspect: Jan 12, 2025 Time Sepsis recognized/suspect: 1210 Recent Procedure: No On Antibiotic Therapy: No Respiratory Rate >20: No Heart Rate >90: Yes Temp<36 C (96.8 F) or >38.3 C: No SBP <90 or MAP <65 mmHG: No New Acute Mental Status Change: No Is the patient on CPAP, BIPAP,: No Physician Orders * Picc Line Consult (01/12/25 14:48) Urinalysis (01/12/25 14:48) PTPTT (01/12/25 14:54) Prothrombin Time W/ Inr (01/12/25 14:54) Blood Culture (01/12/25 15:16) Admit (01/12/25 15:56) Allergies (01/12/25 15:56) Code Status (01/12/25 15:56) Hydrocodone-Acet 5/325mg Tab ([place] 5/32 (01/12/25 16:00) Ondansetron Hcl (Zofran) (01/12/25 16:00) Docusate Sodium Capsule (Colace Capsule) (01/12/25 16:00) Complete Blood Count (01/13/25 04:00) Comprehensive Metabolic Panel (01/13/25 04:00) Condition: Fair (01/12/25 15:56) Morphine Sulfate Injection (01/12/25 16:00) Notify Of Changes From Base (01/12/25 15:56) Polyethylene Glycol 17g Powder (Miralax (01/12/25 16:00) Bisacodyl Ec Tablet (Dulcolax Ec Tablet) (01/12/25 16:00) Sodium Chloride 0.9% (01/12/25 16:00) Sodium Chloride 0.9% (01/12/25 16:00) Cefepime 1gm/50ml (Maxipime 1gm/50ml) (01/12/25 22:00) Cefepime 1gm/50ml (Maxipime 1gm/50ml) (01/12/25 16:00) Vancomycin Per Pharmacy (01/12/25 16:00) Chest Xray 1 View (01/12/25 15:56) Beta Hcg, Quantitative (01/12/25 15:56) Drug Screen (01/12/25 15:56) Erythrocyte Sedimentation Rate (01/12/25 15:56) C-Reactive Protein (01/12/25 15:56) *Podiatry Consult Bennie([facility]) (01/12/25 15:56) Npo (Nothing By Mouth) Diet (01/13/25 Breakfast) Regular Diet (01/12/25 Dinner) Vital Signs Date Time Temp Pulse Resp B/P (MAP) Pulse Ox O2 Delivery O2 Flow Rate FiO2 01/12/25 13:49 97.9 98 16 122/81 (95) 99 97.9 01/12/25 13:49 98 16 99 Room Air 01/12/25 12:11 97.5 113 16 119/72 99 97.5 Laboratory Tests Test 01/12/25 15:09 Lactic Acid Level 0.6 mmol/L (0.4-2.0) White Blood Count 8.9 10^3/uL (4.4-10.8) Medications Medications Dose Ordered Sig/Jose Route Start Time Stop Time Status Last Admin Dose Admin Acetaminophen/ Hydrocodone Bitart 1 tab ONCE ONCE PO 01/12/25 13:45 01/12/25 13:46 DC 01/12/25 14:02 1 TAB Assessment/Plan Assessment/Plan #Right lower leg cellulitis, growing Pseudomonas and Klebsiella #Chronic nonhealing wound on right lower leg Admit to med surge IV fluids, 125 mL NS Cefepime 2 g IV b.i.d. Vancomycin IV Podiatry consult placed Keep NPO after midnight Blood culture pending Lactic acid within normal limits, pending ESR and CRP Pain management with morphine and [place] as needed #Anemia normocytic normochromic, mild Monitor #Acute constipation Colace b.i.d. p.r.n. Dulcolax 10 mg p.o. once MiraLax 17 g p.o. 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 FULL CODE. Case was discussed with Dr. Galvez Plan discussed with: Patient, Other (RN) My Orders Orders - AIRAM CARRILLO RESIDENT Procedure Category Date Status Time Admit ADMIT 01/12/25 Transmitted 15:56 Allergies RIO 01/12/25 In Process 15:56 Code Status CODE 01/12/25 Transmitted 15:56 Hydrocodone-Acet PHA 01/12/25 Logged 5/325mg Tab ([place] 16:00 Ondansetron Hcl PHA 01/12/25 Logged (Zofran) 16:00 Docusate Sodium PHA 01/12/25 Logged Capsule (Colace 16:00 Complete Blood Count LAB 01/13/25 Verified 04:00 Comprehensive LAB 01/13/25 Verified Metabolic Panel 04:00 Condition: Fair RIO 01/12/25 In Process 15:56 Morphine Sulfate PHA 01/12/25 Logged Injection 16:00 Notify Of Changes RIO 01/12/25 In Process From Base 15:56 Polyethylene Glycol PHA 01/12/25 Logged 17g Powder (Miralax 16:00 Bisacodyl Ec Tablet PHA 01/12/25 Logged (Dulcolax Ec Tablet) 16:00 Sodium Chloride 0.9% PHA 01/12/25 Logged 16:00 Sodium Chloride 0.9% PHA 01/12/25 Logged 16:00 Cefepime 1gm/50ml PHA 01/12/25 Logged (Maxipime 1gm/50ml) 22:00 Cefepime 1gm/50ml PHA 01/12/25 Logged (Maxipime 1gm/50ml) 16:00 Vancomycin Per PHA 01/12/25 Logged Pharmacy 16:00 Chest Xray 1 View XY 01/12/25 Logged 15:56 Beta Hcg, Quantitative LAB 01/12/25 Logged 15:56 Drug Screen LAB 01/12/25 Logged 15:56 Erythrocyte LAB 01/12/25 Logged Sedimentation Rate 15:56 C-Reactive Protein LAB 01/12/25 Logged 15:56 *Podiatry Consult CONS 01/12/25 Transmitted [facility]([facility]) 15:56 Npo (Nothing By DIET 01/13/25 Transmitted Mouth) Diet Breakfast Regular Diet DIET 01/12/25 Transmitted Dinner Date of Service: Jan 12, 2025 Billing Provider: DAVI GALVEZ MD Common Visit Codes: 92166-CCXFMKD INP/OBS CARE (HIGH) Secondary Visit Codes: 83860-[id number] CARE PLAN 30 MINUTES AIRAM CARRILLO RESIDENT Jan 12, 2025 16:13 DAVI GALVEZ MD Jan 19, 2025 20:14
[2025-01-12 16:19] LABS: INR 1.04 (0.9-1.15); Partial Thromboplastin Time 30.4 SEC (24.5-34.5); Prothrombin Time 11.0 sec (9.3-11.8)
[2025-01-12 16:33] VITALS: PULSE 86; RESP 17; O2SAT 99
[2025-01-12] MEDS: CEFEPIME 2GM/50ML NS 50 ML IV ONE (16:54)
[2025-01-12] MEDS: MORPHINE SULFATE 4 MG/ML SYR/VIAL IV PRN (16:55)
[2025-01-12] MEDS: ONDANSETRON HCL 4 MG/2 ML VIAL IV PRN (16:55)
--- NOTE | 2025-01-12 17:02 | DVH ---
CHEST RADIOGRAPH Indication: sob Technique: Single frontal view of the chest was obtained Comparison: XY CHEST PORTABLE on DOS: 12/30/24 FINDINGS: Lines and Tubes: None Lungs: No focal consolidation. Pleura: No effusion. No pneumothorax. Cardiomediastinal contours: Unremarkable Bones: No acute osseous abnormality. IMPRESSION: 1. No acute cardiopulmonary disease.
[2025-01-12] MEDS: LIDOCAINE 1% (LOCAL ANESTH.) PF 5ml SDV ID ONE (17:30)
[2025-01-12 17:45] VITALS: BP 145/62; PULSE 90; RESP 16; TEMP 97.9; O2SAT 96
[2025-01-12] MEDS: VANCOMYCIN 1.5GM/250ML 250 ML IV ONE (18:13)
[2025-01-12] MEDS: POLYETHYLENE GLYCOL 17 GM PWDR PO ONE (18:13)
[2025-01-12] MEDS: BISACODYL 5 MG EC TAB PO ONE (18:14)
[2025-01-12 20:00] VITALS: PULSE 96; RESP 18
[2025-01-12 20:20] LABS: Urine Protein, UAD TRACE (Negative)
[2025-01-12 21:00] VITALS: BP 125/78; PULSE 96; RESP 14; TEMP 97.5; O2SAT 98
[2025-01-12 21:00] LABS: Cannabinoid Screen, Urine Neg (NEGATIVE); Opiate Scree,Urine Neg (NEGATIVE)
[2025-01-12 21:01] LABS: Amphetamine Screen, Urine Neg (NEGATIVE); Barbiturate Scree,Urine Neg (NEGATIVE); Benzodiazephine Screen, Urine Neg (NEGATIVE); Cocaine Screen, Urine Neg (NEGATIVE); Phencyclidine Screen, Urine Neg (NEGATIVE)
[2025-01-12] MEDS ORDERED: CEFEPIME 1GM/50ML 50 ML IV SCH (22:00)
[2025-01-12] MEDS: SODIUM CHLOR 0.9% PF (SALINE LOCK) 10ML VIAL/SYR IV SCH (22:15)
[2025-01-12] MEDS: HYDROcodone-ACET 5/325MG TAB PO PRN (22:43)
[2025-01-13] VITALS (7 sets, daily range): BP systolic 95–138; BP diastolic 55–86; PULSE 86–121; RESP 11–20; TEMP 97.4–98.4; O2SAT 97–99
[2025-01-13 07:41] LABS: Hematocrit 32.2 % (36.0-46.0); Hemoglobin 10.6 g/dL (12.2-16.2); Mean Corpuscular Hemoglobin 29.6 pg (28.0-32.0); Mean Corpuscular Volume 90.1 fL (80.0-100.0); Nucleated Red Blood Cells % 0.1 %
[2025-01-13 07:57] LABS: Alanine Aminotransferase 18 U/L (7-40); Alkaline Phosphatase 97 U/L (46-116); Calcium 8.9 mg/dL (8.7-10.4)
[2025-01-13 07:58] LABS: Albumin 3.9 g/dL (3.2-4.8); Anion Gap 10 (5-15); BUN/Creatinine Ratio 14.4 (10.0-20.0); Bilirubin, Total 0.3 mg/dL (0.2-1.0); Blood Urea Nitrogen 18 mg/dL (9-23); Carbon Dioxide 21 mmol/L (20-31); Glucose 102 mg/dL (74-106); Potassium 4.5 mmol/L (3.5-5.1); Sodium 140 mmol/L (136-145); Total Protein 7.4 g/dL (5.7-8.2)
[2025-01-13 08:05] LABS: Chloride 109 mmol/L (98-107)
--- NOTE | 2025-01-13 09:43 | DVHCONRES ---
Date Seen: Jan 13, 2025 Reason for Consultation Right leg wound History of Present Illness Patient stated that she was recently seen by Dr. Still for preoperative clearance of right lower leg skin graft procedure. She currently states developing sensation of warmness throughout her body, low appetite, generalized weakness, constipation. She mentions having moderate to severe right leg pain on the surgical site. Pain being controlled with tramadol and ibuprofen. She currently denies any significant chills, fever, chest pain, shortness of breath, abdominal pain, nausea, vomiting. She was hospitalized 2 times in the last month with the same concern of her chronic wound, both times she left AMA. In her last culture she was growing Klebsiella and Pseudomonas in the wound sensitive to cefepime. On my initial examination, patient was seen and examined at bedside. She continues to complain about right leg pain, generalized weakness, she denies any other significant symptoms. Patient was given IV fluids and Bomb[place] in the ED. Past Medical History See H&P Past Surgical History See H&P Family History: Diabetes mellitus G8 MOTHER FH: breast cancer G8 MOTHER Allergies: Coded Allergies: Doxycycline (Verified Allergy, Unknown, 12/15/24) Home Meds Active Scripts Hydrocodone-Acetaminophen (Hydrocodone/Acetaminophen 10-325 mg) 1 Tab Tab, 1 TAB PO QID PRN, #30 TAB Prov:SERGIO PICHARDO MD 04/22/24 Reported Medications Linezolid (Zyvox) 600 Mg Tab, 600 MG PO, TAB 12/30/24 Ibuprofen Micronized (Ibuprofen) 800 Mg Tab, 800 MG PO, TAB 06/22/24 Current Medications Current Medications Medications (Trade) Dose Ordered Sig/Jose Route PRN Reason Start Time Stop Time Status Last Admin Acetaminophen/ Hydrocodone Bitart ([place] 5/325MG Tab) 1 tab Q4HP PRN PO MODERATE PAIN (4-6 PAIN SCALE) 01/12/25 16:00 01/12/25 22:43 Ondansetron HCl (Zofran) 4 mg Q4HP PRN IV NAUSEA / VOMITING 01/12/25 16:00 01/12/25 16:55 Docusate Sodium (Colace Capsule) 100 mg BIDPRN PRN PO FOR CONSTIPATION 01/12/25 16:00 Morphine Sulfate 2 mg Q4HPRN PRN IV SEVERE PAIN (7-10 PAIN SCALE) 01/12/25 16:00 01/13/25 05:18 Cefepime HCl 50 ml @ 12.5 mls/hr Q12HR IV 01/12/25 22:00 UNV Vancomycin HCl 0 ml @ 0 mls/hr UD IV 01/12/25 16:00 Cefepime HCl 50 ml @ 12.5 mls/hr Q12HR IV 01/13/25 10:00 Sodium Chloride (Saline Lock Ns) 10 ml QSHIFT@10,22 IV 01/12/25 22:00 01/12/25 22:15 Vital Signs Vital Signs Date Time Temp Pulse Resp B/P (MAP) Pulse Ox O2 Delivery O2 Flow Rate FiO2 01/13/25 05:48 105 16 126/57 01/13/25 05:00 97.4 98 97.4 01/12/25 20:00 Room Air* 0 21 Physical Exam Dermatological: Skin is dry with mild erythema and some maceration around the wound site No gross deformities noted Mild non-pitting edema present bilaterally Significant right anterior leg with fibrosis and malodor Vascular: Dorsalis pedis and posterior tibial pulses are 1+ bilaterally Capillary refill is under 2 seconds Skin temperature is warm bilaterally Neurologic: Protective sensation is absent on the plantar forefoot bilaterally Monofilament testing reveals decreased sensation in multiple plantar sites Musculoskeletal: Range of motion at the ankle and MTP joints is within normal limits. Strength is 5/5 in all tested muscle groups. Gait is antalgic due to offloading of the affected limb. Labs/Diagnostic Data Labs Test 01/13/25 06:45 01/12/25 15:56 01/12/25 15:09 01/12/25 14:48 Range/Units White Blood Count 7.6 4.4-10.8 10^3/uL Red Blood Count 3.57 L 4.0-5.20 10^6/uL Hemoglobin 10.6 L 12.2-16.2 g/dL Hematocrit 32.2 L 36.0-46.0 % Mean Corpuscular Volume 90.1 80.0-100.0 fL Mean Corpuscular Hemoglobin 29.6 28.0-32.0 pg Mean Corpuscular Hemoglobin Concent 32.8 32.0-36.0 g/dL Red Cell Distribution Width 19.5 H 11.8-14.3 % Platelet Count 340 140-450 10^3/uL Mean Platelet Volume 8.4 6.9-10.8 fL Neutrophils (%) (Auto) 81.5 H 37.0-80.0 % Lymphocytes (%) (Auto) 9.6 L 10.0-50.0 % Monocytes (%) (Auto) 4.6 0.0-12.0 % Eosinophils (%) (Auto) 4.1 0.0-7.0 % Basophils (%) (Auto) 0.2 0.0-2.0 % Neutrophils # (Auto) 6.2 1.6-8.6 10 ^3/uL Lymphocytes # (Auto) 0.7 0.4-5.4 10 ^3/uL Monocytes # (Auto) 0.4 0-1.3 10 ^3/uL Eosinophils # (Auto) 0.3 0-0.8 10 ^3/uL Basophils # (Auto) 0 0-0.2 10 ^3/uL Nucleated Red Blood Cells 0.1 % Sodium Level 140 136-145 mmol/L Potassium Level 4.5 3.5-5.1 mmol/L Chloride Level 109 H 98-107 mmol/L Carbon Dioxide Level 21 20-31 mmol/L Anion Gap 10 5-15 Blood Urea Nitrogen 18 9-23 mg/dL Creatinine 1.25 H 0.550-1.02 mg/dL Glomerular Filtration Rate Calc 57 >90 mL/min BUN/Creatinine Ratio 14.4 10.0-20.0 Serum Glucose 102 74-106 mg/dL Calcium Level 8.9 8.7-10.4 mg/dL Total Bilirubin 0.3 0.2-1.0 mg/dL Aspartate Amino Transferase (AST) 22 13-40 U/L Alanine Aminotransferase (ALT) 18 7-40 U/L Alkaline Phosphatase 97 46-116 U/L Total Protein 7.4 5.7-8.2 g/dL Albumin 3.9 3.2-4.8 g/dL Random Vancomycin Level 14.9 H 5-10 ug/mL Urine Opiates Screen Neg NEGATIVE Urine Fentanyl Screen Neg NEGATIVE Urine Barbiturates Screen Neg NEGATIVE Urine Phencyclidine Screen Neg NEGATIVE Urine Amphetamines Screen Neg NEGATIVE Urine Benzodiazepines Screen Neg NEGATIVE Urine Cocaine Screen Neg NEGATIVE Urine Cannabinoids Screen Neg NEGATIVE Erythrocyte Sedimentation Rate 89 H 0-20 mm/hr Prothrombin Time 11.0 9.3-11.8 sec Prothrombin Time INR 1.04 0.9-1.15 Activated Partial Thromboplast Time 30.4 24.5-34.5 SEC Lactic Acid Level 0.6 0.4-2.0 mmol/L C-Reactive Protein High Sensitivity 7.80 H <1.0 mg/dL Beta HCG, Quantitative 1.5 1.5-4.2 mIU/mL Urine Color Light-yellow Yellow Urine Clarity Turbid H Clear Urine pH 6.0 5.0-9.0 Urine Specific Lewis 1.017 1.001-1.035 Urine Protein Trace H Negative Urine Ketones Negative Negative Urine Blood Negative Negative /uL Urine Nitrite Negative Negative Urine Bilirubin Negative Negative Urine Urobilinogen Normal Negative mg/dL Urine Leukocyte Esterase Trace Negative /uL Urine RBC 1 0 - 4 /hpf Urine Microscopic WBC 14 H 0-5 /HPF Urine Squamous Epithelial Cells Mod <5 /hpf Urine Bacteria Few H None Seen /hpf Urine Hyaline Casts Few 0 - 2 /lpf Urine Glucose Normal Normal mg/dL Problems(with codes): (1) Generalized weakness (2) Non-healing ulcer of lower leg (3) History of systemic lupus erythematosus (4) Open leg wound (5) Intractable pain (6) Chronic wound (7) Cellulitis Plan/Recommendation ASSESSMENT: Patient is a 39 year old seen on the floor for a worsening ulcer PLAN: - The patients chart was reviewed, clinical findings were discussed with the patient, the etiologies of the conditions were discussed in detail, and a treatment plan was agreed to at this time, with both oral and written instructions provided. - reviewed advanced imaging - discussed plan is to perform an incision and drainage - patient has been NPO since midnight - take taken to the OR today - we will get cultures in the OR - can weightbear as tolerated in postoperative shoe All questions were answered and concerns addressed to the patient's satisfaction. The patient was given the phone number to the clinic and was told how to make contact with the clinic should any concerns or questions arise. Patient understands that if any questions or concerns arise prior to the next appointment, we should be contacted immediately. FOLLOW-UP: Continue to follow while inpatient Plan discussed with: Patient Visit Coding Podiatry Date of Service if different f: Jan 13, 2025 Billing Provider: ELBA ESTRADA DPM Podiatry Common Visit Codes: CONSULT ONLY Podiatry Consult Codes: [id number]/OBS [id number] NEW/EST HI 80 ELBA ESTRADAM Jan 13, 2025 09:43
[2025-01-13] MEDS: SODIUM CHLORIDE 0.9% 1,000 ML IV ONE ×2 (10:06→11:03)
[2025-01-13] MEDS: CEFEPIME 2GM/50ML NS 50 ML IV SCH (10:14)
[2025-01-13] MEDS ORDERED: fentaNYL CITRATE 100 MCG/2 ML VL ONE (11:44)
[2025-01-13] MEDS ORDERED: PROPOFOL 10 MG/ML 20 ML IV ONE (11:44)
[2025-01-13] MEDS ORDERED: HYDROmorphone HCL 2 MG/ML VL/or syr ONE (11:45)
[2025-01-13] MEDS ORDERED: ONDANSETRON HCL 4 MG/2 ML VIAL ONE (12:13)
--- NOTE | 2025-01-13 12:17 | DVHOP2 ---
Operative Report - 2 Report Details Date: 01/13/25 Preop Diagnosis: 1. Right leg chronic ulcer 2. Right leg cellulitis 3. Right leg pain Postop Diagnosis: Same as preop Surgeon: Elba Estrada MD Anesthesiologist: See anesthesia Anesthesia: General Consent: The patient was informed of the risks and benefits of the procedure. These include but are not limited to complications of anesthesia, postoperative infection, incomplete relief of symptoms, recurrence of symptoms, damage to blood vessels, nerves and tendons, deep venous thrombosis, pulmonary embolism and possible need for repeat surgery in the future. Complications: None Estimated Blood Loss: Minimal Fluids: See anesthesia Findings: Consistent with diagnosis Indications for Surgery: Worsening right leg wound Name of Procedure Performed 1. Right leg debridement (56036) Procedure Details Procedure Details: PRE-PROCEDURE INFORMATION: In the pre-op holding area, the extremity to be operated on was clearly marked and the patient verified correct laterality of the marking. The patient was transferred to the OR table and placed in a supine position. A timeout was performed in which identification of the correct pat ient, procedure, location, and materials was done. The right leg foot and leg were prepped and draped in normal sterile fashion. DESCRIPTION OF PROCEDURE: Attention was directed to the right anterior leg where the chronic ulceration was located. Using a 15 Blade and curette, debridement was performed down to the level of the muscle fascial layer. Significant fibrosis and bilayer was noted. The area was then flushed with 3 L of normal saline. It was dressed with Xeroform, 4x4s, ABD, Pako deep cultures were taken. POSTOPERATIVE INFORMATION: The patient tolerated the above noted procedure and anesthesia well and was transferred to the PACU with vital signs stable, and vascular status intact with capillary refill intact to all digits. Patient will return to the floor and continue IV antibiotics. Deep cultures were taken. Patient will need 6 weeks IV antibiotics. Dressing change Xeroform, 4x4s, ABD, Pako. Placed PICC line and follow up with the next week Condition Good Disposition Still a Patient Visit Coding Podiatry Date of Service if different f: Jan 13, 2025 Billing Provider: ELBA ESTRADA DPM Podiatry Common Visit Codes: PROCEDURE ONLY ELBA ESTRADA DPM Jan 13, 2025 12:17
[2025-01-13] MEDS: HYDROmorphone HCL 2 MG/ML VL/or syr IV PRN (12:25)
[2025-01-13] MEDS ORDERED: ONDANSETRON HCL 4 MG/2 ML VIAL IV PRN (12:30)
[2025-01-13] MEDS: ACETAMINOPHEN IV 1000 MG/100ML (10MG/ML) IV PRN (12:39)
[2025-01-13] MEDS ORDERED: VANCOMYCIN 1.25GM/250ML 250 ML IV SCH (13:00)
[2025-01-13] MEDS: fentaNYL CITRATE 100 MCG/2 ML VL IV PRN (13:05)
--- NOTE | 2025-01-13 13:40 | DVHPNRES ---
Progress Note Date Seen: Jan 13, 2025 Resident Creating Document: VENU LIZ Medical Necessity Reason Pt with a Central, PICC or Fol: No Subjective Review of Systems Patient is a 39-year-old male with past medical history of SLE, T2DM presented to [facility] ED with complaint of right lower leg wound. The patient reported that she was recently evaluated by Dr. Avery for preoperative clearance related to a right lower leg skin graft procedure. She currently describes a sensation of warmth throughout her body, decreased appetite, generalized weakness, and constipation. She also reports moderate to severe pain at the surgical site on her right leg, which is being managed with tramadol and ibuprofen. She denies experiencing significant chills, fever, chest pain, shortness of breath, abdominal pain, nausea, or vomiting. The patient has been hospitalized twice in the past month due to concerns related to her chronic wound; on both occasions, she left against medical advice (AMA). Her most recent wound culture revealed growth of Klebsiella and Pseudomonas, both sensitive to cefepime. On initial examination, the patient was evaluated at the bedside. She continues to complain of right leg pain and generalized weakness but denies any other significant symptoms. In the emergency department, she was administered IV fluids and Cando. Past surgical history: , recent skin graft off right lower leg (12/31/24) Home medications: Tramadol and ibuprofen Social & Personal history: Denies smoking nicotine, occasional alcohol use, occasional cannabis use, denies any illicit drug use Allergies: Doxycycline Patient seen and examined at bedside. Patient is alert and oriented to time, place person and responding to all questions. Constitutional: Yes: Weakness; No: Fever, Chills, Sweats, Malaise, Other Eyes: No Pain, No Vision change, No Conjunctivae inflammation, No Eyelid inflammation, No Other, No Redness ENT: No Ear pain, No Ear discharge, No Nose pain, No Nose discharge, No Nose congestion, No Mouth pain, No Mouth swelling, No Throat pain, No Throat swelling, No Other Cardiovascular: No Chest Pain, No Palpitations, No Orthopnea, No Paroxysmal No Dyspnea, No Edema, No Lt Headedness, No Other Respiratory: No Cough, No Dry, No Shortness of breath, No SOB with exertion, No Wheezing, No Hemoptysis, No Pleuritic Pain, No Sputum, No Other Gastrointestinal: Constipation. No Nausea, No Vomiting, No Abdominal Pain, No Diarrhea, No Melena, No Hematochezia, No Other Genitourinary: No Dysuria, No Frequency, No Incontinence, No Hematuria, No Retention, No Other Musculoskeletal: Foot pain. No other, No neck pain, No shoulder pain, No arm pain, No back pain, No hand pain, No leg pain Skin: No Rash, No Lesions, No Jaundice, No Bruising, No Other Objective vital signs Vital Sign Date Time Temp Pulse Resp B/P (MAP) Pulse Ox O2 Delivery O2 Flow Rate FiO2 01/13/25 10:07 103 16 119/66 01/13/25 05:00 97.4 98 97.4 01/12/25 20:00 Room Air* 0 21 Total Intake and Output 01/12/25 01/12/25 01/13/25 15:00 23:00 07:00 Intake Total 250 ml 1100 ml Balance 250 ml 1100 ml medications Current Medications Medications Dose Ordered Sig/Jose Route Start Time Stop Time Status Last Admin Dose Admin Acetaminophen/ Hydrocodone Bitart 1 tab Q4HP PRN PO 01/12/25 16:00 01/12/25 22:43 1 TAB Ondansetron HCl 4 mg Q4HP PRN IV 01/12/25 16:00 01/12/25 16:55 4 MG Docusate Sodium 100 mg BIDPRN PRN PO 01/12/25 16:00 Cefepime HCl 50 ml @ 12.5 mls/hr Q12HR IV 01/12/25 22:00 UNV Vancomycin HCl 0 ml @ 0 mls/hr UD IV 01/12/25 16:00 Cefepime HCl 50 ml @ 12.5 mls/hr Q12HR IV 01/13/25 10:00 01/13/25 10:14 12.5 MLS/HR Sodium Chloride 10 ml QSHIFT@10,22 IV 01/12/25 22:00 01/13/25 10:15 10 ML Morphine Sulfate 3 mg Q4HPRN PRN IV 01/13/25 10:30 Vancomycin HCl 250 ml @ 200 mls/hr Q12H IV 01/13/25 15:00 Fentanyl Citrate 25 mcg [id number] PRN IV 01/13/25 13:00 Examination General: Awake, alert, comfortable appearing, in no acute distress. HEENT: Head is normocephalic and atraumatic. Pupils are equal, round, and reactive to light. Extraocular muscles are intact. No nasal discharge. No facial trauma. Intraoral exam shows moist mucous membranes with no tonsillar enlargement or exudate. Neck: Supple with no cervical lymphadenopathy. Heart: Regular rate without murmur, rub, or gallop. Lungs: Equal breath sounds bilaterally with no wheezing, rales, or rhonchi. There is no chest wall tenderness or instability. Abdomen: No external sign of injury. Bowel sounds are present. Abdomen is soft, nontender. No rebound, no guarding, no rigidity. There are no palpable masses. There is no flank pain on exam. Extremities: Strong peripheral pulses. There is no clubbing, no cyanosis, and no edema. Right lower leg is wrapped on at resident, draining yellow fluid Skin: right lower leg ulcer, nonhealing with the granulation tissue approximately 5 x 10 cm Neurologic: Cranial nerves II-XII intact without motor, sensory, or cerebellar deficit, no asterixis. laboratory and microbiology Laboratory Tests 01/13/25 06:45 Test 01/13/25 06:45 Range/Units Serum Glucose 102 74-106 mg/dL Microbiology Date/Time Source Procedure Growth Status 01/12/25 01:10 Nose MRSA Screen - Final Complete Labs and/or images reviewed: Labs reviewed by me, Image(s) reviewed by me Problem List/Assessment/Plan Problem List/Assessment/Plan Assessment/Plan #Right lower leg cellulitis, growing Pseudomonas and Klebsiella #Chronic nonhealing wound on right lower leg Right lower leg skin graft procedure by Dr. Avery on 01/13/25 Admit to med surge IV fluids, 125 mL NS Cefepime 2 g IV b.i.d. Vancomycin IV Podiatry consult placed Keep NPO after midnight Blood culture pending Lactic acid within normal limits, pending ESR and CRP Pain management with morphine and Cando as needed US Point of Care Vascular Access pending Chest X-Ray shows acute cardiopulmonary disease. #Anemia normocytic normochromic, mild Monitor #Acute constipation Colace b.i.d. p.r.n. Dulcolax 10 mg p.o. once MiraLax 17 g p.o. 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 Galvez Plan discussed with: Patient Date of Service: Jan 13, 2025 Billing Provider: DAVI GALVEZ MD Common Visit Codes: [id number] INP/OBS CARE(HIGH) VENU LIZ RESIDENT Jan 13, 2025 13:40 DAVI GALVEZ MD Jan 19, 2025 20:15
[2025-01-13] MEDS: BUPIVACAINE HCL 50 ML ONE (16:15)
[2025-01-13] MEDS: fentaNYL CITRATE 100 MCG/2 ML VL ONE (16:16)
[2025-01-13] MEDS: HYDROmorphone HCL 2 MG/ML VL/or syr ONE (16:16)
[2025-01-13] MEDS: ACETAMINOPHEN IV 100 ML IV ONE (16:16)
[2025-01-13] MEDS: VANCOMYCIN 1.25GM/250ML 250 ML IV SCH (16:28)
[2025-01-13] MEDS: MORPHINE SULFATE 4 MG/ML SYR/VIAL IV PRN (17:06)
[2025-01-14] VITALS (7 sets, daily range): BP systolic 109–143; BP diastolic 64–90; PULSE 88–120; RESP 16–20; TEMP 98–98.4; O2SAT 96–98
[2025-01-14 07:53] LABS: Hematocrit 28.8 % (36.0-46.0); Hemoglobin 9.0 g/dL (12.2-16.2); Mean Corpuscular Hemoglobin 28.2 pg (28.0-32.0); Mean Corpuscular Volume 90.0 fL (80.0-100.0); Nucleated Red Blood Cells % 0.0 %
[2025-01-14 08:04] LABS: Anion Gap 11 (5-15); Potassium 4.2 mmol/L (3.5-5.1); Sodium 140 mmol/L (136-145)
[2025-01-14 08:06] LABS: Calcium 8.9 mg/dL (8.7-10.4)
[2025-01-14 08:07] LABS: Carbon Dioxide 20 mmol/L (20-31); Chloride 109 mmol/L (98-107)
[2025-01-14 08:10] LABS: Glucose 88 mg/dL (74-106)
[2025-01-14 08:11] LABS: BUN/Creatinine Ratio 13.2 (10.0-20.0); Blood Urea Nitrogen 14 mg/dL (9-23)
[2025-01-14] MEDS: OXYCODONE W/ ACETAMINOPHEN 5/325MG TABLET PO PRN (14:25)
--- NOTE | 2025-01-14 17:27 | DVHPNRES ---
Progress Note Date Seen: Jan 14, 2025 Resident Creating Document: VENU LIZ Medical Necessity Reason Pt with a Central, PICC or Fol: No Subjective Review of Systems Patient is a 39-year-old male with past medical history of SLE, T2DM presented to [facility] ED with complaint of right lower leg wound. The patient reported that she was recently evaluated by Dr. Avery for preoperative clearance related to a right lower leg skin graft procedure. She currently describes a sensation of warmth throughout her body, decreased appetite, generalized weakness, and constipation. She also reports moderate to severe pain at the surgical site on her right leg, which is being managed with tramadol and ibuprofen. She denies experiencing significant chills, fever, chest pain, shortness of breath, abdominal pain, nausea, or vomiting. The patient has been hospitalized twice in the past month due to concerns related to her chronic wound; on both occasions, she left against medical advice (AMA). Her most recent wound culture revealed growth of Klebsiella and Pseudomonas, both sensitive to cefepime. On initial examination, the patient was evaluated at the bedside. She continues to complain of right leg pain and generalized weakness but denies any other significant symptoms. In the emergency department, she was administered IV fluids and Malcolm. 01/14- Patient was seen and examined at bedside. Overnight events were reviewed. On evaluation today, she states pain is unmanageable. Surgical site and bandage are clean, dry, and intact. Patient is able to move toes without difficulty. Objective vital signs Vital Sign Date Time Temp Pulse Resp B/P (MAP) Pulse Ox O2 Delivery O2 Flow Rate FiO2 01/14/25 17:10 98.2 102 20 120/74 (89) 98 98.2 01/14/25 07:30 Room Air* 0 21 Total Intake and Output 01/13/25 01/13/25 01/14/25 15:00 23:00 07:00 Intake Total 100 ml 300 ml 650 ml Output Total 1 ml Balance 100 ml 299 ml 650 ml medications Current Medications Medications Dose Ordered Sig/Jose Route Start Time Stop Time Status Last Admin Dose Admin Ondansetron HCl 4 mg Q4HP PRN IV 01/12/25 16:00 01/13/25 16:30 4 MG Docusate Sodium 100 mg BIDPRN PRN PO 01/12/25 16:00 Cefepime HCl 50 ml @ 12.5 mls/hr Q12HR IV 01/12/25 22:00 UNV Vancomycin HCl 0 ml @ 0 mls/hr UD IV 01/12/25 16:00 Cefepime HCl 50 ml @ 12.5 mls/hr Q12HR IV 01/13/25 10:00 01/14/25 10:04 12.5 MLS/HR Sodium Chloride 10 ml QSHIFT@10,22 IV 01/12/25 22:00 01/14/25 10:04 10 ML Vancomycin HCl 250 ml @ 200 mls/hr Q12H IV 01/13/25 15:00 01/14/25 14:36 200 MLS/HR Fentanyl Citrate 25 mcg [id number] PRN IV 01/13/25 13:00 01/13/25 13:05 25 MCG Oxycodone/ Acetaminophen 2 tab Q4HP PRN PO 01/14/25 10:15 01/14/25 14:25 2 TAB Hydromorphone HCl 2 mg Q2HPRN PRN IV 01/14/25 10:15 Examination General: Awake, alert, comfortable appearing, in no acute distress. HEENT: Head is normocephalic and atraumatic. Pupils are equal, round, and reactive to light. Extraocular muscles are intact. No nasal discharge. No facial trauma. Intraoral exam shows moist mucous membranes with no tonsillar enlargement or exudate. Neck: Supple with no cervical lymphadenopathy. Heart: Regular rate without murmur, rub, or gallop. Lungs: Equal breath sounds bilaterally with no wheezing, rales, or rhonchi. There is no chest wall tenderness or instability. Abdomen: No external sign of injury. Bowel sounds are present. Abdomen is soft, nontender. No rebound, no guarding, no rigidity. There are no palpable masses. There is no flank pain on exam. Extremities: Strong peripheral pulses. There is no clubbing, no cyanosis, and no edema. Right lower leg is wrapped on at resident, draining yellow fluid Skin: right lower leg ulcer, nonhealing with the granulation tissue approximately 5 x 10 cm Neurologic: Cranial nerves II-XII intact without motor, sensory, or cerebellar deficit, no asterixis. laboratory and microbiology Laboratory Tests 01/14/25 06:45 Test 01/14/25 06:45 Range/Units Serum Glucose 88 74-106 mg/dL Microbiology Date/Time Source Procedure Growth Status 01/13/25 12:07 Leg Right Gram Stain - Final Resulted 01/13/25 12:07 Leg Right Anaerobic Culture - Preliminary Resulted 01/13/25 12:07 Leg Right Aerobic Culture - Preliminary Resulted 01/12/25 15:36 Blood Blood Culture - Preliminary NO GROWTH AFTER 48 HOURS OF INCUBATION. Resulted Labs and/or images reviewed: Labs reviewed by me, Image(s) reviewed by me Problem List/Assessment/Plan Problem List/Assessment/Plan Assessment/Plan #Right lower leg cellulitis, growing Pseudomonas and Klebsiella #Chronic nonhealing wound on right lower leg Right lower leg skin graft procedure by Dr. Avery on 01/13/25 Admit to med surge IV fluids, 125 mL NS Cefepime 2 g IV b.i.d. Vancomycin IV Podiatry consult placed Keep NPO after midnight Blood culture pending Lactic acid within normal limits, pending ESR and CRP Pain management with morphine and Malcolm as needed US Point of Care Vascular Access pending Chest X-Ray shows acute cardiopulmonary disease. #Anemia normocytic normochromic, mild Monitor #Acute constipation Colace b.i.d. p.r.n. Dulcolax 10 mg p.o. once MiraLax 17 g p.o. 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 Galvez Plan discussed with: Patient Date of Service: Jan 14, 2025 Billing Provider: DAVI GALVEZ MD Common Visit Codes: [id number] INP/OBS CARE(HIGH) VENU LIZ RESIDENT Jan 14, 2025 17:27 DAVI GALVEZ MD Jan 19, 2025 20:16
[2025-01-14] MEDS: SODIUM CHLORIDE 0.9% 1,000 ML IV ONE (18:28)
[2025-01-14] MEDS: HYDROmorphone HCL 2 MG/ML VL/or syr IV PRN (21:10)
[2025-01-15] VITALS (7 sets, daily range): BP systolic 104–137; BP diastolic 67–87; PULSE 72–100; RESP 14–20; TEMP 97–98.2; O2SAT 94–100
[2025-01-15 07:51] LABS: Hematocrit 27.6 % (36.0-46.0); Hemoglobin 8.7 g/dL (12.2-16.2); Mean Corpuscular Hemoglobin 28.4 pg (28.0-32.0); Mean Corpuscular Volume 89.9 fL (80.0-100.0); Nucleated Red Blood Cells % 0.1 %
[2025-01-15 07:59] LABS: Anion Gap 10 (5-15); Calcium 9.2 mg/dL (8.7-10.4); Carbon Dioxide 23 mmol/L (20-31); Chloride 110 mmol/L (98-107); Potassium 3.9 mmol/L (3.5-5.1); Sodium 143 mmol/L (136-145)
[2025-01-15 08:05] LABS: BUN/Creatinine Ratio 15.2 (10.0-20.0); Blood Urea Nitrogen 14 mg/dL (9-23); Glucose 93 mg/dL (74-106)
[2025-01-15] MEDS: DOCUSATE SOD 100 MG CAP PO PRN (09:32)
[2025-01-15] MEDS ORDERED: TRAM-626 PO (15:06)
[2025-01-15] MEDS ORDERED: IBUP-1456 PO (15:06)
--- NOTE | 2025-01-15 17:09 | DVHDSRES ---
Discharge Summary Date of Admission Resident Creating Document: VENU LIZ RESIDENT Jan 12, 2025 at 15:56 Date of Discharge: Jan 15, 2025 Admitting Diagnosis Right Leg Cellulitis Labs/Diagnostic Data: Laboratory Results Test 01/15/25 07:02 01/13/25 06:45 01/12/25 15:56 01/12/25 15:09 White Blood Count 5.8 10^3/uL (4.4-10.8) Red Blood Count 3.07 10^6/uL (4.0-5.20) Hemoglobin 8.7 g/dL (12.2-16.2) Hematocrit 27.6 % (36.0-46.0) Mean Corpuscular Volume 89.9 fL (80.0-100.0) Mean Corpuscular Hemoglobin 28.4 pg (28.0-32.0) Mean Corpuscular Hemoglobin Concent 31.6 g/dL (32.0-36.0) Red Cell Distribution Width 19.2 % (11.8-14.3) Platelet Count 286 10^3/uL (140-450) Mean Platelet Volume 8.0 fL (6.9-10.8) Neutrophils (%) (Auto) 57.6 % (37.0-80.0) Lymphocytes (%) (Auto) 25.5 % (10.0-50.0) Monocytes (%) (Auto) 10.5 % (0.0-12.0) Eosinophils (%) (Auto) 6.0 % (0.0-7.0) Basophils (%) (Auto) 0.4 % (0.0-2.0) Neutrophils # (Auto) 3.3 10 ^3/uL (1.6-8.6) Lymphocytes # (Auto) 1.5 10 ^3/uL (0.4-5.4) Monocytes # (Auto) 0.6 10 ^3/uL (0-1.3) Eosinophils # (Auto) 0.3 10 ^3/uL (0-0.8) Basophils # (Auto) 0 10 ^3/uL (0-0.2) Nucleated Red Blood Cells 0.1 % Sodium Level 143 mmol/L (136-145) Potassium Level 3.9 mmol/L (3.5-5.1) Chloride Level 110 mmol/L (98-107) Carbon Dioxide Level 23 mmol/L (20-31) Anion Gap 10 (5-15) Blood Urea Nitrogen 14 mg/dL (9-23) Creatinine 0.92 mg/dL (0.550-1.02) Glomerular Filtration Rate Calc 82 mL/min (>90) BUN/Creatinine Ratio 15.2 (10.0-20.0) Serum Glucose 93 mg/dL (74-106) Calcium Level 9.2 mg/dL (8.7-10.4) Total Bilirubin 0.3 mg/dL (0.2-1.0) Aspartate Amino Transferase (AST) 22 U/L (13-40) Alanine Aminotransferase (ALT) 18 U/L (7-40) Alkaline Phosphatase 97 U/L (46-116) Total Protein 7.4 g/dL (5.7-8.2) Albumin 3.9 g/dL (3.2-4.8) Random Vancomycin Level 14.9 ug/mL (5-10) Urine Opiates Screen Neg (NEGATIVE) Urine Fentanyl Screen Neg (NEGATIVE) Urine Barbiturates Screen Neg (NEGATIVE) Urine Phencyclidine Screen Neg (NEGATIVE) Urine Amphetamines Screen Neg (NEGATIVE) Urine Benzodiazepines Screen Neg (NEGATIVE) Urine Cocaine Screen Neg (NEGATIVE) Urine Cannabinoids Screen Neg (NEGATIVE) Erythrocyte Sedimentation Rate 89 mm/hr (0-20) Prothrombin Time 11.0 sec (9.3-11.8) Prothrombin Time INR 1.04 (0.9-1.15) Activated Partial Thromboplast Time 30.4 SEC (24.5-34.5) Lactic Acid Level 0.6 mmol/L (0.4-2.0) C-Reactive Protein High Sensitivity 7.80 mg/dL (<1.0) Beta HCG, Quantitative 1.5 mIU/mL (1.5-4.2) Test 01/12/25 14:48 Urine Color Light-yellow (Yellow) Urine Clarity Turbid (Clear) Urine pH 6.0 (5.0-9.0) Urine Specific [place] 1.017 (1.001-1.035) Urine Protein Trace (Negative) Urine Ketones Negative (Negative) Urine Blood Negative /uL (Negative) Urine Nitrite Negative (Negative) Urine Bilirubin Negative (Negative) Urine Urobilinogen Normal mg/dL (Negative) Urine Leukocyte Esterase Trace /uL (Negative) Urine RBC 1 /hpf (0 - 4) Urine Microscopic WBC 14 /HPF (0-5) Urine Squamous Epithelial Cells Mod /hpf (<5) Urine Bacteria Few /hpf (None Seen) Urine Hyaline Casts Few /lpf (0 - 2) Urine Glucose Normal mg/dL (Normal) Other Laboratory Tests 01/15/25 07:02 Brief Hx & Hospital Course: The patient is a 39-year-old male with a past medical history of systemic lupus erythematosus (SLE) and type 2 diabetes mellitus who presented to [facility] ED with complaints of right lower leg pain and a chronic nonhealing wound. He was recently evaluated by Dr. Avery for preoperative clearance for a right lower leg skin graft, which was performed on 01/13/25. On presentation, the patient reported generalized weakness, body warmth, decreased appetite, constipation, and moderate to severe pain at the surgical site. He denied fever, chills, chest pain, shortness of breath, abdominal pain, nausea, or vomiting. The patient has had two prior hospitalizations in the past month for the same wound, both ending in discharge against medical advice. Recent wound cultures grew Klebsiella and Pseudomonas, both sensitive to cefepime. On admission, he was evaluated at bedside and found to be alert and in no acute distress. The surgical site was clean, dry, and intact, with granulation tissue noted. He was admitted to the medical-surgical unit and started on IV cefepime and vancomycin. Pain was managed with morphine and [place]. Additional management included IV fluids, bowel regimen for constipation, and counseling for cannabis dependence. Blood cultures were drawn, and ESR/CRP were pending. A podiatry consult was placed, and vascular access and imaging studies were initiated. Chest X-ray revealed acute cardiopulmonary disease. 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 López. On evaluation today, she states she is well, pain is manageable. Her vitals have remained stable for discharge home with home health, follow up visit in discharge clinic. All medications and recommendations were thoroughly explained and the patient states she understands and agrees. Detailed discussion held with patient at bedside were all questions were answered and concerns were addressed. Examination General: Awake, alert, comfortable appearing, in no acute distress. HEENT: Head is normocephalic and atraumatic. Pupils are equal, round, and reactive to light. Extraocular muscles are intact. No nasal discharge. No facial trauma. Intraoral exam shows moist mucous membranes with no tonsillar enlargement or exudate. Neck: Supple with no cervical lymphadenopathy. Heart: Regular rate without murmur, rub, or gallop. Lungs: Equal breath sounds bilaterally with no wheezing, rales, or rhonchi. There is no chest wall tenderness or instability. Abdomen: No external sign of injury. Bowel sounds are present. Abdomen is soft, nontender. No rebound, no guarding, no rigidity. There are no palpable masses. There is no flank pain on exam. Extremities: Strong peripheral pulses. There is no clubbing, no cyanosis, and no edema. Right lower leg is wrapped on at resident, draining yellow fluid Skin: right lower leg ulcer, nonhealing with the granulation tissue approximately 5 x 10 cm Neurologic: Cranial nerves II-XII intact without motor, sensory, or cerebellar deficit, no asterixis. Operations or Procedures PATIENT: NAT ARNOLD ACCT: [id number] UNIT: [id number] : 1985 LOC: OVERFLOW ROOM / BED: [address] [place] [address] AGE / SEX: 39 / F ADM STATUS: ADM IN SERVICE 1556 ORDERING PHYSICIAN: AIRAM CARRILLO RESIDENT PROCEDURE(s): CXR1 - CHEST XRAY 1 VIEW REASON: sob ORDER NUMBER(s): [id number], ACCESSION NUMBER(s): [id number] CHEST RADIOGRAPH Indication: sob Technique: Single frontal view of the chest was obtained Comparison: XY CHEST PORTABLE on DOS: 12/30/24 FINDINGS: Lines and Tubes: None Lungs: No focal consolidation. Pleura: No effusion. No pneumothorax. Cardiomediastinal contours: Unremarkable Bones: No acute osseous abnormality. IMPRESSION: 1. No acute cardiopulmonary disease. ------ Operative Report - 2 Report Details Date: 01/13/25 Preop Diagnosis: 1. Right leg chronic ulcer 2. Right leg cellulitis 3. Right leg pain Postop Diagnosis: Same as preop Surgeon: Ruben Avery MD Anesthesiologist: See anesthesia Anesthesia: General Consent: The patient was informed of the risks and benefits of the procedure. These include but are not limited to complications of anesthesia, postoperative infection, incomplete relief of symptoms, recurrence of symptoms, damage to blood vessels, nerves and tendons, deep venous thrombosis, pulmonary embolism and possible need for repeat surgery in the future. Complications: None Estimated Blood Loss: Minimal Fluids: See anesthesia Findings: Consistent with diagnosis Indications for Surgery: Worsening right leg wound Name of Procedure Performed 1. Right leg debridement (78399) Procedure Details Procedure Details: PRE-PROCEDURE INFORMATION: In the pre-op holding area, the extremity to be operated on was clearly marked and the patient verified correct laterality of the marking. The patient was transferred to the OR table and placed in a supine position. A timeout was performed in which identification of the correct patient, procedure, location, and materials was done. The right leg foot and leg were prepped and draped in normal sterile fashion. DESCRIPTION OF PROCEDURE: Attention was directed to the right anterior leg where the chronic ulceration was located. Using a 15 Blade and curette, debridement was performed down to the level of the muscle fascial layer. Significant fibrosis and bilayer was noted. The area was then flushed with 3 L of normal saline. It was dressed with Xeroform, 4x4s, ABD, Pako deep cultures were taken. POSTOPERATIVE INFORMATION: The patient tolerated the above noted procedure and anesthesia well and was transferred to the PACU with vital signs stable, and vascular status intact with capillary refill intact to all digits. Patient will return to the floor and continue IV antibiotics. Deep cultures were taken. Patient will need 6 weeks IV antibiotics. Dressing change Xeroform, 4x4s, ABD, Pako. Placed PICC line and follow up with the next week Condition Good Disposition Still a Patient Visit Coding Podiatry Date of Service if different f: Jan 13, 2025 Billing Provider: RUBEN AVERY DPM Podiatry Common Visit Codes: PROCEDURE ONLY RUBEN AVERY DPM Jan 13, 2025 12:17 DICTATED BY:RUBEN AVERY DPM DICTATED DATE/TIME:01/13/251216 ELECTRONICALLY SIGNED BY:RUBEN AVERY DPM 01/13/251216 Condition at Discharge: Good Final Diagnosis/Problems List #Right lower leg cellulitis, growing Pseudomonas #Chronic nonhealing wound on right lower leg #Anemia normocytic normochromic, mild #Acute constipation #Cannabis dependence #History of SLE Discharge Disposition: Home with Health Services Discharge Instruct/Medications Diet: Regular Activity: No Restrictions, As Tolerated Follow Up/Referral: Follow up with PCP within 1-2 weeks. Medications: Levaquin IV ATB 750mg daily x 6 weeks continue home medications Scheduled Ibuprofen (Ibuprofen), 1 TAB PO BID Scheduled PRN Hydrocodone-Acetaminophen (Hydrocodone/Acetaminophen 10-325 mg), 1 TAB PO QID PRN Tramadol HCl (Tramadol HCl), 50 MG PO Q6HP PRN Miscellaneous Medications Linezolid (Zyvox), 600 MG PO, (Reported) Discontinued Medications Ibuprofen Micronized (Ibuprofen), 800 MG PO, (Reported) Discharge Statement: "Patient was advised to return to the ER or call 911 if any headaches, dizziness, shortness of breath, chest pain, abdominal pain, bleeding, fevers, or worsening of medical condition. Patient was counseled about treatment plan, medications, possible side effects, patientverbalized understanding. All questions were answered to the best of my ability. This discharge took greater then 30 minutes in planning, reviewing documentation, counseling the patient, and discussing with other team members." ASSESSMENT ASSESSMENT Assessment #Right lower leg cellulitis, growing Pseudomonas and Klebsiella #Chronic nonhealing wound on right lower leg #Anemia normocytic normochromic, mild #Acute constipation #Cannabis dependence #History of SLE Date of Service: Jan 15, 2025 Billing Provider: DAVI VARGAS MD Common Visit Codes: 33071-RPG/OBS DISCH DAY >30min VENU LIZ RESIDENT Jan 15, 2025 17:09 DAVI VARGAS MD Jan 19, 2025 20:15
[2025-01-16 01:00] VITALS: BP 119/69; PULSE 76; RESP 18; TEMP 97.1; O2SAT 91
[2025-01-16 05:00] VITALS: BP 129/87; PULSE 79; RESP 17; TEMP 97.2; O2SAT 93
[2025-01-16 08:00] VITALS: PULSE 61; RESP 16; O2SAT 98
[2025-01-16 08:39] VITALS: BP 130/75; PULSE 61; RESP 16; TEMP 98; O2SAT 98
[2025-01-16] MEDS: BISACODYL 5 MG EC TAB PO ONE (10:30)
[2025-01-16] MEDS: POLYETHYLENE GLYCOL 17 GM PWDR PO ONE (11:45)
--- NOTE | 2025-01-16 11:59 | DVHPNRES ---
Progress Note Date Seen: Jan 16, 2025 Resident Creating Document: VENU LIZ Medical Necessity Reason Pt with a Central, PICC or Fol: No Subjective Review of Systems Patient is a 39-year-old male with past medical history of SLE, T2DM presented to [facility] ED with complaint of right lower leg wound. The patient reported that she was recently evaluated by Dr. Avery for preoperative clearance related to a right lower leg skin graft procedure. She currently describes a sensation of warmth throughout her body, decreased appetite, generalized weakness, and constipation. She also reports moderate to severe pain at the surgical site on her right leg, which is being managed with tramadol and ibuprofen. She denies experiencing significant chills, fever, chest pain, shortness of breath, abdominal pain, nausea, or vomiting. The patient has been hospitalized twice in the past month due to concerns related to her chronic wound; on both occasions, she left against medical advice (AMA). Her most recent wound culture revealed growth of Klebsiella and Pseudomonas, both sensitive to cefepime. On initial examination, the patient was evaluated at the bedside. She continues to complain of right leg pain and generalized weakness but denies any other significant symptoms. In the emergency department, she was administered IV fluids and [place]. 01/14- Patient was seen and examined at bedside. Overnight events were reviewed. On evaluation today, she states pain is unmanageable. Surgical site and bandage are clean, dry, and intact. Patient is able to move toes without difficulty. 01/15- Patient was seen and examined at bedside. Overnight events were reviewed. On evaluation today, she states she is well, pain is manageable except her constipation. Her vitals have remained stable for discharge home with home health, follow up visit in discharge clinic. All medications and recommendations were thoroughly explained and the patient states she understands and agrees. Detailed discussion held with patient at bedside were all questions were answered and concerns were addressed. Objective vital signs Vital Sign Date Time Temp Pulse Resp B/P (MAP) Pulse Ox O2 Delivery O2 Flow Rate FiO2 01/16/25 08:39 98.0 61 16 130/75 (93) 98 98.0 01/15/25 20:00 Room Air* 0 21 Total Intake and Output 01/15/25 01/15/25 01/16/25 15:00 23:00 07:00 Intake Total 290 ml 680 ml 700 ml Output Total 700 ml Balance 290 ml -20 ml 700 ml medications Current Medications Medications Dose Ordered Sig/Jose Route Start Time Stop Time Status Last Admin Dose Admin Ondansetron HCl 4 mg Q4HP PRN IV 01/12/25 16:00 01/13/25 16:30 4 MG Docusate Sodium 100 mg BIDPRN PRN PO 01/12/25 16:00 01/15/25 09:32 100 MG Cefepime HCl 50 ml @ 12.5 mls/hr Q12HR IV 01/12/25 22:00 UNV Cefepime HCl 50 ml @ 12.5 mls/hr Q12HR IV 01/13/25 10:00 01/16/25 09:44 12.5 MLS/HR Sodium Chloride 10 ml QSHIFT@10,22 IV 01/12/25 22:00 01/16/25 10:13 10 ML Fentanyl Citrate 25 mcg [id number] PRN IV 01/13/25 13:00 01/13/25 13:05 25 MCG Oxycodone/ Acetaminophen 2 tab Q4HP PRN PO 01/14/25 10:15 01/14/25 14:25 2 TAB Hydromorphone HCl 2 mg Q2HPRN PRN IV 01/14/25 10:15 01/15/25 22:05 2 MG Examination General: Awake, alert, comfortable appearing, in no acute distress. HEENT: Head is normocephalic and atraumatic. Pupils are equal, round, and reactive to light. Extraocular muscles are intact. No nasal discharge. No facial trauma. Intraoral exam shows moist mucous membranes with no tonsillar enlargement or exudate. Neck: Supple with no cervical lymphadenopathy. Heart: Regular rate without murmur, rub, or gallop. Lungs: Equal breath sounds bilaterally with no wheezing, rales, or rhonchi. There is no chest wall tenderness or instability. Abdomen: No external sign of injury. Bowel sounds are present. Abdomen is soft, nontender. No rebound, no guarding, no rigidity. There are no palpable masses. There is no flank pain on exam. Extremities: Strong peripheral pulses. There is no clubbing, no cyanosis, and no edema. Right lower leg is wrapped on at resident, draining yellow fluid Skin: right lower leg ulcer, nonhealing with the granulation tissue approximately 5 x 10 cm Neurologic: Cranial nerves II-XII intact without motor, sensory, or cerebellar deficit, no asterixis. laboratory and microbiology Laboratory Tests 01/15/25 07:02 Test 01/15/25 07:02 Range/Units Serum Glucose 93 74-106 mg/dL Microbiology Date/Time Source Procedure Growth Status 01/13/25 12:07 Leg Right Gram Stain - Final Resulted 01/13/25 12:07 Leg Right Anaerobic Culture - Preliminary Resulted 01/13/25 12:07 Aerobic Culture - Preliminary Pseudomonas aeruginosa Resulted 01/12/25 15:36 Blood Blood Culture - Preliminary NO GROWTH AFTER 72 HOURS OF INCUBATION. Resulted Labs and/or images reviewed: Labs reviewed by me, Image(s) reviewed by me Problem List/Assessment/Plan Problem List/Assessment/Plan Assessment/Plan #Right lower leg cellulitis, growing Pseudomonas and Klebsiella #Chronic nonhealing wound on right lower leg Right lower leg skin graft procedure by Dr. Avery on 01/13/25 Admit to med surge IV fluids, 125 mL NS Cefepime 2 g IV b.i.d. Vancomycin IV Podiatry consult placed Keep NPO after midnight Blood culture pending Lactic acid within normal limits, pending ESR and CRP Pain management with morphine and [place] as needed US Point of Care Vascular Access pending Chest X-Ray shows acute cardiopulmonary disease. #Anemia normocytic normochromic, mild Monitor #Acute constipation Colace b.i.d. p.r.n. Dulcolax 10 mg p.o. once MiraLax 17 g p.o. once #Cannabis dependence Counseled on lifestyle modifications, smoking cessation Ordered UDS #History of SLE Dr. López is her taper/finisher Goals of care: Full code, discussed for >16 minutes on 01/16/25 Plan discussed with patient Plan discussed with Dr. Galvez Plan discussed with: Patient My Orders My Orders Orders - VENU LIZ Procedure Category Date Status Time Discharge DISCHARGE 01/15/25 Transmitted 15:03 Dietary Evaluation Review Comments: Monitor PO intake, lab values, weight trend, and I/O Expected Outcomes/Goals: Wound to improve Fu 3-5 days Date of Service: Jan 16, 2025 Billing Provider: DAVI GALVEZ MD Common Visit Codes: [id number] INP/OBS CARE(MOD) VENU LIZ Jan 16, 2025 11:59 DAVI GALVEZ MD Jan 19, 2025 20:16
[2025-01-16 12:44] VITALS: BP 122/80; PULSE 80; RESP 20; TEMP 98.8; O2SAT 98
[2025-01-16] MEDS ORDERED: SENNA 8.6 MG TAB PO SCH (22:00)
[2025-01-16] MEDS ORDERED: DOCUSATE SOD 100 MG CAP PO SCH (22:00)
== END 2025-01-16 16:18 | disposition home health service (06) | DRG 364 ==
LOC: ER 12:09 → OVERFLOW 15:56 → WEST WING 17:47
PROVIDERS: ADMIT Internal Medicine Geriatric Medicine; ATTEND Podiatrist
PROC: 02HV33Z Insertion of Infusion Device into Superior Vena Cava, Percutaneous Approach (ICD-10-PCS; 2025-01-12)
PROC: B548ZZA Ultrasonography of Superior Vena Cava, Guidance (ICD-10-PCS; 2025-01-12)
PROC: 0KBS0ZZ Excision of Right Lower Leg Muscle, Open Approach (ICD-10-PCS; principal; 2025-01-13 11:44)
DX: L03.115 Cellulitis of right lower limb (principal); N17.0 Acute kidney failure with tubular necrosis; B96.1 Klebsiella pneumoniae [K. pneumoniae] as the cause of diseases classified elsewhere; B96.5 Pseudomonas (aeruginosa) (mallei) (pseudomallei) as the cause of diseases classified elsewhere; D64.9 Anemia, unspecified; E11.622 Type 2 diabetes mellitus with other skin ulcer; L97.818 Non-pressure chronic ulcer of other part of right lower leg with other specified severity; F12.20 Cannabis dependence, uncomplicated; K59.00 Constipation, unspecified; Z88.8 Allergy status to other drugs, medicaments and biological substances; Z80.3 Family history of malignant neoplasm of breast
CPT/HCPCS: 36415; 36569; 71045; 76937; 80048; 80053; 80202; 80307; 81001; 83605; 84702; 85025; 85610; 85652; 85730; 86141; 86850; 86900; 86901; 87040; 87070; 87075; 87077; 87081; 87186; 87205; 99291; 99292; G0378; J0131; J0692; J2405; J2704; J3490

== ENCOUNTER 2025-01-22 09:43 | Emergency (ER) | payer MEDICAID ==
[~2025-01-22 09:43] MED LIST changes: -IBUP-1455 PO; +IBUP-1456 PO; +TRAM-626 PO
== END 2025-01-22 09:55 | disposition left against medical advice (07) ==
LOC: ER 09:43
DX: Z46.59 Encounter for fitting and adjustment of other gastrointestinal appliance and device (principal); Z79.899 Other long term (current) drug therapy